=== PATIENT | female | born 1940 | race Caucasian/White ===

== ENCOUNTER → 2016-06-06 | Outpatient (REF) | payer MEDICARE ==
[~2016-06-06] MED LIST: ACET65TA PO; BENA20TA2 PO; CALCTAB22 OR; COUM10TA OR; GABA-279 PO; GABA300C3 PO; GABA300T OR; GLIP5TAB8 PO; GLUC500T OR; IBUP600T OR; LIDO5DIS EX; LIDO5DIS TOP; LISI10TA4 OR; LISI20TA5 OR; METF750T PO; MULTIVIT PO; NEUR400C OR; NEUR400C PO; NUCY50TA9 PO; PRAV10TA PO; PREV15CA OR; SIMV10TA2 OR; SIMV20TA2 OR; TRAM50TA2 PO; TRAN1.5D2 TOP; VITAMIN D50000 UNT OR; VOLT1GEL EX; WARF5VL PO; fish oil PO; vitamin c PO
[2016-06-06 12:51] LABS: ALBUMIN 3.7 GM/DL (3.2-5.2); ALBUMIN/GLOBULIN RATIO 1.28 (1.00-1.93); ALKALINE PHOSPHATASE 78 U/L (45-117); ALT/SGPT 44 U/L (12-78); ANION GAP 11 MEQ/L (8-16); AST/SGOT 28 U/L (15-37); BILIRUBIN,TOTAL 0.7 MG/DL (0.2-1.0); BLOOD UREA NITROGEN 11 MG/DL (7-18); CARBON DIOXIDE LEVEL 25 MEQ/L (21-32); CHLORIDE LEVEL 106 MEQ/L (98-107); CREATININE FOR GFR 0.57 MG/DL (0.55-1.02); GLOMERULAR FILTRATION RATE > 60.0 (>39); GLUCOSE, FASTING 186 MG/DL (83-110); POTASSIUM SERUM 4.1 MEQ/L (3.5-5.1); SODIUM LEVEL 142 MEQ/L (136-145); TOTAL PROTEIN 6.6 GM/DL (6.4-8.2)
== END ==
LOC: M LABDRAW1 11:32
PROVIDERS: ATTEND Internal Medicine
DX: E11.9 Type 2 diabetes mellitus without complications (principal); E55.9 Vitamin D deficiency, unspecified

== ENCOUNTER → 2016-08-06 | Outpatient (REF) | payer MEDICARE ==
[2016-08-06 18:12] LABS: VITAMIN B12 LEVEL 765 PG/ML (247-911)
[2016-08-06 18:13] LABS: FOLATE > 24.0 NG/ML (>5.4)
[2016-08-06 18:32] LABS: FERRITIN 27 NG/ML (8-252); T UPTAKE 31 % (30-39); THYROXINE (T4) 10.5 UG/DL (4.5-12.0); TOTAL IRON BINDING CAPACITY 385 UG/DL (250-450)
[2016-08-10 08:06] LABS: VITAMIN E LEVEL 7.9 mg/L (6.5-21.5)
== END ==
LOC: M LABNEURO 16:00
PROVIDERS: ATTEND Psychiatry & Neurology Neurology
DX: E11.40 Type 2 diabetes mellitus with diabetic neuropathy, unspecified (principal); Z13.29 Encounter for screening for other suspected endocrine disorder; E61.1 Iron deficiency

== ENCOUNTER → 2016-10-08 | Outpatient (REF) | payer MEDICARE ==
[~2016-10-08] MED LIST changes: +GABA-282 PO; -GABA300C3 PO
[2016-10-08 12:16] LABS: ALBUMIN 3.8 GM/DL (3.2-5.2); ALBUMIN/GLOBULIN RATIO 1.06 (1.00-1.93); ALKALINE PHOSPHATASE 98 U/L (45-117); ALT/SGPT 58 U/L (12-78); ANION GAP 11 MEQ/L (8-16); AST/SGOT 41 U/L (15-37); BILIRUBIN,TOTAL 0.9 MG/DL (0.2-1.0); BLOOD UREA NITROGEN 13 MG/DL (7-18); CALCIUM LEVEL 9.1 MG/DL (8.8-10.2); CARBON DIOXIDE LEVEL 27 MEQ/L (21-32); CHLORIDE LEVEL 101 MEQ/L (98-107); CHOLESTEROL LEVEL 175 MG/DL (<200); GLOMERULAR FILTRATION RATE > 60.0 (>39); GLUCOSE, FASTING 177 MG/DL (83-110); MAGNESIUM LEVEL 1.6 MG/DL (1.8-2.4); POTASSIUM SERUM 4.3 MEQ/L (3.5-5.1); SODIUM LEVEL 139 MEQ/L (136-145); TOTAL PROTEIN 7.4 GM/DL (6.4-8.2); TRIGLYCERIDES LEVEL 101 MG/DL (<150)
== END ==
LOC: M SFHCPLAZ 09:54
PROVIDERS: ATTEND Internal Medicine
DX: G25.81 Restless legs syndrome (principal); E11.9 Type 2 diabetes mellitus without complications; E78.00 Pure hypercholesterolemia, unspecified; R25.1 Tremor, unspecified

== ENCOUNTER → 2017-01-23 | Outpatient (REF) | payer MEDICARE ==
[~2017-01-23] MED LIST changes: -BENA20TA2 PO; +BENA20TA8 PO; +NUCY50TA6 PO; -NUCY50TA9 PO; -PRAV10TA PO; +PRAV10TA4 PO
[2017-01-23 13:01] LABS: MEAN CORPUSCULAR HEMOGLOBIN 30.8 pg (27.0-33.0); MEAN CORPUSCULAR HGB CONC 33.2 g/dl (32.0-36.5); MEAN CORPUSCULAR VOLUME 92.7 fl (80.0-96.0); RED CELL DISTRIBUTION WIDTH 12.9 % (11.5-14.5); WHITE BLOOD COUNT 7.5 K/mm3 (4.0-10.0)
[2017-01-23 13:46] LABS: ALBUMIN 3.9 GM/DL (3.2-5.2); ALBUMIN/GLOBULIN RATIO 1.22 (1.00-1.93); ALKALINE PHOSPHATASE 73 U/L (45-117); ALT/SGPT 50 U/L (12-78); ANION GAP 10 MEQ/L (8-16); AST/SGOT 36 U/L (15-37); BILIRUBIN,TOTAL 0.8 MG/DL (0.2-1.0); BLOOD UREA NITROGEN 15 MG/DL (7-18); CALCIUM LEVEL 8.6 MG/DL (8.8-10.2); CARBON DIOXIDE LEVEL 25 MEQ/L (21-32); CHLORIDE LEVEL 103 MEQ/L (98-107); CREATININE FOR GFR 0.59 MG/DL (0.55-1.02); GLOMERULAR FILTRATION RATE > 60.0 (>39); GLUCOSE, FASTING 137 MG/DL (83-110); MAGNESIUM LEVEL 1.9 MG/DL (1.8-2.4); POTASSIUM SERUM 4.6 MEQ/L (3.5-5.1); SODIUM LEVEL 138 MEQ/L (136-145); TOTAL PROTEIN 7.1 GM/DL (6.4-8.2)
== END ==
LOC: M LABDRAW1 09:20
PROVIDERS: ATTEND Internal Medicine
DX: G25.81 Restless legs syndrome (principal); E11.9 Type 2 diabetes mellitus without complications; I10 Essential (primary) hypertension

== ENCOUNTER → 2017-05-20 | Outpatient (REF) | payer MEDICARE ==
[2017-05-20 10:59] LABS: ESTIMATED AVERAGE GLUCOSE 146 MG/DL (60-110); HEMOGLOBIN A1c 6.7 %
[2017-05-20 11:04] LABS: ALBUMIN 3.7 GM/DL (3.2-5.2); ALBUMIN/GLOBULIN RATIO 1.09 (1.00-1.93); ALKALINE PHOSPHATASE 76 U/L (45-117); ALT/SGPT 47 U/L (12-78); ANION GAP 10 MEQ/L (8-16); AST/SGOT 38 U/L (7-37); BILIRUBIN,TOTAL 0.9 MG/DL (0.2-1.0); BLOOD UREA NITROGEN 14 MG/DL (7-18); CALCIUM LEVEL 8.9 MG/DL (8.8-10.2); CARBON DIOXIDE LEVEL 25 MEQ/L (21-32); CHLORIDE LEVEL 104 MEQ/L (98-107); CHOLESTEROL LEVEL 173 MG/DL (<200); CHOLESTEROL RISK RATIO 2.661 (<5); CREATININE FOR GFR 0.55 MG/DL (0.55-1.02); GLOMERULAR FILTRATION RATE > 60.0 (>39); GLUCOSE, FASTING 163 MG/DL (83-110); HDL CHOLESTEROL 65 MG/DL (>40); LDL CHOLESTEROL 89.8 MG/DL (<100); MAGNESIUM LEVEL 1.7 MG/DL (1.8-2.4); NON-HDL-C 108 MG/DL; POTASSIUM SERUM 4.2 MEQ/L (3.5-5.1); SODIUM LEVEL 139 MEQ/L (136-145); TOTAL PROTEIN 7.1 GM/DL (6.4-8.2); TRIGLYCERIDES LEVEL 91 MG/DL (<150)
== END ==
LOC: M SFHCPLAZ 08:40
DX: E11.9 Type 2 diabetes mellitus without complications (principal); I10 Essential (primary) hypertension; E78.00 Pure hypercholesterolemia, unspecified; G25.81 Restless legs syndrome
CPT/HCPCS: 83735

== ENCOUNTER → 2017-09-08 | Outpatient (REF) | payer MEDICARE ==
[2017-09-08 10:37] LABS: PLATELET COUNT, AUTOMATED 163 10^3/uL (150-450)
[2017-09-08 10:49] LABS: PROTHROMBIN TIME 14.4 SECONDS (12.4-14.5)
[2017-09-08 10:50] LABS: PARTIAL THROMBOPLASTIN TIME 38.2 SECONDS (26.8-37.9)
== END ==
LOC: M LABDRAW1 10:16
DX: Z01.818 Encounter for other preprocedural examination (principal); Z79.01 Long term (current) use of anticoagulants
CPT/HCPCS: 85049

== ENCOUNTER → 2017-09-30 | Outpatient (REF) | payer MEDICARE ==
[2017-09-30 12:29] LABS: C REACTIVE PROTEIN QUANTITATIV 0.35 MG/DL (0.00-0.30)
== END ==
LOC: M LABDRAW1 11:53
DX: M47.816 Spondylosis without myelopathy or radiculopathy, lumbar region (principal)
CPT/HCPCS: 86140

== ENCOUNTER → 2017-11-28 | Outpatient (REF) | payer MEDICARE ==
[2017-11-28 12:16] LABS: HEMATOCRIT 40.5 % (36.0-47.0); HEMOGLOBIN 13.3 g/dl (12.0-15.5); MEAN CORPUSCULAR HEMOGLOBIN 29.2 pg (27.0-33.0); MEAN CORPUSCULAR HGB CONC 32.8 g/dl (32.0-36.5); PLATELET COUNT, AUTOMATED 148 10^3/uL (150-450); RED BLOOD COUNT 4.55 10^6/uL (4.00-5.40); RED CELL DISTRIBUTION WIDTH 14.6 % (11.5-14.5); WHITE BLOOD COUNT 9.1 10^3/uL (4.0-10.0)
[2017-11-28 12:27] LABS: ALBUMIN 3.5 GM/DL (3.2-5.2); ALBUMIN/GLOBULIN RATIO 1.06 (1.00-1.93); ALKALINE PHOSPHATASE 75 U/L (45-117); ALT/SGPT 53 U/L (12-78); ANION GAP 10 MEQ/L (8-16); AST/SGOT 28 U/L (7-37); BLOOD UREA NITROGEN 14 MG/DL (7-18); CALCIUM LEVEL 8.9 MG/DL (8.8-10.2); CARBON DIOXIDE LEVEL 26 MEQ/L (21-32); CHLORIDE LEVEL 106 MEQ/L (98-107); CREATININE FOR GFR 0.68 MG/DL (0.55-1.30); GLOMERULAR FILTRATION RATE > 60.0 (>39); GLUCOSE, FASTING 137 MG/DL (70-100); MAGNESIUM LEVEL 1.7 MG/DL (1.8-2.4); POTASSIUM SERUM 4.2 MEQ/L (3.5-5.1); SODIUM LEVEL 142 MEQ/L (136-145); TOTAL PROTEIN 6.8 GM/DL (6.4-8.2)
[2017-11-28 18:55] LABS: MALB URINE SIEMENS 25.9 MG/L; MAU/CREAT RATIO 9.4 MCG/MG (0.0-30.0)
== END ==
LOC: M SFHCPLAZ 07:53
DX: G25.81 Restless legs syndrome (principal); I10 Essential (primary) hypertension; E11.9 Type 2 diabetes mellitus without complications
CPT/HCPCS: 83735

== ENCOUNTER → 2018-03-27 | Outpatient (REF) | payer MEDICARE ==
[2018-03-27 17:30] LABS: CREATININE FOR GFR 0.65 MG/DL (0.55-1.30); GLOMERULAR FILTRATION RATE > 60.0 (>39)
[2018-03-27 17:30] LABS: BLOOD UREA NITROGEN 13 MG/DL (7-18)
== END ==
LOC: M LABDRAW1 16:11
DX: M51.36 Other intervertebral disc degeneration, lumbar region (principal)
CPT/HCPCS: 82565

== ENCOUNTER → 2018-07-15 | Outpatient (REF) | payer MEDICARE ==
[~2018-07-15] MED LIST changes: +GABA-1171 PO; -GABA-279 PO; -GABA-282 PO; +GABA-843 PO; +NUCY50TA19 PO; -NUCY50TA6 PO
[2018-07-15 10:18] LABS: HEMOGLOBIN A1c 7.7 %
[2018-07-15 10:28] LABS: ALBUMIN 3.5 GM/DL (3.2-5.2); ALT/SGPT 54 U/L (12-78); BILIRUBIN,TOTAL 1.2 MG/DL (0.2-1.0); BLOOD UREA NITROGEN 12 MG/DL (7-18); CALCIUM LEVEL 8.6 MG/DL (8.8-10.2); CARBON DIOXIDE LEVEL 26 MEQ/L (21-32); CHLORIDE LEVEL 104 MEQ/L (98-107); CREATININE FOR GFR 0.48 MG/DL (0.55-1.30); GLOMERULAR FILTRATION RATE > 60.0 (>39); GLUCOSE, FASTING 157 MG/DL (70-100); POTASSIUM SERUM 3.9 MEQ/L (3.5-5.1); SODIUM LEVEL 139 MEQ/L (136-145)
[2018-07-15 10:42] LABS: MALB URINE SIEMENS 21.7 MG/L; MAU/CREAT RATIO 9.5 MCG/MG (0.0-30.0)
== END ==
LOC: M SFHCPLAZ 08:25
PROVIDERS: ATTEND Internal Medicine
DX: I10 Essential (primary) hypertension (principal); E11.9 Type 2 diabetes mellitus without complications

== ENCOUNTER → 2018-10-23 | Outpatient (REF) | payer MEDICARE ==
[~2018-10-23] MED LIST changes: +SCOP1PAT2 TOP; -TRAN1.5D2 TOP
[2018-10-23 11:05] LABS: HEMOGLOBIN 13.1 g/dl (12.0-15.5); MEAN CORPUSCULAR HEMOGLOBIN 30.6 pg (27.0-33.0); MEAN CORPUSCULAR HGB CONC 33.6 g/dl (32.0-36.5); MEAN CORPUSCULAR VOLUME 91.1 fl (80.0-96.0); PLATELET COUNT, AUTOMATED 149 10^3/uL (150-450); RED BLOOD COUNT 4.28 10^6/uL (4.00-5.40); WHITE BLOOD COUNT 8.2 10^3/uL (4.0-10.0)
[2018-10-23 11:14] LABS: HEMOGLOBIN A1c 9.4 %
[2018-10-23 11:26] LABS: ALBUMIN 3.5 GM/DL (3.2-5.2); ALT/SGPT 46 U/L (12-78); BILIRUBIN,TOTAL 1.1 MG/DL (0.2-1.0); BLOOD UREA NITROGEN 11 MG/DL (7-18); CALCIUM LEVEL 8.9 MG/DL (8.8-10.2); CARBON DIOXIDE LEVEL 27 MEQ/L (21-32); CHLORIDE LEVEL 103 MEQ/L (98-107); GLOMERULAR FILTRATION RATE > 60.0 (>39); GLUCOSE, FASTING 164 MG/DL (70-100); SODIUM LEVEL 139 MEQ/L (136-145); TOTAL PROTEIN 7.3 GM/DL (6.4-8.2)
== END ==
LOC: M SFHCPLAZ 08:11
PROVIDERS: ATTEND Internal Medicine
DX: G25.81 Restless legs syndrome (principal); E11.9 Type 2 diabetes mellitus without complications

== ENCOUNTER 2018-12-13 08:54 | Inpatient (IN) | payer MEDICARE ==
[~2018-12-13] VITALS: Ht 152.4 cm; Wt 63.6 kg
[2018-12-13] MEDS ORDERED: GABA600T4 PO (09:25)
[2018-12-13] MEDS ORDERED: JARD1TAB PO (09:25)
[2018-12-13] MEDS ORDERED: PRAM0.754 PO ×2 (09:25→09:53)
[2018-12-13] MEDS ORDERED: NS 1,000 ML IV ONE (09:30)
[2018-12-13] MEDS ORDERED: PANTOPRAZOLE 40MG INJ (PROTONIX) (C9113) IV ONE (09:30)
[2018-12-13] MEDS ORDERED: ONDANSETRON 4MG/2ML VIAL (J2405) IV ONE (09:30)
[2018-12-13] MEDS ORDERED: PANTOPRAZOLE SODIUM 40 MG in D5W 50 ML IV SCH (09:30)
[2018-12-13 09:45] LABS: HEMATOCRIT 28.7 % (36.0-47.0); HEMOGLOBIN 8.9 g/dl (12.0-15.5); PLATELET COUNT, AUTOMATED 219 10^3/uL (150-450); RED BLOOD COUNT 2.87 10^6/uL (4.00-5.40)
[2018-12-13 09:52] LABS: WHITE BLOOD COUNT 22.3 10^3/uL (4.0-10.0)
[2018-12-13] MEDS ORDERED: BENA40TA7 PO (09:53)
[2018-12-13] MEDS ORDERED: DULO1CAP4 PO (09:53)
[2018-12-13] MEDS ORDERED: CALCTAB17 PO (09:53)
[2018-12-13] MEDS ORDERED: ACE65ERTAB PO (09:53)
[2018-12-13 09:56] LABS: INR 1.33; PROTHROMBIN TIME 16.2 SECONDS (11.8-14.0)
[2018-12-13 09:57] LABS: PARTIAL THROMBOPLASTIN TIME 30.2 SECONDS (25.0-38.4)
[2018-12-13 10:19] LABS: BASOPHILS 1 % (0-4); LYMPHOCYTES 44 % (16-52); MONOCYTES 2 % (0-8); NEUTROPHILS 53 % (35-75); PLATELET ESTIMATE NORMAL (NORMAL)
[2018-12-13 10:20] LABS: ALBUMIN 2.9 GM/DL (3.2-5.2); ALT/SGPT 47 U/L (12-78); ANISOCYTOSIS 1+; BILIRUBIN,DIRECT 0.3 MG/DL (0.0-0.2); BLOOD UREA NITROGEN 43 MG/DL (7-18); CALCIUM LEVEL 8.5 MG/DL (8.8-10.2); CARBON DIOXIDE LEVEL 11 MEQ/L (21-32); CHLORIDE LEVEL 113 MEQ/L (98-107); CK-MB VALUE MASS 2.5 NG/ML (<3.6); CPK CREATINE PHOSPHOKINASE 85 U/L (26-192); CREATININE FOR GFR 0.88 MG/DL (0.55-1.30); GLOMERULAR FILTRATION RATE > 60.0 (>39); GLUCOSE, FASTING 193 MG/DL (70-100); MB/CK RELATIVE INDEX 2.94 (< OR =4); POTASSIUM SERUM 4.5 MEQ/L (3.5-5.1); SODIUM LEVEL 143 MEQ/L (136-145); TOTAL PROTEIN 6.2 GM/DL (6.4-8.2); TROPONIN I 0.02 NG/ML (< 0.10)
[2018-12-13] MEDS: NS 1,000 ML IV SCH ×3 (11:30→23:00)
[2018-12-13] MEDS ORDERED: DEXTROSE 50% 50 ML SYRINGE IV PRN (11:45)
[2018-12-13] MEDS ORDERED: GLUCOSE 4 GM CHEW TABLET PO PRN (11:45)
[2018-12-13] MEDS ORDERED: GLUCAGON FOR INJ 1 MG VIAL (J1610) SC PRN (11:45)
[2018-12-13] MEDS: HumaLOG INSULIN (NovoLOG) PER UNIT SC SCH ×3 (12:00→22:09)
--- NOTE | 2018-12-13 12:02 | HPEPDOC ---
[facility] Medical History & Physical Date of Admission Dec 13, 2018 Date of Service: Dec 13, 2018 History and Physical PCP: Alexander Joshi CHIEF COMPLAINT: Abdominal pain and vomiting blood HISTORY OF PRESENT ILLNESS: Patient is a 77-year-old female who has never had any similar presenting symptoms in the past who presented present since Friday afternoon evening having lower abdominal pain worsened by even drinking water. He tells me that shortly thereafter Friday evening she began to have vomiting of dark coffee ground emesis as well as dark tarry stools she had so many episodes of this she cannot recall discontinued on Friday night Friday into Friday morning prompted her to present to the emergency room today. Her pain is still persistent she denies any NSAID use and history of GI bleeding she's had a colonoscopy in the past several times DR. Lopez and only polyps removed.. Otherwise patient denies weight loss, hair loss, headache, visual changes, chest pain, shortness of breath, cough, diarrhea, muscle aches, worsening arthritis, change in mood PAST MEDICAL HISTORY: 1. Diabetes. 2. Hypertension. 3. 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 HOME MEDICATIONS: Please see below. ALLERGIES: Please see below PAST SURGICAL HISTORY: 1. L5-S1 laminectomy. 2. Right total knee replacement. 3. Breast abscess drainage 4. Bilateral cataract extraction. SOCIAL HISTORY: Lives with: , Employment: Not currently working, Tobacco use: Denies. ETOH: Denies, Illicit drug use: Denies, Tattoos done unprofessionally: Denies, CODE STATUS: Full code FAMILY HISTORY:Reviewed and noncontributory REVIEW OF SYSTEMS: 10 systems reviewed and negative other than HPI PHYSICAL EXAMINATION: VITAL SIGNS: Temperature 96.9, pulse 129, respiratory rate 18, blood pressure 90/60 initially now 126/62, pulse oximetry 94 % on room air. GENERAL: Pleasant pale elderly female laying flat in bed awake alert oriented speaking in complete sentences no acute distress HEENT: Dry mucous membranes no elevation and CVP CARDIOVASCULAR: S1 S2 tachycardic no additional heart sounds appreciated. RESPIRATORY: Clear to auscultation bilaterally. ABDOMINAL: Bowel sounds present abdomen soft and tender to palpation in the epigastric region not in the lower quadrants EXTREMITIES: No clubbing cyanosis or edema NEUROLOGICAL: Spontaneously moves all 4 extremities cranial 2 through 12 grossly intact no gross focal deficits appreciated PSYCHOLOGICAL: Appropriate LABORATORY DATA: See below. MICROBIOLOGY: Please see below. IMAGING: Chest x-ray: Report pending ASSESSMENT & PLAN: This is a 77-year-old female with likely upper GI bleed and acute blood loss anemia with symptoms. PROBLEMS: 1. Symptomatic anemia secondary to acute upper GI bleed: Average Dr. Dr. Estes performed above her presentation and my concerns with which he agrees. The patient will be kept nothing by mouth I'll continue IV fluids she received 2 units of PRBCs she'll be continued on a Protonix drip started in the emergency room with plan for urgent endoscopy within the next several hours operative is been made aware. She has an acute drop in hemoglobin to 8.9 from where it was previously 13 less than 1 month ago she does have an elevated BUN as well as well as her history of coffee-ground emesis and dark tarry stools and epigastric tenderness highly suggestive of upper GI bleed. We will monitor hemoglobin and hematocrit. We'll check orthostatics admit to PCU 2. Diabetes: She'll be nothing by mouth however on sliding scale every 6 hours as well as hypoglycemic protocol 3.Of mood disorder: Hold duloxetine 4. Hypertension: She is actually hypotensive in the setting of active acute bleeding we'll hold her benazepril 5. Dyslipidemia: We will hold her pravastatin 6. Anion gap metabolic acidosis: Likely multifactorial related to her elevated BUN likely an element of lactic acidosis as well will monitor and repeat BMPs DVT PROPHYLAXIS: Sequential teds no pharmacological agents in the setting of active bleeding DISPOSITION: Prognosis is guarded admitted to progressive care unit with urgent GI consultation for urgent EGD Vital Signs Vital Signs Date Time Temp Pulse Resp B/P (MAP) Pulse Ox O2 Delivery O2 Flow Rate FiO2 12/13/18 11:30 111 130/62 (84) 97 12/13/18 08:55 96.9 23 Room Air Laboratory Data Labs 24H Laboratory Tests 2 12/13/18 09:36: White Blood Count 22.3H, Red Blood Count 2.87L, Hemoglobin 8.9L, Hematocrit 28.7L, Mean Corpuscular Volume 100.0H, Mean Corpuscular Hemoglobin 31.0, Mean Corpuscular Hemoglobin Concent 31.0L, Red Cell Distribution Width 13.7, Platelet Count 219, Lymphocytes # (Auto) , Nucleated Red Blood Cells % (auto) 0.0, Neutro phils 53, Lymphocytes (Manual) 44, Monocytes (Manual) 2, Basophils (Manual) 1, Platelet Estimate NORMAL, Anisocytosis 1+, Prothrombin Time 16.2H, Prothromb Time International Ratio 1.33, Activated Partial Thromboplast Time 30.2, Anion Gap 19H, Glomerular Filtration Rate > 60.0, Calcium Level 8.5L, Aspartate Amino Transf (AST/SGOT) 45H, Alanine Aminotransferase (ALT/SGPT) 47, Alkaline Phosphatase 70, Total Bilirubin 1.0, Direct Bilirubin 0.3H, Total Creatine Kinase 85, Creatine Kinase MB 2.5, Creatine Kinase MB Relative Index 2.94, Troponin I 0.02, Total Protein 6.2L, Albumin 2.9L, Albumin/Globulin Ratio 0.88L CBC/BMP Laboratory Tests 12/13/18 09:36 Red Blood Count 2.87 L, Mean Corpuscular Volume 100.0 H, Mean Corpuscular Hemoglobin 31.0, Mean Corpuscular Hemoglobin Concent 31.0 L, Red Cell Distribution Width 13.7, Lymphocytes # (Auto) Home Medications Scheduled Benazepril HCl (Benazepril HCl) 40 Mg Tablet, 40 MG PO DAILY Calcium/Magnesium/Zinc (Qxoxmyl-Gxzeosevx-Xmmt Tablet) 1 Each Tablet, 1 TAB PO DAILY Duloxetine Hcl (Duloxetine HCl) 20 Mg Capsule.dr, 40 MG PO DAILY Empagliflozin (Jardiance) 10 Mg Tablet, 10 MG PO DAILY Gabapentin (Gabapentin) 600 Mg Tablet, 600 MG PO BID Glipizide (Glipizide) 5 Mg Tab, 5 MG PO BIDWM Metformin HCl (Metformin HCl ER) 750 Mg Tab, 1,500 MG PO QPM WITH DINNER Pramipexole Di-HCl (Pramipexole Dihydrochloride) 0.75 Mg Tablet, 0.75 MG PO QPM TAKES AT 1800 Pramipexole Di-HCl (Pramipexole Dihydrochloride) 0.75 Mg Tablet, 1.5 MG PO QHS Pravastatin Sodium (Pravastatin Sodium) 10 Mg Tab, 10 MG PO DAILY Scheduled PRN Acetaminophen (Acetaminophen ER) 650 Mg Tablet.er, 650 MG PO Q8H PRN for PAIN Allergies Coded Allergies: codeine (Verified Adverse Reaction, Mild, N/V , HALLUCINATIONS, 12/13/18) A-FIB/CHADSVASC A-FIB History Current/History of A-Fib/PAF?: No KENNEDY SHOOK MD Dec 13, 2018 12:02
[2018-12-13] MEDS: PANTOPRAZOLE SODIUM 40 MG in D5W 50 ML IV SCH ×3 (13:14→23:00)
[2018-12-13] MEDS ORDERED: PHENYLephrine HCL 500 MCG/5 ML (100MCG/ML) SYRINGE (J2370) As Ordered ONE (14:00)
[2018-12-13] MEDS ORDERED: ROCURONIUM BROMIDE 50 MG/5 ML VIAL As Ordered ONE (14:00)
[2018-12-13] MEDS ORDERED: dexameTHASONE 4 MG/ML 1ML VIAL (J1100) As Ordered ONE (14:00)
[2018-12-13] MEDS ORDERED: MIDAZOLAM INJ 2 MG/2 ML VIAL (J2250) As Ordered ONE (14:00)
[2018-12-13] MEDS ORDERED: LIDOCAINE 2% INJ 100 MG/5 ML SDV (FOR ANES.) As Ordered ONE (14:00)
[2018-12-13] MEDS ORDERED: fentaNYL 100 MCG/2 ML INJECTION (J3010) As Ordered ONE ×2 (14:00→15:01)
[2018-12-13] MEDS ORDERED: PROPOFOL 200 MG/20 ML VIAL As Ordered ONE (14:00)
[2018-12-13] MEDS ORDERED: SUCCINYLCHOLINE 100 MG/5 ML SYRINGE (J0330) As Ordered ONE (14:00)
[2018-12-13] MEDS ORDERED: ONDANSETRON 4MG/2ML VIAL (J2405) As Ordered ONE (14:00)
--- NOTE | 2018-12-13 14:36 | ROOR ---
Patient Name: Ingrid Cantu Procedure Date: 12/13/2018 12:54 PM Date of : 1940 Age: 77 Gender: Female Note Status: Finalized Procedure: Upper GI endoscopy Indications: Coffee-ground emesis, Hematemesis, Melena, Active gastrointestinal bleeding, Suspected upper gastrointestinal bleeding Providers: Mk Estes MD Referring MD: 1. No Referring Physician 1. No Referring Physician, Admin. Requesting Provider: Medicines: Monitored Anesthesia Care Complications: No immediate complications. Procedure: Pre-Anesthesia Assessment: - The heart rate, respiratory rate, oxygen saturations, blood pressure, adequacy of pulmonary ventilation, and response to care were monitored throughout the procedure. The Endoscope was introduced through the mouth, and advanced to the second part of duodenum. The upper GI endoscopy was accomplished without difficulty. The patient tolerated the procedure well. Findings: The Z-line was regular and was found 35 cm from the incisors. Small (< 5 mm) varices were found at the gastroesophageal junction. A small hiatal hernia was present. A large amount of food (residue) was found on the greater curvature of the stomach. The exam of the duodenum was otherwise normal. The exam was otherwise without abnormality. Impression: - Z-line regular, 35 cm from the incisors. - Small (< 5 mm) esophageal varices. - Small hiatal hernia. - A large amount of food (residue) in the stomach. - The examination was otherwise normal. - No specimens collected. - The examination was otherwise normal. Recommendation: - Patient has a contact number available for emergencies. The signs and symptoms of potential delayed complications were discussed with the patient. Return to normal activities tomorrow. Written discharge instructions were provided to the patient. - Continue present medications. - Return to referring physician. - [facility]. - NPO. - Repeat upper endoscopy tomorrow. - The findings and recommendations were discussed with the patient's family. Mk Estes MD Mk Estes MD 12/13/2018 2:36:21 PM Electronically signed by Mk Estes MD Number of Addenda: 0 Note Initiated On: 12/13/2018 12:54 PM Estimated Blood Loss: Estimated blood loss: none.
[2018-12-13] MEDS ORDERED: METOCLOPRAMIDE INJ 10MG/2ML VIAL (J2765) As Ordered ONE (14:45)
[2018-12-13] MEDS: METOCLOPRAMIDE INJ 10MG/2ML VIAL (J2765) IV SCH ×2 (14:48→22:03)
[2018-12-13] MEDS: fentaNYL 100 MCG/2 ML INJECTION (J3010) IV PRN ×2 (15:01→15:06)
[2018-12-13] MEDS ORDERED: ONDANSETRON 4MG/2ML VIAL (J2405) IV PRN (15:15)
[2018-12-13] MEDS ORDERED: NS 1,000 ML IV SCH (15:15)
[2018-12-13 15:47] LABS: HEMOGLOBIN A1c 8.8 %
[2018-12-13 16:00] VITALS: BP 151/67
[2018-12-13 17:37] LABS: HEMATOCRIT 31.5 % (36.0-47.0); HEMOGLOBIN 10.1 g/dl (12.0-15.5)
[2018-12-13 20:00] VITALS: BP 132/60
[2018-12-13] MEDS ORDERED: rOPINIRole 0.25 MG TAB(REQUIP) PO SCH (21:00)
--- NOTE | 2018-12-13 21:25 | ECGEPIP ---
[facility] - ED Test Date: 2018-12-13 Pat Name: ELIZABETH JIMENES Department: Room: - Gender: Female [employer]ing [employer] Operator: : 1940 Requested By: Kamron Cuadra Order Number: [id number] Reading MD: Kylee Argueta Measurements Intervals Carman Rate: 152 P: 216 LA: 141 QRS: 51 QRSD: 88 T: 43 QT: 294 QTc: 468 Interpretive Statements SINUS TACHYCARDIA, POSSIBLE ATRIAL FLUTTER NSTTW abnormalities ABNORMAL RHYTHM ECG SINUS RHYTHM 01/25/16 Electronically Signed on 12-13-2018 21:25:28 EDT by Kylee Argueta
[2018-12-14] VITALS: BP 136/60
[2018-12-14] MEDS ORDERED: rOPINIRole 0.25 MG TAB(REQUIP) PO ONE (01:30)
[2018-12-14] MEDS: METOCLOPRAMIDE INJ 10MG/2ML VIAL (J2765) IV SCH ×4 (02:18→19:59)
[2018-12-14 04:00] VITALS: BP 123/58
[2018-12-14] MEDS: PANTOPRAZOLE SODIUM 40 MG in D5W 50 ML IV SCH ×4 (04:13→19:59)
[2018-12-14] MEDS: HumaLOG INSULIN (NovoLOG) PER UNIT SC SCH ×3 (05:19→18:26)
[2018-12-14 06:30] LABS: HEMATOCRIT 26.8 % (36.0-47.0); HEMOGLOBIN 9.2 g/dl (12.0-15.5); MEAN CORPUSCULAR HEMOGLOBIN 30.9 pg (27.0-33.0); MEAN CORPUSCULAR HGB CONC 34.3 g/dl (32.0-36.5); MEAN CORPUSCULAR VOLUME 89.9 fl (80.0-96.0); RED BLOOD COUNT 2.98 10^6/uL (4.00-5.40); WHITE BLOOD COUNT 14.9 10^3/uL (4.0-10.0)
[2018-12-14 06:44] LABS: BLOOD UREA NITROGEN 41 MG/DL (7-18); CALCIUM LEVEL 7.9 MG/DL (8.8-10.2); CARBON DIOXIDE LEVEL 20 MEQ/L (21-32); CHLORIDE LEVEL 115 MEQ/L (98-107); CREATININE FOR GFR 0.59 MG/DL (0.55-1.30); GLOMERULAR FILTRATION RATE > 60.0 (>39); GLUCOSE, FASTING 168 MG/DL (70-100); POTASSIUM SERUM 3.4 MEQ/L (3.5-5.1); SODIUM LEVEL 143 MEQ/L (136-145)
[2018-12-14 06:56] LABS: PLATELET COUNT, AUTOMATED 111 10^3/uL (150-450)
[2018-12-14] MEDS: NS 1,000 ML IV SCH ×2 (07:22→18:26)
--- NOTE | 2018-12-14 07:54 | CR ---
DATE OF CONSULTATION: 12/13/2018 HISTORY OF PRESENT ILLNESS: This is a 77-year-old white female who presented to [facility] ([facility]) with acute onset of hematemesis with tarry stools since Friday. The patient had some initial lower abdominal pain and cramps and then some radiation to the epigastric area. The patient does not take any nonsteroidal anti-inflammatories (NSAIDS), aspirin, Motrin or Aleve. The patient denies any history of alcohol abuse. No apparent fevers, night sweats, shaking chills or weight loss. The patient had a previous colonoscopy by Dr. Lopez only polyps were removed. The patient had several episodes of coffee-ground emesis with some fresh blood. There is no previous history of peptic ulcer disease. The patient again denies heavy alcohol intake. PAST MEDICAL HISTORY: Positive for: 1. Diabetes. 2. Hypertension. 3. Dyslipidemia. 4. Osteoarthritis. 5. Fatty liver. 6. Spinal stenosis. 7. The patient has polyps on previous colonoscopy. ALLERGIES: No allergies known. PAST SURGICAL HISTORY: 1. Status post laminectomy. 2. Right total knee replacement. 3. Bilateral cataract extraction. SOCIAL HISTORY: Cigarettes, none. Alcohol, the patient denies. FAMILY HISTORY: Family history is noncontributory to the above problem. REVIEW OF SYSTEMS: 10-point review of systems is negative. PHYSICAL EXAMINATION: General: Well-developed, well-nourished white female in no obvious acute distress. Appears stated age. Abdomen: Soft, some mild epigastric tenderness. No obvious significant rebound tenderness. No hepatosplenomegaly. Bowel sounds are positive. LABORATORY STUDIES: Laboratory studies on admission showed a white count of 22,300, hemoglobin 8.9, hematocrit 20.7. The patient was given to 2 units of packed cells and last blood count today was 10.1 and 31.5. The patient's coagulation showed an INR 1.33. The patient's chemistry was liver enzymes were normal. Troponins were negative. Albumin was 2.9. The patient's renal functions were normal. IMAGING STUDIES: Imaging studies were obtained. The patient had a chest x-ray which was essentially negative. ANALYSIS: 1. Hematemesis. Coffee-ground vomiting with hematemesis. 2. Melena of unknown etiology. PLAN: 1. At this time the plan will be to set the patient up an upper endoscopy for further evaluation. 2. Would consider possible abdominal CT for further evaluation of the patient's abdominal pain and white count.
[2018-12-14 08:00] VITALS: BP 131/60
[2018-12-14] MEDS ORDERED: PILL CUTTER 1 EACH XX PRN (09:45)
[2018-12-14 12:00] VITALS: BP 149/67
[2018-12-14 13:05] LABS: HEMATOCRIT 26.1 % (36.0-47.0); HEMOGLOBIN 8.8 g/dl (12.0-15.5)
--- NOTE | 2018-12-14 13:56 | IPNPDOC ---
Subjective Date Seen The patient was seen on 12/14/18. Subjective Chief Complaint/HPI Pt is a 77 F who presented with likely upper GI bleed. She recieved two units PRBCs yesterday. She continues to have dark tarry stool when she wipes. She continues to have epigastric pain which is improving. No nausea or vomitting overnight. She had an EGD yesterday but was incomplete due to food remaining in the stomach. Repeat EGD is planned for today. She continued to have symptoms of restless leg syndrome overnight, despite treatment with requip. She states she typically takes mirapex at home. She did get up to walk three times overnight but states this did not help. Constitutional: Reports: Weakness; Denies: Chills, Fever, Night Sweats ENT: Reports: Head Aches (feels this is related to not sleeping well) Pulmonary: Denies: Dyspnea, Cough Cardiovascular: Denies: Chest Pain, Palpitations, Lt Headedness Gastrointestinal: Reports: Abdominal Pain, Melena; Denies: Nausea, Vomiting, Diarrhea, Constipation Genitourinary: Denies: Dysuria, Frequency Neurological: Denies: Confusion Psych: Reports: Mood Normal Objective Physical Examination General Exam: Positive: Alert, Cooperative, No Acute Distress Eye Exam: Positive: PERRLA, Conjunctiva & lids normal, EOMI; Negative: Sclera icteric ENT Exam: Positive: Atraumatic, Mucous membr. moist/pink, Pharynx Normal Neck Exam: Positive: Supple; Negative: JVD, thyromegaly Chest Exam: Positive: Clear to auscultation, Normal air movement; Negative: Wheezing Heart Exam: Positive: Rate Normal Abdomen Exam: Positive: Normal bowel sounds, Soft, Tenderness (epigastric region); Negative: Mass Extremity Exam: Positive: Normal pulses; Negative: Cyanosis, Edema Skin Exam: Positive: Nl turgor and temperature Neuro Exam: Positive: Normal Speech Psych Exam: Positive: Mental status NL, Mood NL, Oriented x 3 Assessment /Plan Assessment This is a 77-year-old female with symptomatic acute blood loss anemia likely secondary to GI bleed Plan/VTE VTE Prophylaxis Ordered?: Yes (sequentials and TEDs) VTE Exclusion Pharmacological: Active Bleeding Plan 1. Symptomatic anemia likely secondary to acute upper GI bleed: She has an acute drop in hemoglobin to 8.9 from where it was previously 13 less than 1 month ago she does have an elevated BUN as well as well as her history of coffee-ground emesis and dark tarry stools and epigastric tenderness highly suggestive of upper GI bleed. Pt remains NPO and is on protonix drip. She received 2 units PRBCs last night and her H/H have been stable, will continue to monitor. Dr. Estes performed an EGD which was not completed due to food remaining the in the stomach. Plan for repeat EGD this afternoon to further evaluate. Consulted GI, appreciate their input. 2. Diabetes Mellitus: She remains NPO. She is on sliding scale insulin every 6 hours as well as hypoglycemic protocol. HgA1c is 8.8 3. Mood disorder: Hold duloxetine 4. Hx of Hypertension: She was hypotensive on presentation so her home benazepril was held. Will continue to hold unless her blood pressure rises above normal limits. 5. Dyslipidemia: We will continue to hold her pravastatin 6. Anion gap metabolic acidosis: Likely multifactorial related to her elevated BUN likely an element of lactic acidosis. Anion gap improved to 8. Will continue to monitor BMP. 7. Restless Leg Syndrome: Discontinued Requip as this did not help her last night. Will restart her home medication Mirapex tonight. Disposition Prognosis is guarded remains admitted to PCU and in need of repeat EGD VS, I&O, 24H, Fishbone Vital Signs/I&O Vital Signs Date Time Temp Pulse Resp B/P (MAP) Pulse Ox O2 Delivery O2 Flow Rate FiO2 12/14/18 08:00 97.6 89 18 131/60 (83) 98 12/13/18 13:15 Room Air I&O- Last 24 Hours up to 6 AM 12/14/18 05:59 Intake Total 2525 ml Output Total 1925 ml Balance 600 ml Laboratory Data 24H LABS Laboratory Tests 2 12/13/18 14:34: Estimated Mean Plasma Glucose 206H, Hemoglobin A1c 8.8 12/13/18 17:45: Bedside Glucose (Misc Panel) 224H 12/13/18 22:01: Bedside Glucose (Misc Panel) 174H 12/14/18 05:14: Bedside Glucose (Misc Panel) 177H 12/14/18 05:59: Nucleated Red Blood Cells % (auto) 0.0, Anion Gap 8, Glomerular Filtration Rate > 60.0, Blood Urea Nitrogen 41H, Creatinine 0.59, Sodium Level 143, Potassium Level 3.4#L, Chloride Level 115H, Carbon Dioxide Level 20L, Calcium Level 7.9L CBC/BMP Laboratory Tests 12/13/18 17:23 12/14/18 05:59 Red Blood Count 2.98 L, Mean Corpuscular Volume 89.9, Mean Corpuscular Hemoglobin 30.9, Mean Corpuscular Hemoglobin Concent 34.3, Red Cell Distribution Width 14.9 H, Calcium Level 7.9 L GME ATTESTATION GME ATTESTATION My faculty preceptor for this patient encounter was physically present during the encounter and was fully available. All aspects of the patient interview, examination, medical decision making process, and medical care plan development were reviewed and approved by the faculty preceptor. The faculty preceptor is a coleman and concurs with the plan as stated in the body of this note and will attest to such by his/her cosignature. RALPH AWAN PGY-1 Dec 14, 2018 10:00
[2018-12-14] MEDS ORDERED: LIDOCAINE 2% INJ 100 MG/5 ML SDV (FOR ANES.) As Ordered ONE (14:39)
[2018-12-14] MEDS ORDERED: PROPOFOL 200 MG/20 ML VIAL As Ordered ONE (14:39)
--- NOTE | 2018-12-14 14:57 | ROOR ---
Patient Name: Ingrid Cantu Procedure Date: 12/14/2018 2:45 PM Date of : 1940 Age: 77 Room: [facility] Gender: Female Note Status: Ocular Care Technologist Override Procedure: Upper GI endoscopy Indications: Coffee-ground emesis, Hematemesis, Gastrointestinal bleeding of unknown origin Providers: Mk Estes MD Referring MD: 2. Inpatient 2. Inpatient Requesting Provider: Medicines: Monitored Anesthesia Care Complications: No immediate complications. Procedure: Pre-Anesthesia Assessment: - The heart rate, respiratory rate, oxygen saturations, blood pressure, adequacy of pulmonary ventilation, and response to care were monitored throughout the procedure. The Endoscope was introduced through the mouth, and advanced to the second part of duodenum. The upper GI endoscopy was accomplished without difficulty. The patient tolerated the procedure well. Findings: The Z-line was regular and was found 40 cm from the incisors. A small hiatal hernia was present. Grade II varices were found in the lower third of the esophagus. They were small in size. No other significant abnormalities were identified in a careful examination of the stomach. The exam of the duodenum was otherwise normal. Impression: - Z-line regular, 40 cm from the incisors. - Small hiatal hernia. - Grade II esophageal varices. - No specimens collected. - The examination was otherwise normal. Recommendation: - Patient has a contact number available for emergencies. The signs and symptoms of potential delayed complications were discussed with the patient. Return to normal activities tomorrow. Written discharge instructions were provided to the patient. - Resume regular diet. - [facility]. - Continue present medications. - Return to GI office in 3 weeks. - The findings and recommendations were discussed with the patient's family. Mk Estes MD Mk Estes MD 12/14/2018 2:56:56 PM Electronically signed by Mk Estes MD Number of Addenda: 0 Note Initiated On: 12/14/2018 2:45 PM Estimated Blood Loss: Estimated blood loss: none.
[2018-12-14 16:00] VITALS: BP 130/59
[2018-12-14] MEDS ORDERED: PRAMIPEXOLE 0.25 MG TAB PO SCH (18:00)
[2018-12-14 18:34] LABS: HEMATOCRIT 25.4 % (36.0-47.0); HEMOGLOBIN 8.4 g/dl (12.0-15.5)
[2018-12-14 19:03] VITALS: BP 153/67
[2018-12-14] MEDS ORDERED: PRAMIPEXOLE 1 MG TAB PO SCH (21:00)
[2018-12-14] MEDS ORDERED: HumaLOG INSULIN (NovoLOG) PER UNIT SC SCH (21:00)
[2018-12-15] VITALS: BP 144/65
[2018-12-15] MEDS: PANTOPRAZOLE SODIUM 40 MG in D5W 50 ML IV SCH ×2 (01:14→06:00)
[2018-12-15] MEDS: NS 1,000 ML IV SCH (02:20)
[2018-12-15] MEDS: METOCLOPRAMIDE INJ 10MG/2ML VIAL (J2765) IV SCH (03:04)
[2018-12-15 04:00] VITALS: BP 138/70
[2018-12-15 06:02] LABS: HEMATOCRIT 26.5 % (36.0-47.0); HEMOGLOBIN 8.9 g/dl (12.0-15.5); MEAN CORPUSCULAR HEMOGLOBIN 30.7 pg (27.0-33.0); MEAN CORPUSCULAR HGB CONC 33.6 g/dl (32.0-36.5); MEAN CORPUSCULAR VOLUME 91.4 fl (80.0-96.0); WHITE BLOOD COUNT 8.8 10^3/uL (4.0-10.0)
[2018-12-15 06:32] LABS: BLOOD UREA NITROGEN 20 MG/DL (7-18); CALCIUM LEVEL 7.2 MG/DL (8.8-10.2); CARBON DIOXIDE LEVEL 19 MEQ/L (21-32); CHLORIDE LEVEL 114 MEQ/L (98-107); CREATININE FOR GFR 0.43 MG/DL (0.55-1.30); GLOMERULAR FILTRATION RATE > 60.0 (>39); GLUCOSE, FASTING 132 MG/DL (70-100); SODIUM LEVEL 142 MEQ/L (136-145)
[2018-12-15 06:42] LABS: PLATELET COUNT, AUTOMATED 86 10^3/uL (150-450)
[2018-12-15] MEDS: HumaLOG INSULIN (NovoLOG) PER UNIT SC SCH (07:46)
[2018-12-15 08:00] VITALS: BP 170/90
[2018-12-15] MEDS ORDERED: POTASSIUM CHLORIDE 10 MEQ SR TABLET PO ONE ×2 (08:00→10:00)
--- NOTE | 2018-12-15 15:19 | REP ---
Portable chest, 09:24 a.m., single AP view with the patient semi upright: Comparison is 01/25/2016. The lung arias are clear. The cardiac size is normal. The maynor, mediastinum, and skeletal structures are unremarkable. Impression: Negative portable chest. There is no interval change. Electronically Signed by Jamari Joiner MD 12/13/2018 10:03 A
--- NOTE | 2018-12-15 16:10 | DS.PDOC ---
Discharge Summary General Date of Admission Dec 13, 2018 at 11:15 Date of Discharge December 15 2018 Primary Care Physician: Alexander Joshi Attending Physician: JOIE SILVA MD Specialist/Consultants Involve: Mk Estes Discharge Summary PROCEDURES PERFORMED DURING STAY: EGD. ADMITTING DIAGNOSES: 1. Symptomatic anemia secondary to acute upper GI bleed 2. Mood disorder 3. Hypertension 4. Dyslipidemia 5. Anion gap metabolic acidosis DISCHARGE DIAGNOSES: 1. Acute blood loss anemia secondary to GI bleed 2. Mood disorder 3. Hypertension 4. Dyslipidemia 5. Restless leg syndrome 6. Esophageal varices without acute bleeding COMPLICATIONS/CHIEF COMPLAINT: Vomiting blood HISTORY OF PRESENT ILLNESS: 77 year old female presented with two day history of worsening epigastric abdominal pain, vomiting of dark coffee-ground emesis, and dark tarry stools. She denied history of NSAID use or prior GI bleeding. HOSPITAL COURSE: She was admitted to PCU and transfused with 2 units PRBCs. She was also placed on a protonix drip. She had an EGD to evaluate but this had to be repeated on the second day of her admission due to food in her stomach during the initial procedure. The repeat EGD showed esophageal varices but there was no active bleed. She did not have recurrent vomiting and the dark tarry stools resolved. Her epigastric pain improved as well. Her H/H improved with the transfusion and has remained stable. She did not require further transfusions. DISCHARGE MEDICATIONS: Please see below. ALLERGIES: Please see below. PHYSICAL EXAMINATION ON DISCHARGE: VITAL SIGNS: Please see below. GENERAL: Appears comfortable, in no acute distress HEENT: Moist mucus membranes NECK: Supple, no JVD CARDIOVASCULAR EXAMINATION: Regular rate and rhythm, normal S1 and S2. No murmurs. RESPIRATORY EXAMINATION: Clear to auscultation bilaterally ABDOMINAL EXAMINATION: Soft, nontender, nondistended, no masses or hepatosplenomeagly. EXTREMITIES: no edema. pulses 2+/4 in bilateral dorsalis pedis and radial arteries NEUROLOGICAL EXAMINATION: no gross focal deficits appreciated PSYCHIATRIC EXAMINATION: appropriate mood LABORATORY DATA: Please see below. IMAGING: EGD performed by Dr. Estes on 12/14/2018 showed non-bleeding esophageal varicies and no active GI bleed. PROGNOSIS: Good ACTIVITY: As tolerated. DIET: As tolerated. DISPOSITION: 01 Home, Self-Care. DISCHARGE INSTRUCTIONS: 1. Call your PCP or return to ED if you have recurrent bloody vomit or stools. 2. Follow up with Dr. Estes in 3 weeks. 3. Follow up with PCP in 7-10 days. 4. Continue your regular home medications / remain compliant with treatment plan and medications 5. Return to the ER if you experience any problems ITEMS TO FOLLOWUP ON ON OUTPATIENT: 1. Anemia 2. Esophageal varices. DISCHARGE CONDITION: Stable. TIME SPENT ON DISCHARGE: Greater than 35 minutes. Vital Signs/I&Os Vital Signs Date Time Temp Pulse Resp B/P (MAP) Pulse Ox O2 Delivery O2 Flow Rate FiO2 12/15/18 08:00 96.8 94 18 170/90 (116) 96 12/13/18 13:15 Room Air I&O- Last 24 Hours up to 6 AM 12/15/18 06:00 Intake Total 2595.0 ml Output Total 1550 ml Balance 1045.0 ml Laboratory Data Labs 24H Laboratory Tests 2 12/14/18 17:09: Bedside Glucose (Misc Panel) 122H 12/14/18 19:53: Bedside Glucose (Misc Panel) 174H 12/15/18 05:43: Nucleated Red Blood Cells % (auto) 0.0, Immature Platelet Fraction 2.6, Anion Gap 9, Glomerular Filtration Rate > 60.0, Blood Urea Nitrogen 20#H, Creatinine 0.43L, Sodium Level 142, Potassium Level 3.0L, Chloride Level 114H, Carbon Dioxide Level 19L, Calcium Level 7.2L CBC/BMP Laboratory Tests 12/14/18 18:05 12/15/18 05:43 Red Blood Count 2.90 L, Mean Corpuscular Volume 91.4, Mean Corpuscular Hemoglobin 30.7, Mean Corpuscular Hemoglobin Concent 33.6, Red Cell Distribution Width 14.8 H, Calcium Level 7.2 L FSBS Laboratory Tests Test 12/14/18 17:09 12/14/18 19:53 Range/Units Bedside Glucose (Misc Panel) 122 174 83-110 MG/DL Discharge Medications Scheduled Benazepril HCl (Benazepril HCl) 40 Mg Tablet, 40 MG PO DAILY, (Reported) Calcium/Magnesium/Zinc (Upydlap-Chfpjxfhn-Trmf Tablet) 1 Each Tablet, 1 TAB PO DAILY, (Reported) Duloxetine Hcl (Duloxetine HCl) 20 Mg Capsule.dr, 40 MG PO DAILY, (Reported) Empagliflozin (Jardiance) 10 Mg Tablet, 10 MG PO DAILY, (Reported) Gabapentin (Gabapentin) 600 Mg Tablet, 600 MG PO BID, (Reported) Glipizide (Glipizide) 5 Mg Tab, 5 MG PO BIDWM, (Reported) Metformin HCl (Metformin HCl ER) 750 Mg Tab, 1,500 MG PO QPM, (Reported) WITH DINNER Pramipexole Di-HCl (Pramipexole Dihydrochloride) 0.75 Mg Tablet, 0.75 MG PO QPM, (Reported) TAKES AT 1800 Pramipexole Di-HCl (Pramipexole Dihydrochloride) 0.75 Mg Tablet, 1.5 MG PO QHS, (Reported) Pravastatin Sodium (Pravastatin Sodium) 10 Mg Tab, 10 MG PO DAILY, (Reported) Scheduled PRN Acetaminophen (Acetaminophen ER) 650 Mg Tablet.er, 650 MG PO Q8H PRN for PAIN, (Reported) Allergies Coded Allergies: codeine (Verified Adverse Reaction, Mild, N/V , HALLUCINATIONS, 12/13/18) GME ATTESTATION GME ATTESTATION My faculty preceptor for this patient encounter was physically present during the encounter and was fully available. All aspects of the patient interview, examination, medical decision making process, and medical care plan development were reviewed and approved by the faculty preceptor. The faculty preceptor is aware and concurs with the plan as stated in the body of this note and will attest to such by his/her cosignature. ATTENDING NOTE I, Joie Silva, have independently examined this patient and performed my own physical exam, as well as reviewed the documentation and edited where necessary. I have discussed in detail with the resident / student the findings and plan of treatment as documented by the resident / student and edited their note. I agree with their findings and treatment plan and have edited their documentation. I will continue to follow the patient during this hospital stay. Time spent on discharge: - 36 minutes RALPH AWAN PGY-1 Dec 15, 2018 16:10 JOIE SILVA MD Dec 15, 2018 17:30
== END 2018-12-15 11:00 | disposition home or self-care (01) | DRG 378 ==
LOC: M ED 08:54 → M ED INP 11:15 → M PCU 15:50
PROVIDERS: ADMIT Internal Medicine; ATTEND Internal Medicine
PROC: 0DJ08ZZ Inspection of Upper Intestinal Tract, Via Natural or Artificial Opening Endoscopic (ICD-10-PCS; 2018-12-13)
PROC: 30233N1 Transfusion of Nonautologous Red Blood Cells into Peripheral Vein, Percutaneous Approach (ICD-10-PCS; principal; 2018-12-13 13:30)
DX: K92.1 Melena (principal); D62 Acute posthemorrhagic anemia; E87.2 Acidosis; I85.00 Esophageal varices without bleeding; E11.9 Type 2 diabetes mellitus without complications; E78.5 Hyperlipidemia, unspecified; G25.81 Restless legs syndrome; F39 Unspecified mood [affective] disorder; I10 Essential (primary) hypertension; Z79.899 Other long term (current) drug therapy; Z88.5 Allergy status to narcotic agent; M19.90 Unspecified osteoarthritis, unspecified site; Z96.651 Presence of right artificial knee joint

== ENCOUNTER → 2018-12-22 | Outpatient (REF) | payer MEDICARE ==
[~2018-12-22] MED LIST changes: +ACE65ERTAB PO; +BENA40TA7 PO; +CALCTAB17 PO; +DULO1CAP4 PO; +GABA600T4 PO; +JARD1TAB PO; +PRAM0.754 PO
== END ==
LOC: M SFHCPLAZ 17:03
PROVIDERS: ATTEND Internal Medicine
DX: R30.0 Dysuria (principal)

== ENCOUNTER → 2018-12-23 | Outpatient (REF) | payer MEDICARE ==
[2018-12-23 10:22] LABS: HEMATOCRIT 28.8 % (36.0-47.0); HEMOGLOBIN 9.4 g/dl (12.0-15.5); MEAN CORPUSCULAR HEMOGLOBIN 29.3 pg (27.0-33.0); MEAN CORPUSCULAR HGB CONC 32.6 g/dl (32.0-36.5); MEAN CORPUSCULAR VOLUME 89.7 fl (80.0-96.0); PLATELET COUNT, AUTOMATED 201 10^3/uL (150-450); RED BLOOD COUNT 3.21 10^6/uL (4.00-5.40); WHITE BLOOD COUNT 7.7 10^3/uL (4.0-10.0)
[2018-12-23 10:37] LABS: ALBUMIN 2.9 GM/DL (3.2-5.2); ALT/SGPT 52 U/L (12-78); BILIRUBIN,TOTAL 0.7 MG/DL (0.2-1.0); BLOOD UREA NITROGEN 12 MG/DL (7-18); CARBON DIOXIDE LEVEL 28 MEQ/L (21-32); CHLORIDE LEVEL 102 MEQ/L (98-107); CREATININE FOR GFR 0.59 MG/DL (0.55-1.30); GLOMERULAR FILTRATION RATE > 60.0 (>39); GLUCOSE, FASTING 230 MG/DL (70-100); POTASSIUM SERUM 3.6 MEQ/L (3.5-5.1); SODIUM LEVEL 137 MEQ/L (136-145)
== END ==
LOC: M SFHCPLAZ 08:16
PROVIDERS: ATTEND Internal Medicine
DX: I10 Essential (primary) hypertension (principal); Z87.19 Personal history of other diseases of the digestive system; R30.0 Dysuria

== ENCOUNTER → 2018-12-23 | Outpatient (REF) | payer MEDICARE ==
[2018-12-23 13:49] LABS: APPEARANCE, URINE CLEAR (CLEAR); BACTERIA, URINE AUTO NEGATIVE (NEGATIVE); BILIRUBIN, URINE AUTO NEGATIVE (NEGATIVE); BLOOD, URINE BLOOD NEGATIVE (NEGATIVE); COLOR, URINE YELLOW (YELLOW); GLUCOSE, URINE (UA) AUTO 1+ mg/dL (NEGATIVE); KETONE, URINE AUTO NEGATIVE (NEGATIVE); LEUKOCYTE ESTERASE, URINE AUTO NEGATIVE (NEGATIVE); NITRITE, URINE AUTO NEGATIVE (NEGATIVE); PROTEIN, URINE AUTO NEGATIVE (NEGATIVE); RBC, URINE AUTO 1 /HPF (0-3); SPECIFIC GRAVITY URINE AUTO 1.008 (1.002-1.035); SQUAMOUS EPITHELIAL CELL UR AU 0 /HPF (0-6); UROBILINOGEN, URINE AUTO 0.2 mg/dL (0.0-2.0); WBC, URINE AUTO 0 /HPF (0-3)
== END ==
LOC: M SFHCPLAZ 13:01
PROVIDERS: ATTEND Internal Medicine
DX: R30.0 Dysuria (principal)

== ENCOUNTER → 2018-12-30 | Outpatient (CLI) | payer MEDICARE ==
[2018-12-30 08:56] LABS: FERRITIN 13 NG/ML (8-252); IRON (FE) 18 UG/DL (50-170); PERCENT SATURATION 4.6 % (13.2-45.0); TOTAL IRON BINDING CAPACITY 389 UG/DL (250-450)
[2018-12-30 09:56] LABS: HEPATITIS B SURFACE ANTIGEN NEGATIVE (NEGATIVE)
[2018-12-30 10:23] LABS: HEPATITIS C VIRUS ABY INDEX 0.1 INDEX (<0.8)
[2018-12-30 10:24] LABS: HEPATITIS B CORE ANTIBODY IGM NEGATIVE (NEGATIVE)
[2018-12-30 10:26] LABS: HEPATITIS A ANTIBODY IGM NEGATIVE (NEGATIVE)
[2019-01-04 14:07] LABS: ANTI-MITOCHONDRIAL ANTIBODY <20.0 Units (0.0-20.0); ANTINUCLEAR ANTIBODIES DIRECT Negative (Negative); LIVER-KIDNEY MICROSOMAL ABY <20.1 Units (0.0-20.0)
== END ==
LOC: M LAB 07:10
PROVIDERS: ATTEND Internal Medicine Gastroenterology
DX: I85.00 Esophageal varices without bleeding (principal); K92.0 Hematemesis; K92.2 Gastrointestinal hemorrhage, unspecified

== ENCOUNTER → 2018-12-31 | Outpatient (CLI) | payer MEDICARE ==
[~2018-12-31] MED LIST changes: +GASTROGRAFIN SOLUTION 30ML (Q9963) As Ordered ONE; +ISOVUE-370 76% 100ML VIAL (Q9967) As Ordered ONE
--- NOTE | 2018-12-31 14:46 | REP ---
REASON FOR EXAM: History of gastrointestinal hemorrhage and esophageal varices. COMPARISON: 08/03/2012, which is the only prior. CONTRAST: 100 mL Isovue 370. There is a micronodular surface to the hepatic edge, which has developed since the last exam. There is a small amount of free fluid seen along the hepatic edge anterior and laterally. There are no enhancing hepatic lesions. The gallbladder, spleen, pancreas, adrenal glands, and kidneys are within normal limits. The abdominal aorta and para-aortic regions are within normal limits for the patient's age. There is recanalization of the umbilical vein. There is a tiny amount of fluid trapped in the leads of the small bowel mesentery and there is a tiny amount of fluid in the paracolic gutters. All of this represents a change from the prior exam. Multiple portions of the colon are collapsed. There is no evidence of intestinal obstruction or intra-abdominal mass or adenopathy. Some of the small bowel loops may have mildly thickened grigsby. This represents a change from the prior exam. CT PELVIS: There is a small amount of free pelvic fluid. There is sigmoid colon diverticulosis. There is no pelvic sidewall adenopathy. Bone window technique throughout the exam shows chronic spinal degenerative changes. The lung bases show mild cylindrical bronchiectasis. IMPRESSION: 1. Micronodular surface to the hepatic edge in conjunction with recanalization of the umbilical vein and a subtle degree of ascites are consistent with cirrhosis and portal hypertension. This needs to be correlated clinically. 2. A few small bowel loops having mildly thickened grigsby, the etiology of which is uncertain. 3. Sigmoid colon diverticulosis. 4. Other findings as described above. ? Electronically Signed by Pete Hollins DO 12/31/2018 03:46 P
== END ==
LOC: M RAD 10:59
PROVIDERS: ATTEND Internal Medicine Gastroenterology
DX: I85.00 Esophageal varices without bleeding (principal); K92.0 Hematemesis; K92.2 Gastrointestinal hemorrhage, unspecified; K57.90 Diverticulosis of intestine, part unspecified, without perforation or abscess without bleeding
CPT/HCPCS: 74177; Q9963; Q9967

== ENCOUNTER → 2019-01-19 | Outpatient (POV) | payer MEDICARE ==
[~2019-01-19] VITALS: Ht 152.4 cm; Wt 61.4 kg
[~2019-01-19] MED LIST changes: -GASTROGRAFIN SOLUTION 30ML (Q9963) As Ordered ONE; -ISOVUE-370 76% 100ML VIAL (Q9967) As Ordered ONE
[2019-01-19 08:45] VITALS: BP 172/74
--- NOTE | 2019-01-19 15:11 | IRCOV ---
[facility] IR Consult Office Visit IR Consult Office Visit DATE: Jan 19, 2019 REASON FOR CONSULTATION/CHIEF COMPLAINT: Hematemesis. Varices. HISTORY OF PRESENT ILLNESS: 78-year-old female with history of fatty liver, diabetes, hypertension, hypercholesterolemia and spinal stenosis presented in November to the hospital with hematemesis and melena. This required blood transfusions, inpatient hospital stay and patient underwent endoscopy which demonstrated esophageal varices. No prior history of hematemesis or melena. No prior history of anemia, jaundice, abdominal distention or encephalopathy. No history of hepatitis or alcohol abuse. ALLERGIES: Please see below. HOME MEDICATIONS: Please see below. PAST MEDICAL HISTORY: 1. Fatty liver. 2. Diabetes. 3. Hypertension. 4. Osteoarthritis. 5. Spinal stenosis. 6. Colonic polyps. PAST SURGICAL HISTORY: 1. Bilateral cataract surgery. 2. Right total knee replacement. 3. Laminectomy. FAMILY HISTORY: Sister with cirrhosis of the liver. Family history of fatty liver. SOCIAL HISTORY: Denies alcohol, cigarette smoking or drugs. Lives with . Independent with activities of daily living. REVIEW OF SYSTEMS: Otherwise negative. PHYSICAL EXAMINATION: VITAL SIGNS: Please see below. GENERAL APPEARANCE: Appears well. No acute distress. HEENT: No scleral icterus. RESPIRATORY: Symmetric breath sounds bilaterally. CARDIOVASCULAR: Normal rate. ABDOMEN: Non-distended. Soft nontender. EXTREMITIES: Moving all 4 extremities. Walks unaided. NEUROLOGICAL: Alert and oriented. Normal gait. PSYCHIATRIC: Appropriate to circumstance. LABORATORY DATA: 12/23/2018 Hemoglobin 9.4 hematocrit 28.8 WBC 7.7 platelets 201 sodium 137 potassium 3.6 creatinine 0.59 total bilirubin 0.5 AST 38 ALT 39 ALP 78 INR 1.3. Fibrosis score not available. Imaging: I personally reviewed the most recent recent CT scan of the abdomen and pelvis performed with intravenous contrast. This demonstrates nodular appearance to the liver with large recanalized periumbilical vein and esophageal varices. No ascites. ASSESSMENT/PLAN: 78-year-old female with history of fatty liver presents with first episode of variceal bleeding and findings of portal hypertension on CT. This indicates cirrhosis and is a new diagnosis for the patient and patient is to see GI on . Patient presented to me to discuss other options such as TIPS. We discussed the TIPS procedure and how it reduces risk of recurrent bleeds and hospital admissions from varices. We discussed the risks and benefits of the procedure. I encouraged patient to follow-up with GI for her first clinic appointment this and after that, if she feels this might be something she would like to pursue, I 'd be happy to work her up for the procedure. I spent 30 minutes in consultation with the patient. Thank you for this referral. Allergies Coded Allergies: codeine (Verified Adverse Reaction, Mild, N/V , HALLUCINATIONS, 12/13/18) Home Medications Scheduled Benazepril HCl (Benazepril HCl), 40 MG PO DAILY, (Reported) Calcium/Magnesium/Zinc (Wnfrxpp-Jwubncxcu-Jwor Tablet), 1 TAB PO DAILY, (Reported) Duloxetine Hcl (Duloxetine HCl), 40 MG PO DAILY, (Reported) Empagliflozin (Jardiance), 10 MG PO DAILY, (Reported) Gabapentin (Gabapentin), 600 MG PO BID, (Reported) Glipizide (Glipizide), 5 MG PO BIDWM, (Reported) Metformin HCl (Metformin HCl ER), 1,500 MG PO QPM, (Reported) Pramipexole Di-HCl (Pramipexole Dihydrochloride), 0.75 MG PO QPM, (Reported) Pramipexole Di-HCl (Pramipexole Dihydrochloride), 1.5 MG PO QHS, (Reported) Pravastatin Sodium (Pravastatin Sodium), 10 MG PO DAILY, (Reported) Scheduled PRN Acetaminophen (Acetaminophen ER), 650 MG PO Q8H PRN for PAIN, (Reported) VS, I&O, 24H, Fishbone Vital Signs/I&O Vital Signs Date Time Temp Pulse Resp B/P (MAP) Pulse Ox O2 Delivery O2 Flow Rate FiO2 01/19/19 08:45 97.0 99 18 172/74 (106) 95 CALEB GUAMAN MD Jan 19, 2019 15:11
== END ==
LOC: M IRPOV 08:35
PROVIDERS: ATTEND Radiology Diagnostic Radiology
DX: I85.01 Esophageal varices with bleeding (principal); K92.0 Hematemesis; I10 Essential (primary) hypertension; E11.9 Type 2 diabetes mellitus without complications; E78.00 Pure hypercholesterolemia, unspecified; K76.0 Fatty (change of) liver, not elsewhere classified; M48.00 Spinal stenosis, site unspecified; M15.0 Primary generalized (osteo)arthritis; Z88.5 Allergy status to narcotic agent; Z79.899 Other long term (current) drug therapy; Z96.1 Presence of intraocular lens; Z98.41 Cataract extraction status, right eye; Z98.42 Cataract extraction status, left eye; Z96.641 Presence of right artificial hip joint; Z86.010 Personal history of colon polyps

== ENCOUNTER → 2019-02-05 | Outpatient (REF) | payer MEDICARE ==
[~2019-02-05] MED LIST changes: -METF750T PO; +METF750T36 PO
[2019-02-05 10:12] LABS: HEMATOCRIT 32.2 % (36.0-47.0); HEMOGLOBIN 10.2 g/dl (12.0-15.5); MEAN CORPUSCULAR HEMOGLOBIN 27.6 pg (27.0-33.0); MEAN CORPUSCULAR HGB CONC 31.7 g/dl (32.0-36.5); PLATELET COUNT, AUTOMATED 161 10^3/uL (150-450); WHITE BLOOD COUNT 6.3 10^3/uL (4.0-10.0)
[2019-02-05 10:41] LABS: HEMOGLOBIN A1c 6.7 %
[2019-02-05 10:48] LABS: ALBUMIN 3.2 GM/DL (3.2-5.2); ALT/SGPT 42 U/L (12-78); BILIRUBIN,TOTAL 0.8 MG/DL (0.2-1.0); BLOOD UREA NITROGEN 9 MG/DL (7-18); CALCIUM LEVEL 8.4 MG/DL (8.8-10.2); CARBON DIOXIDE LEVEL 26 MEQ/L (21-32); CHLORIDE LEVEL 105 MEQ/L (98-107); CHOLESTEROL LEVEL 160 MG/DL (<200); CHOLESTEROL RISK RATIO 2.388 (<5); CREATININE FOR GFR 0.53 MG/DL (0.55-1.30); GLOMERULAR FILTRATION RATE > 60.0 (>39); GLUCOSE, FASTING 129 MG/DL (70-100); HDL CHOLESTEROL 67 MG/DL (>40); LDL CHOLESTEROL 84 MG/DL (<100); NON-HDL-C 93 MG/DL; POTASSIUM SERUM 4.5 MEQ/L (3.5-5.1); SODIUM LEVEL 141 MEQ/L (136-145); TOTAL PROTEIN 6.4 GM/DL (6.4-8.2); TRIGLYCERIDES LEVEL 47 MG/DL (<150)
[2019-02-05 10:58] LABS: CREATININE, URINE 72.3 MG/DL; MALB URINE SIEMENS 14.1 MG/L; MAU/CREAT RATIO 19.5 MCG/MG (0.0-30.0)
== END ==
LOC: M SFHCPLAZ 08:34
PROVIDERS: ATTEND Internal Medicine
DX: K74.69 Other cirrhosis of liver (principal); E11.9 Type 2 diabetes mellitus without complications; E78.00 Pure hypercholesterolemia, unspecified

== ENCOUNTER → 2019-04-11 | Outpatient (REF) | payer MEDICARE | LOC: M LAB REF 12:51 | PROVIDERS: ATTEND Physician Assistant Medical | DX: R21 Rash and other nonspecific skin eruption (principal) ==

== ENCOUNTER → 2019-06-07 | Outpatient (CLI) | payer MEDICARE ==
[~2019-06-07] MED LIST changes: +BENA40TA5 PO; -BENA40TA7 PO
[2019-06-07 11:09] LABS: HEMATOCRIT 41.8 % (36.0-47.0); HEMOGLOBIN 13.5 g/dl (12.0-15.5); MEAN CORPUSCULAR HEMOGLOBIN 29.7 pg (27.0-33.0); MEAN CORPUSCULAR HGB CONC 32.3 g/dl (32.0-36.5); MEAN CORPUSCULAR VOLUME 92.1 fl (80.0-96.0); PLATELET COUNT, AUTOMATED 128 10^3/uL (150-450); RED BLOOD COUNT 4.54 10^6/uL (4.00-5.40); WHITE BLOOD COUNT 6.5 10^3/uL (4.0-10.0)
[2019-06-07 11:33] LABS: HEMOGLOBIN A1c 9.3 %
[2019-06-07 11:43] LABS: ALBUMIN 3.5 GM/DL (3.2-5.2); ALT/SGPT 50 U/L (12-78); BILIRUBIN,TOTAL 1.1 MG/DL (0.2-1.0); BLOOD UREA NITROGEN 11 MG/DL (7-18); CALCIUM LEVEL 8.5 MG/DL (8.8-10.2); CARBON DIOXIDE LEVEL 29 MEQ/L (21-32); CHLORIDE LEVEL 104 MEQ/L (98-107); GLOMERULAR FILTRATION RATE > 60.0 (>39); GLUCOSE, FASTING 176 MG/DL (70-100); MAGNESIUM LEVEL 1.7 MG/DL (1.8-2.4); POTASSIUM SERUM 4.2 MEQ/L (3.5-5.1); SODIUM LEVEL 140 MEQ/L (136-145); TOTAL PROTEIN 6.9 GM/DL (6.4-8.2)
== END ==
LOC: M PLALAB 08:09
PROVIDERS: ATTEND Internal Medicine
DX: K74.69 Other cirrhosis of liver (principal); I10 Essential (primary) hypertension; E11.9 Type 2 diabetes mellitus without complications

== ENCOUNTER → 2019-08-06 | Outpatient (CLI) | payer MEDICARE ==
[2019-08-06 07:48] LABS: ALBUMIN 3.3 GM/DL (3.2-5.2); ALT/SGPT 43 U/L (12-78); BILIRUBIN,DIRECT 0.3 MG/DL (0.0-0.2); BILIRUBIN,TOTAL 1.1 MG/DL (0.2-1.0); TOTAL PROTEIN 6.7 GM/DL (6.4-8.2)
[2019-08-06 09:22] LABS: HEPATITIS B SURFACE ANTIBODY NEGATIVE (POSITIVE)
[2019-08-10 08:12] LABS: ALPHA 1 ANTITRYPSIN 124 mg/dL (101-187); ANTI-SMOOTH MUSCLE ANTIBODY 10 Units (0-19); CERULOPLASMIN 24.3 mg/dL (19.0-39.0); HEPATITIS A IgG TOTAL Negative (Negative)
== END ==
LOC: M LAB 06:37
PROVIDERS: ATTEND Internal Medicine Gastroenterology
DX: K74.60 Unspecified cirrhosis of liver (principal); K76.0 Fatty (change of) liver, not elsewhere classified

== ENCOUNTER → 2019-09-17 | Outpatient (REF) | payer MEDICARE ==
[2019-09-17 10:04] LABS: HEMATOCRIT 42.1 % (36.0-47.0); MEAN CORPUSCULAR HEMOGLOBIN 31.6 pg (27.0-33.0); MEAN CORPUSCULAR HGB CONC 33.3 g/dl (32.0-36.5); PLATELET COUNT, AUTOMATED 151 10^3/uL (150-450); RED BLOOD COUNT 4.43 10^6/uL (4.00-5.40); WHITE BLOOD COUNT 7.8 10^3/uL (4.0-10.0)
[2019-09-17 10:20] LABS: ALBUMIN 3.4 GM/DL (3.2-5.2); ALT/SGPT 44 U/L (12-78); BILIRUBIN,TOTAL 1.6 MG/DL (0.2-1.0); BLOOD UREA NITROGEN 14 MG/DL (7-18); CALCIUM LEVEL 8.9 MG/DL (8.8-10.2); CARBON DIOXIDE LEVEL 28 MEQ/L (21-32); CHLORIDE LEVEL 104 MEQ/L (98-107); CHOLESTEROL LEVEL 181 MG/DL (<200); CHOLESTEROL RISK RATIO 2.828 (<5); CREATININE FOR GFR 0.55 MG/DL (0.55-1.30); GLOMERULAR FILTRATION RATE > 60.0 (>39); GLUCOSE, FASTING 129 MG/DL (70-100); HDL CHOLESTEROL 64 MG/DL (>40); LDL CHOLESTEROL 104 MG/DL (<100); NON-HDL-C 117 MG/DL; POTASSIUM SERUM 4.6 MEQ/L (3.5-5.1); SODIUM LEVEL 139 MEQ/L (136-145); TOTAL PROTEIN 7.1 GM/DL (6.4-8.2); TRIGLYCERIDES LEVEL 63 MG/DL (<150)
[2019-09-17 10:27] LABS: EOSINOPHILS 2 % (0-3); LYMPHOCYTES 51 % (16-44); MONOCYTES 2 % (0-5); NEUTROPHILS 45 % (28-66)
[2019-09-17 10:28] LABS: PLATELET ESTIMATE NORMAL (NORMAL)
[2019-09-17 10:34] LABS: MALB URINE SIEMENS 8.7 MG/L; MAU/CREAT RATIO 7.1 MCG/MG (0.0-30.0)
[2019-09-17 11:01] LABS: HEMOGLOBIN A1c 8.2 %
== END ==
LOC: M PLALAB 07:53
PROVIDERS: ATTEND Internal Medicine
DX: K74.69 Other cirrhosis of liver (principal); I10 Essential (primary) hypertension; E11.9 Type 2 diabetes mellitus without complications; E78.00 Pure hypercholesterolemia, unspecified

== ENCOUNTER → 2019-10-22 | Outpatient (CLI) | payer MEDICARE ==
--- NOTE | 2019-10-22 10:40 | REP ---
REASON FOR EXAM: Elevated LFTs and history of liver disease. Multiple ultrasonographic images of the liver show a slightly heterogenous echo pattern. There is no intrahepatic or extrahepatic ductal dilatation. The common bile duct measures 3 mm. There is no ultrasonographic evidence of a mass. The gallbladder is within normal limits showing no choleliths, pericholecystic edema, or gallbladder wall thickening. The imaged portion of the pancreas and right kidney are within normal limits. There is no free fluid. IMPRESSION: Heterogeneous hepatic echo pattern suggesting geographic fatty infiltration.
== END ==
LOC: M WHC 08:15
PROVIDERS: ATTEND Internal Medicine Gastroenterology
DX: K74.60 Unspecified cirrhosis of liver (principal); K76.0 Fatty (change of) liver, not elsewhere classified; K72.90 Hepatic failure, unspecified without coma

== ENCOUNTER → 2019-10-27 | Outpatient (CLI) | payer MEDICARE ==
[2019-10-27 17:24] LABS: ALBUMIN 3.4 GM/DL (3.2-5.2); BILIRUBIN,DIRECT 0.3 MG/DL (0.0-0.2)
== END ==
LOC: M PLALAB 15:34
PROVIDERS: ATTEND Internal Medicine Gastroenterology
DX: K74.60 Unspecified cirrhosis of liver (principal); K76.0 Fatty (change of) liver, not elsewhere classified; K72.90 Hepatic failure, unspecified without coma

== ENCOUNTER → 2020-01-28 | Outpatient (CLI) | payer MEDICARE ==
[2020-01-28 13:58] LABS: BASO % 0.6 % (0.0-1.0); EOS # 0.1 10^3/uL (0.0-0.5); EOS % 1.4 % (0.0-3.0); HEMOGLOBIN 12.3 g/dl (12.0-15.5); LYMPH # 3.3 10^3/uL (1.5-5.0); MEAN CORPUSCULAR HEMOGLOBIN 32.6 pg (27.0-33.0); MEAN CORPUSCULAR HGB CONC 34.2 g/dl (32.0-36.5); MEAN CORPUSCULAR VOLUME 95.5 fl (80.0-96.0); MONO # 0.5 10^3/uL (0.0-0.8); MONO % 7.8 % (0.0-5.0); NEUTROPHILS # 2.7 10^3/uL (1.5-8.5); PLATELET COUNT, AUTOMATED 110 10^3/uL (150-450); RED BLOOD COUNT 3.77 10^6/uL (4.00-5.40); WHITE BLOOD COUNT 6.7 10^3/uL (4.0-10.0)
[2020-01-28 14:27] LABS: MALB URINE SIEMENS 10.9 MG/L; MAU/CREAT RATIO 7.1 MCG/MG (0.0-30.0)
[2020-01-28 15:12] LABS: HEMOGLOBIN A1c 9.6 %
[2020-01-28 15:37] LABS: ALBUMIN 3.4 GM/DL (3.2-5.2); ALT/SGPT 54 U/L (12-78); BLOOD UREA NITROGEN 17 MG/DL (7-18); CALCIUM LEVEL 8.8 MG/DL (8.8-10.2); CARBON DIOXIDE LEVEL 24 MEQ/L (21-32); CHLORIDE LEVEL 107 MEQ/L (98-107); CHOLESTEROL LEVEL 178 MG/DL (<200); CREATININE FOR GFR 0.54 MG/DL (0.55-1.30); GLOMERULAR FILTRATION RATE > 60.0 (>39); GLUCOSE, FASTING 151 MG/DL (70-100); HDL CHOLESTEROL 62 MG/DL (>40); LDL CHOLESTEROL 102 MG/DL (<100); MAGNESIUM LEVEL 1.8 MG/DL (1.8-2.4); NON-HDL-C 116 MG/DL; POTASSIUM SERUM 4.2 MEQ/L (3.5-5.1); SODIUM LEVEL 139 MEQ/L (136-145); TOTAL PROTEIN 6.7 GM/DL (6.4-8.2); TRIGLYCERIDES LEVEL 68 MG/DL (<150)
== END ==
LOC: M PLALAB 07:54
PROVIDERS: ATTEND Internal Medicine
DX: E78.00 Pure hypercholesterolemia, unspecified (principal); K74.69 Other cirrhosis of liver; I10 Essential (primary) hypertension; E11.9 Type 2 diabetes mellitus without complications

== ENCOUNTER 2020-04-04 10:56 | Emergency (ER) | payer MEDICARE ==
[~2020-04-04] VITALS: Ht 149.9 cm; Wt 65.7 kg
--- NOTE | 2020-04-04 11:29 | REP ---
INDICATION: CHEST PAIN. COMPARISON: 12/13/2018. TECHNIQUE: SINGLE PORTABLE AP VIEW OF THE CHEST WAS PERFORMED. FINDINGS: There is mild bibasilar atelectatic change. There is no evidence of acute infiltrate or pulmonary edema. The heart is normal in size. The mediastinal silhouette is unremarkable and unchanged. The visualized osseous structures are unremarkable. IMPRESSION: Mild bibasilar atelectatic change with no acute infiltrate. <Electronically signed by Jamari Lambert > 04/04/20 [id number]
[2020-04-04 12:03] LABS: BASO # 0.1 10^3/uL (0.0-0.2); BASO % 0.7 % (0.0-1.0); EOS # 0.1 10^3/uL (0.0-0.5); EOS % 0.7 % (0.0-3.0); HEMATOCRIT 36.8 % (36.0-47.0); HEMOGLOBIN 12.1 g/dl (12.0-15.5); LYMPH # 3.9 10^3/uL (1.5-5.0); LYMPH % 47.8 % (24.0-44.0); MEAN CORPUSCULAR HEMOGLOBIN 31.4 pg (27.0-33.0); MEAN CORPUSCULAR HGB CONC 32.9 g/dl (32.0-36.5); MEAN CORPUSCULAR VOLUME 95.6 fl (80.0-96.0); MONO # 0.6 10^3/uL (0.0-0.8); MONO % 7.2 % (0.0-5.0); NEUTROPHILS # 3.6 10^3/uL (1.5-8.5); NEUTROPHILS % 43.4 % (36.0-66.0); PLATELET COUNT, AUTOMATED 150 10^3/uL (150-450); RED BLOOD COUNT 3.85 10^6/uL (4.00-5.40); WHITE BLOOD COUNT 8.2 10^3/uL (4.0-10.0)
[2020-04-04 12:13] LABS: INR 1.12; PROTHROMBIN TIME 14.7 SECONDS (12.5-14.3)
[2020-04-04 12:16] LABS: PARTIAL THROMBOPLASTIN TIME 35.2 SECONDS (24.2-38.5)
[2020-04-04] MEDS ORDERED: NS 500 ML IV ONE (12:30)
[2020-04-04 12:32] LABS: ALBUMIN 3.3 GM/DL (3.2-5.2); ALT/SGPT 41 U/L (12-78); BILIRUBIN,DIRECT 0.3 MG/DL (0.0-0.2); BILIRUBIN,TOTAL 1.1 MG/DL (0.2-1.0); BLOOD UREA NITROGEN 29 MG/DL (7-18); CALCIUM LEVEL 8.6 MG/DL (8.8-10.2); CARBON DIOXIDE LEVEL 25 MEQ/L (21-32); CHLORIDE LEVEL 104 MEQ/L (98-107); CK-MB VALUE MASS 1.3 NG/ML (<3.6); CPK CREATINE PHOSPHOKINASE 71 U/L (26-192); CREATININE FOR GFR 0.83 MG/DL (0.55-1.30); FREE T4 0.99 NG/DL (0.76-1.46); GLOMERULAR FILTRATION RATE > 60.0 (>39); GLUCOSE, FASTING 255 MG/DL (70-100); LIPASE 172 U/L (73-393); MB/CK RELATIVE INDEX 1.83 (< OR =4); NT-PRO BNP 75 PG/ML (<450); POTASSIUM SERUM 4.6 MEQ/L (3.5-5.1); SODIUM LEVEL 134 MEQ/L (136-145); THYROID STIMULATING HORMONE 0.775 uIU/ML (0.358-3.740); TOTAL PROTEIN 6.7 GM/DL (6.4-8.2); TROPONIN I < 0.02 NG/ML (< 0.10)
[2020-04-04] MEDS ORDERED: LACT10SO3 PO (12:51)
[2020-04-04] MEDS ORDERED: FURO40TA2 PO (12:51)
[2020-04-04] MEDS ORDERED: SPIR50TA4 PO (12:51)
[2020-04-04 14:15] VITALS: BP 116/63
--- NOTE | 2020-04-04 21:11 | ECGEPIP ---
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
== END 2020-04-04 14:21 | disposition home or self-care (01) ==
LOC: M ED 10:56
DX: I95.9 Hypotension, unspecified (principal); R53.1 Weakness; E11.9 Type 2 diabetes mellitus without complications; I10 Essential (primary) hypertension; J45.909 Unspecified asthma, uncomplicated; E78.5 Hyperlipidemia, unspecified; K57.92 Diverticulitis of intestine, part unspecified, without perforation or abscess without bleeding; Z88.5 Allergy status to narcotic agent; Z79.899 Other long term (current) drug therapy; Z79.84 Long term (current) use of oral hypoglycemic drugs

== ENCOUNTER → 2020-05-01 | Outpatient (REF) | payer MEDICARE ==
[~2020-05-01] MED LIST changes: +FURO40TA2 PO; +LACT10SO3 PO; +SPIR50TA4 PO
[2020-05-01 18:50] LABS: HEMOGLOBIN A1c 10.3 %
== END ==
LOC: M SFHCPLAZ 15:15
PROVIDERS: ATTEND Internal Medicine
DX: I10 Essential (primary) hypertension (principal); E11.9 Type 2 diabetes mellitus without complications
CPT/HCPCS: 36415; 83036; 83735; G0463

== ENCOUNTER → 2020-05-03 | Outpatient (CLI) | payer MEDICARE ==
--- NOTE | 2020-05-03 09:28 | REP ---
INDICATION: CIRRHOSIS OF LIVER. COMPARISON: Comparison sonography October 22, 2019.. TECHNIQUE: Right upper quadrant sonography is performed. FINDINGS: Scanning through the right upper quadrant of the abdomen demonstrates a normal sized and walled gallbladder without evidence of stone or polyp. Common bile duct is normal measuring 0.4 cm in greatest diameter. Coarse liver texture is again seen consistent with history of cirrhosis. There is no evidence of ascites or focal liver lesion. Limited views of pancreas show no abnormality. No right renal abnormality is noted. The right kidney measures 9.0 x 4.6 x 4.6 cm. IMPRESSION: Coarse liver texture consistent with history of cirrhosis. There is no evidence of ascites. Normal gallbladder and CBD. <Electronically signed by Dio Kapadia > 05/03/20 [id number]
[2020-05-03 09:32] LABS: ALBUMIN 3.5 GM/DL (3.2-5.2); ALT/SGPT 44 U/L (12-78); BILIRUBIN,DIRECT 0.3 MG/DL (0.0-0.2); BILIRUBIN,TOTAL 1.3 MG/DL (0.2-1.0); BLOOD UREA NITROGEN 18 MG/DL (7-18); CREATININE FOR GFR 0.87 MG/DL (0.55-1.30); GLOMERULAR FILTRATION RATE > 60.0 (>39); TOTAL PROTEIN 7.1 GM/DL (6.4-8.2)
== END ==
LOC: M RAD 08:32
PROVIDERS: ATTEND Internal Medicine Gastroenterology
DX: K74.60 Unspecified cirrhosis of liver (principal); K76.0 Fatty (change of) liver, not elsewhere classified

== ENCOUNTER → 2020-07-27 | Outpatient (REF) | payer MEDICARE ==
[~2020-07-27] MED LIST changes: +GABA-282 PO; -GABA-843 PO
[2020-07-27 10:38] LABS: BASO # 0.1 10^3/uL (0.0-0.2); BASO % 0.7 % (0.0-1.0); EOS # 0.1 10^3/uL (0.0-0.5); EOS % 1.1 % (0.0-3.0); HEMATOCRIT 39.1 % (36.0-47.0); HEMOGLOBIN 13.3 g/dl (12.0-15.5); LYMPH # 4.5 10^3/uL (1.5-5.0); LYMPH % 50.4 % (24.0-44.0); MEAN CORPUSCULAR HEMOGLOBIN 32.6 pg (27.0-33.0); MEAN CORPUSCULAR VOLUME 95.8 fl (80.0-96.0); MONO # 0.7 10^3/uL (0.0-0.8); MONO % 8.4 % (2.0-8.0); NEUTROPHILS # 3.5 10^3/uL (1.5-8.5); NEUTROPHILS % 39.1 % (36.0-66.0); PLATELET COUNT, AUTOMATED 128 10^3/uL (150-450); RED BLOOD COUNT 4.08 10^6/uL (4.00-5.40); WHITE BLOOD COUNT 8.9 10^3/uL (4.0-10.0)
[2020-07-27 11:10] LABS: ALBUMIN 3.5 GM/DL (3.2-5.2); ALT/SGPT 35 U/L (12-78); BILIRUBIN,TOTAL 0.9 MG/DL (0.2-1.0); BLOOD UREA NITROGEN 15 MG/DL (7-18); CALCIUM LEVEL 9.4 MG/DL (8.8-10.2); CARBON DIOXIDE LEVEL 27 MEQ/L (21-32); CHLORIDE LEVEL 104 MEQ/L (98-107); CHOLESTEROL LEVEL 162 MG/DL (<200); CHOLESTEROL RISK RATIO 2.571 (<5); CREATININE FOR GFR 0.72 MG/DL (0.55-1.30); GLOMERULAR FILTRATION RATE > 60.0 (>39); GLUCOSE, FASTING 146 MG/DL (70-100); HDL CHOLESTEROL 63 MG/DL (>40); LDL CHOLESTEROL 85 MG/DL (<100); MAGNESIUM LEVEL 1.9 MG/DL (1.8-2.4); NON-HDL-C 99 MG/DL; POTASSIUM SERUM 4.3 MEQ/L (3.5-5.1); SODIUM LEVEL 138 MEQ/L (136-145); TOTAL PROTEIN 6.8 GM/DL (6.4-8.2); TRIGLYCERIDES LEVEL 70 MG/DL (<150)
[2020-07-27 11:14] LABS: MAU/CREAT RATIO 8.5 MCG/MG (0.0-30.0)
[2020-07-27 11:28] LABS: HEMOGLOBIN A1c 7.5 %
== END ==
LOC: M PLALAB 08:06
PROVIDERS: ATTEND Internal Medicine
DX: K74.69 Other cirrhosis of liver (principal); I10 Essential (primary) hypertension; E11.9 Type 2 diabetes mellitus without complications; E78.00 Pure hypercholesterolemia, unspecified

== ENCOUNTER 2020-11-09 12:32 | Emergency (ER) | payer MEDICARE ==
[~2020-11-09] VITALS: Ht 152.4 cm; Wt 67.9 kg
[2020-11-09] MEDS ORDERED: TRUL10IN SC (12:51)
[2020-11-09] MEDS ORDERED: ALEN70TA82 (12:51)
[2020-11-09] MEDS ORDERED: NADO20TA PO (12:51)
[2020-11-09 13:52] LABS: BASO # 0.1 10^3/uL (0.0-0.2); BASO % 0.6 % (0.0-1.0); EOS # 0.1 10^3/uL (0.0-0.5); EOS % 1.3 % (0.0-3.0); HEMATOCRIT 38.4 % (36.0-47.0); HEMOGLOBIN 12.9 g/dl (12.0-15.5); LYMPH # 3.5 10^3/uL (1.5-5.0); LYMPH % 44.4 % (24.0-44.0); MEAN CORPUSCULAR HEMOGLOBIN 32.1 pg (27.0-33.0); MEAN CORPUSCULAR HGB CONC 33.6 g/dl (32.0-36.5); MEAN CORPUSCULAR VOLUME 95.5 fl (80.0-96.0); MONO # 0.7 10^3/uL (0.0-0.8); MONO % 9.4 % (2.0-8.0); NEUTROPHILS # 3.4 10^3/uL (1.5-8.5); PLATELET COUNT, AUTOMATED 145 10^3/uL (150-450); RED BLOOD COUNT 4.02 10^6/uL (4.00-5.40); WHITE BLOOD COUNT 7.8 10^3/uL (4.0-10.0)
--- NOTE | 2020-11-09 14:01 | REP ---
INDICATION: weakness. COMPARISON: 04/04/2020. TECHNIQUE: Single portable AP view of the chest was performed. FINDINGS: There is no acute infiltrate or pulmonary edema. There are stable mild bibasilar fibro atelectatic changes.. The heart is not significantly enlarged. The mediastinal silhouette is unremarkable. The visualized osseous structures are intact. IMPRESSION: No acute pulmonary disease. <Electronically signed by Jamari Lambert > 11/09/20 [id number]
--- NOTE | 2020-11-09 14:11 | REP ---
INDICATION: AMS. COMPARISON: None. TECHNIQUE: Helical scanning is acquired. 5 mm axial images were reformatted. Coronal MPR images were generated. FINDINGS: Bone window settings demonstrate an intact bony calvarium. There is no evidence of skull fracture or incidental bony calvarial lesion. The visualized paranasal sinuses appear clear. No intraorbital abnormality is seen. On soft tissue window setting images; the lateral, third, and fourth ventricles are normal in size and position. Lambert-white differentiation pattern is normal above and below the tentorium. There are is no evidence of intracranial hemorrhage. No mass, edema, infarction, or midline shift is seen. No extra-axial fluid collection is appreciated. There is mild generalized volume loss. IMPRESSION: Mild diffuse atrophy. Otherwise negative. No acute intracranial abnormality.. <Electronically signed by Doi Kapadia > 11/09/20 [id number]
[2020-11-09 14:13] LABS: ALBUMIN 3.1 GM/DL (3.2-5.2); ALT/SGPT 47 U/L (12-78); BILIRUBIN,TOTAL 0.9 MG/DL (0.2-1.0); BLOOD UREA NITROGEN 19 MG/DL (7-18); CALCIUM LEVEL 8.9 MG/DL (8.8-10.2); CARBON DIOXIDE LEVEL 27 MEQ/L (21-32); CHLORIDE LEVEL 103 MEQ/L (98-107); CK-MB VALUE MASS < 1.0 NG/ML (<3.6); CPK CREATINE PHOSPHOKINASE 86 U/L (26-192); CREATININE FOR GFR 0.75 MG/DL (0.55-1.30); GLOMERULAR FILTRATION RATE > 60.0 (>39); GLUCOSE, FASTING 303 MG/DL (70-100); MB/CK RELATIVE INDEX 1.16 (< OR =4); POTASSIUM SERUM 3.8 MEQ/L (3.5-5.1); SODIUM LEVEL 137 MEQ/L (136-145); TOTAL PROTEIN 6.5 GM/DL (6.4-8.2); TROPONIN I < 0.02 NG/ML (< 0.10)
[2020-11-09 15:16] LABS: BILIRUBIN,DIRECT 0.3 MG/DL (0.0-0.2); THYROID STIMULATING HORMONE 0.683 uIU/ML (0.358-3.740)
[2020-11-09] MEDS ORDERED: CEPHALEXIN 500 MG CAP PO ONE (15:40)
[2020-11-09] MEDS ORDERED: LACT20EL PO (15:54)
[2020-11-09] MEDS ORDERED: CEPH500C PO (15:54)
[2020-11-09 16:21] VITALS: BP 141/72
--- NOTE | 2020-11-09 21:11 | ECGEPIP ---
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
== END 2020-11-09 17:18 | disposition home or self-care (01) ==
LOC: M ED 12:32
DX: N39.0 Urinary tract infection, site not specified (principal); G93.49 Other encephalopathy; E11.9 Type 2 diabetes mellitus without complications; I10 Essential (primary) hypertension; K74.60 Unspecified cirrhosis of liver; E78.5 Hyperlipidemia, unspecified; K21.9 Gastro-esophageal reflux disease without esophagitis; F41.9 Anxiety disorder, unspecified; Z79.84 Long term (current) use of oral hypoglycemic drugs; Z79.899 Other long term (current) drug therapy; Z88.5 Allergy status to narcotic agent

== ENCOUNTER → 2020-11-28 | Outpatient (CLI) | payer MEDICARE ==
[~2020-11-28] MED LIST changes: +ALEN70TA82; +CEPH500C PO; +LACT20EL PO; +NADO20TA PO; +TRUL10IN SC
--- NOTE | 2020-11-30 12:32 | REPVR ---
PROCEDURE INFORMATION: Exam: MR Lumbar Spine Without Contrast Exam date and time: 11/28/2020 12:05 PM Age: 79 years old Clinical indication: Low back pain; Prior surgery; Surgery date: 6+ months; Additional info: Disc degeneration, R/O stenosis TECHNIQUE: Imaging protocol: Multiplanar magnetic resonance images of the lumbar spine without intravenous contrast. COMPARISON: CR Spine, Lumbosacral, partial 02/08/2016 8:26 AM FINDINGS: Vertebrae: A mild levoscoliotic curvature is partially visualized on the iron miner blasting images. There are retrolistheses of approximately 4 mm at L1-L2 and L2-L3 with minimal, grade 1 spondylolisthesis at L4-L5. Alignment is otherwise maintained. Vertebral body heights are intact. No pars defect is identified. A 10 mm hemangioma is present in the T12 vertebral body. Spinal cord: The conus is unremarkable in appearance, with its tip at the L1-L2 level. Multilevel findings: There are varying degrees of disc desiccation indicating intervertebral disc degeneration. Multilevel degenerative endplate changes are also present. T10-T11: Partially included on the sagittal sequences only, there appears to be a disc bulge with at least moderate bilateral neural foraminal narrowing. T11-T12: Included on the sagittal sequences only, there appears to be a disc osteophyte complex with mild right and moderate left neural foraminal narrowing. T12-L1: Included on the sagittal sequences only, there appears to be a disc osteophyte complex with mild right and moderate to severe left neural foraminal narrowing. L1-L2: Disc osteophyte complex combining with facet arthrosis to lead to mild to moderate right and moderate left neural foraminal narrowing with moderate right and mild left lateral recess narrowing, without significant central canal stenosis. L2-L3: Disc osteophyte complex combining with facet arthrosis and ligamentum flavum hypertrophy to lead to severe right and mild to moderate left neural foraminal narrowing with moderate narrowing of the bilateral lateral recesses and mild central canal stenosis. There is small fluid in the left facet joint. L3-L4: Small diffuse bulge combining with facet arthrosis to lead to mild to moderate right and mild left neural foraminal narrowing with very mild right lateral recess narrowing, without significant central canal stenosis. In addition, adjacent to the left posterior aspect of the disc is an ovoid focus of intermediate signal measuring approximately 5 x 4 mm in the axial plane (images 701:11-13), which could represent a conjoined nerve root or extruded disc fragment. L4-L5: Status post right-sided laminotomy. There is a diffuse bulge combining with facet arthrosis to lead to mild right and moderate left neural foraminal narrowing with moderate left lateral recess narrowing, without significant central canal stenosis. Cannot evaluate for scarring without contrast. L5-S1: Disc osteophyte complex combining with facet arthrosis to lead to mild to moderate right and moderate to severe left neural foraminal narrowing with very mild right and moderate left lateral recess narrowing, without significant central canal stenosis. Soft tissues: Unremarkable. Kidneys and ureters: Newly apparent in the left kidney is a 2.4 x 2.2 cm mass with heterogeneous, but predominantly isointense T1 and high T2 signal. IMPRESSION: 1. Postoperative spine demonstrating multilevel disc desiccation indicating intervertebral disk degeneration with disc displacements as described. 2. Left-sided conjoined nerve root versus extruded disc fragment at the L3-L4 level as above. This could be further characterized with gadolinium-enhanced study. 3. 2.4 cm left renal mass, newly apparent as compared with CT of 12/31/2018, nonspecific on MRI but suspicious for pathology such as renal cell carcinoma. COMMENTS: If surgery is considered, recommend level confirmation. Electronically signed by: Magdy Fuentes On 11/30/2020 12:31:35 PM
== END ==
LOC: M PLAIMG 11:09
PROVIDERS: ATTEND Physician Assistant
DX: M51.36 Other intervertebral disc degeneration, lumbar region (principal); N28.89 Other specified disorders of kidney and ureter

== ENCOUNTER → 2020-12-11 | Outpatient (CLI) | payer MEDICARE ==
[~2020-12-11] MED LIST changes: +BENA-8 PO; -BENA20TA8 PO; -BENA40TA5 PO; +BENA40TA84 PO; -SCOP1PAT2 TOP; +TRAN1DIS4 TOP
[2020-12-11 16:25] LABS: BLOOD UREA NITROGEN 17 MG/DL (7-18); CALCIUM LEVEL 8.5 MG/DL (8.8-10.2); CARBON DIOXIDE LEVEL 28 MEQ/L (21-32); CHLORIDE LEVEL 101 MEQ/L (98-107); CREATININE FOR GFR 0.71 MG/DL (0.55-1.30); GLOMERULAR FILTRATION RATE > 60.0 (>39); GLUCOSE, FASTING 254 MG/DL (70-100); POTASSIUM SERUM 4.1 MEQ/L (3.5-5.1); SODIUM LEVEL 136 MEQ/L (136-145)
== END ==
LOC: M PLALAB 13:10
PROVIDERS: ATTEND Nurse Practitioner Family
DX: N28.89 Other specified disorders of kidney and ureter (principal)
CPT/HCPCS: 36415; 80048; G0463

== ENCOUNTER → 2020-12-18 | Outpatient (CLI) | payer MEDICARE ==
[~2020-12-18] MED LIST changes: -BENA-8 PO; +BENA20TA8 PO; +BENA40TA5 PO; -BENA40TA84 PO; +ISOVUE-370 76% 100ML VIAL As Ordered ONE; +SCOP1PAT2 TOP; -TRAN1DIS4 TOP
--- NOTE | 2020-12-19 14:43 | REP ---
INDICATION: LT RENAL MASS. COMPARISON: 12/31/2018 the latest prior TECHNIQUE: Standard helical technique after the intravenous administration of 100 cc Isovue 370 FINDINGS: The lung bases are stable. The pre contrast enhanced portion examination shows no evidence of cholelithiasis or nephrolithiasis. Hepatic and splenic densities are within normal limits. The postcontrast enhanced portion examination shows an enhancing 2.3 cm sized left renal mass arising from the interpolar region posterior cortex. This has developed since the last exam the kidneys are otherwise unchanged. The abdominal aorta and para-aortic regions are within normal limits. There is a micro nodular hepatic surface status quo no enhancing hepatic lesions have developed. The spleen, pancreas, and adrenal glands are unchanged and again seen to be within normal limits. There is recanalization of the umbilical vein status quo. There is no significant change in appearance of the bowel loops or the mesenteries. The imaged osseous structures are essentially unchanged. Rather advanced appearing spinal degenerative changes are noted status quo. IMPRESSION: 1. Interim development of a left renal mass as described above. 2. Evidence of cirrhosis and portal hypertension as described above. 3. Other findings as described above. <Electronically signed by Pete Hollins > 12/19/20 [id number]
== END ==
LOC: M RAD 13:55
PROVIDERS: ATTEND Nurse Practitioner Family
DX: N28.89 Other specified disorders of kidney and ureter (principal); K76.6 Portal hypertension; K74.60 Unspecified cirrhosis of liver
CPT/HCPCS: 74170; Q9967

== ENCOUNTER → 2021-01-01 | Outpatient (CLI) | payer MEDICARE ==
[~2021-01-01] MED LIST changes: -ISOVUE-370 76% 100ML VIAL As Ordered ONE
[2021-01-01 14:00] LABS: HEMATOCRIT 41.4 % (36.0-47.0); HEMOGLOBIN 14.4 g/dl (12.0-15.5); MEAN CORPUSCULAR HEMOGLOBIN 33.2 pg (27.0-33.0); MEAN CORPUSCULAR HGB CONC 34.8 g/dl (32.0-36.5); MEAN CORPUSCULAR VOLUME 95.4 fl (80.0-96.0); PLATELET COUNT, AUTOMATED 186 10^3/uL (150-450); RED BLOOD COUNT 4.34 10^6/uL (4.00-5.40); WHITE BLOOD COUNT 12.5 10^3/uL (4.0-10.0)
[2021-01-01 14:26] LABS: ALBUMIN 3.7 GM/DL (3.2-5.2); ALT/SGPT 44 U/L (12-78); BILIRUBIN,TOTAL 1.7 MG/DL (0.2-1.0); BLOOD UREA NITROGEN 19 MG/DL (7-18); CALCIUM LEVEL 9.1 MG/DL (8.8-10.2); CARBON DIOXIDE LEVEL 29 MEQ/L (21-32); CHLORIDE LEVEL 102 MEQ/L (98-107); CREATININE FOR GFR 0.71 MG/DL (0.55-1.30); GLOMERULAR FILTRATION RATE > 60.0 (>32); GLUCOSE, FASTING 125 MG/DL (70-100); POTASSIUM SERUM 4.4 MEQ/L (3.5-5.1); SODIUM LEVEL 137 MEQ/L (136-145)
[2021-01-01 14:57] LABS: ATYPICAL LYMPH 7 % (0-5); LYMPHOCYTES 24 % (16-44); MONOCYTES 7 % (0-5); NEUTROPHILS 61 % (28-66)
[2021-01-01 14:59] LABS: PLATELET ESTIMATE NORMAL (NORMAL)
[2021-01-01 15:33] LABS: HEMOGLOBIN A1c 7.7 %
== END ==
LOC: M PLALAB 10:50
PROVIDERS: ATTEND Internal Medicine
DX: K74.69 Other cirrhosis of liver (principal); I10 Essential (primary) hypertension; E11.9 Type 2 diabetes mellitus without complications

== ENCOUNTER → 2021-01-01 | Outpatient (CLI) | payer MEDICARE ==
[2021-01-01 14:00] LABS: HEMATOCRIT 41.9 % (36.0-47.0); HEMOGLOBIN 14.2 g/dl (12.0-15.5); MEAN CORPUSCULAR HEMOGLOBIN 32.2 pg (27.0-33.0); MEAN CORPUSCULAR HGB CONC 33.9 g/dl (32.0-36.5); PLATELET COUNT, AUTOMATED 189 10^3/uL (150-450); RED BLOOD COUNT 4.41 10^6/uL (4.00-5.40); WHITE BLOOD COUNT 12.5 10^3/uL (4.0-10.0)
[2021-01-01 14:11] LABS: INR 1.1; PROTHROMBIN TIME 14.6 SECONDS (12.7-14.5)
[2021-01-01 14:12] LABS: PARTIAL THROMBOPLASTIN TIME 36.1 SECONDS (25.9-37.0)
== END ==
LOC: M PLALAB 10:53
PROVIDERS: ATTEND Nurse Practitioner Family
DX: N28.89 Other specified disorders of kidney and ureter (principal)

== ENCOUNTER → 2021-01-10 | Outpatient (CLI) | payer MEDICARE ==
[~2021-01-10] MED LIST changes: +LIDOCAINE 1% MDV 20ML VIAL As Ordered ONE; +SODIUM BICARBONATE 8.4% INJ 50MEQ 50 ML VIAL As Ordered ONE
--- NOTE | 2021-01-10 12:24 | REP ---
INDICATION: POST RENAL BIOPSY COMPARISON: None TECHNIQUE: Axial noncontrast images from the lung bases to the pubic symphysis with coronal and sagittal reformations. This CT examination was performed using the following dose reduction techniques: Automated exposure control, adjustment of mA and/or kv according to the patient's size, and use of iterative reconstruction technique. FINDINGS: A small amount of curvilinear high density perinephric fluid is noted posteriorly with very small foci of gas suggesting small amount of hemorrhage and changes related to recent biopsy. The left kidney is otherwise relatively unremarkable. Right kidney appears normal. Liver demonstrates cirrhosis including recanalized periumbilical vein. Spleen, pancreas, gallbladder, and bilateral adrenal glands are normal by noncontrast evaluation. Visualized enteric system is unremarkable. No pneumoperitoneum. No ascites. IMPRESSION: Findings suggest small amount of subcapsular fluid/hemorrhage along the posterior aspect of the left kidney with small foci of gas consistent with recent biopsy. Consider ultrasound baseline evaluation and further ultrasound follow-up examinations as necessary. Evidence for cirrhosis. <Electronically signed by Sai Maldonado > 01/10/21 [id number]
[2021-01-10 13:45] VITALS: BP 125/70
--- NOTE | 2021-01-10 15:59 | REP ---
INDICATION: LEFT RENAL MASS. COMPARISON: CT with without contrast dated 12/18/2020 TECHNIQUE: The procedure is performed by Breanna Mei [facility], under the direct supervision of Dr. Kapadia. The risks and benefits of the procedure were explained to the patient and informed consent was obtained both orally and written. Directly prior to the start of the procedure, a formal timeout was done in the exam room. The left renal mass was localized using CT guidance. Skin was prepped and draped in the usual sterile fashion. Twelve ml of buffered lidocaine was used as a local anesthetic. FINDINGS: Using CT guidance a 19/20 gauge coaxial needle biopsy system was inserted and advanced into the left renal mass. Six core biopsy samples were obtained and sent to the lab. CT images obtained directly after the biopsy demonstrated a small hematoma. 2 hours after the procedure a CT scan of the abdomen was done, the hematoma had not gotten any larger. The patient had no pain and was in 0 distress. After the appropriate amount of monitored convalescence the patient was discharged from the department. IMPRESSION: CT-guided left renal mass biopsy. <Electronically signed by Breanna Mei > 01/10/21 1539 <Electronically signed by Dio Kapadia > 01/10/21 [id number]
== END ==
LOC: M IRPRO 08:06
PROVIDERS: ATTEND Nurse Practitioner Family
DX: C64.9 Malignant neoplasm of unspecified kidney, except renal pelvis (principal)

== ENCOUNTER → 2021-02-06 | Outpatient (POV) | payer MEDICARE ==
[~2021-02-06] VITALS: Ht 152.4 cm; Wt 63.1 kg
[~2021-02-06] MED LIST changes: -LIDOCAINE 1% MDV 20ML VIAL As Ordered ONE; -SCOP1PAT2 TOP; -SODIUM BICARBONATE 8.4% INJ 50MEQ 50 ML VIAL As Ordered ONE; +TRAN1DIS4 TOP
[2021-02-06 09:10] VITALS: BP 169/87
--- NOTE | 2021-02-07 11:56 | IRCOV ---
[facility] IR Consult Office Visit IR Consult Office Visit DATE: Feb 06, 2021 REASON FOR CONSULTATION/CHIEF COMPLAINT: Renal cell cancer. HISTORY OF PRESENT ILLNESS: 80-year-old female with end-stage liver disease, fatty liver associated cirrhosis, portal hypertension, diabetes and chronic back pain, presented to orthopedics for recurrent and refractory back pain. At that time, she had an MRI, which showed an incidental left renal mass. 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 Patient denies any left flank pain. Patient denies any other procedures or surgeries on the left kidney other than the biopsy. Patient denies any hematuria. Patient denies any change in weight or appetite. No fevers or chills. No prior history of renal cancer. No industrial exposures. ALLERGIES: Please see below. HOME MEDICATIONS: Please see below. PAST MEDICAL HISTORY: Hypertension Hyperlipidemia Diabetes Cirrhosis Portal hypertension PAST SURGICAL HISTORY: Laminectomies FAMILY HISTORY: Noncontributory. SOCIAL HISTORY: Non-smoker. Denies alcohol or drugs. REVIEW OF SYSTEMS: Otherwise negative. PHYSICAL EXAMINATION: VITAL SIGNS: Please see below. GENERAL APPEARANCE: Appears well. Comfortable at rest. HEENT: No scleral icterus. RESPIRATORY: Normal breathing at rest. CARDIOVASCULAR: Normal rate. ABDOMEN: Soft nontender. EXTREMITIES: No edema. NEUROLOGICAL: Alert and oriented. PSYCHIATRIC: Appropriate to circumstance. LABORATORY DATA: 01/01/2021 hemoglobin 14.4 hematocrit 41.4 WBC 12.5 platelets 186 sodium 137 potassium 4.4 BUN 19 creatinine 0.7 GFR greater than 60 hemoglobin A1c 7.7 total bilirubin 1.7 GGT 32 AST 22 ALT 44 ALP 67 INR 1.1 Imaging: I personally reviewed the CT abdomen without and with contrast performed 12/18/2020. There is a 2.3 x 2.4 x 2.4 cm craniocaudal, enhancing, mixed heterogeneous mass, partially exophytic and partially intraparenchymal, arising off the left kidney. Patent left renal vein. Cirrhotic appearing liver with recanalized periumbilical vein and esophageal varices, indicating portal hypertension. ASSESSMENT/PLAN: 80-year-old female with end-stage liver disease, diabetes and hypertension, presents for evaluation of left renal mass for cryoablation. I agree patient would benefit from left kidney RCC cryoablation. The lesion is approachable percutaneously. We discussed the risks and benefits of the procedure and patient has agreed to proceed. We will schedule the patient for left RCC renal cryoablation. Treatment intent is curative. Patient will be followed up with surveillance imaging post procedure to ensure no residual or recurrence. I spent 30 minutes reviewing patient's records, imaging and in consultation with the patient. Thank you for this referral. CC Dr. Zamorano Allergies Coded Allergies: codeine (Verified Adverse Reaction, Mild, N/V , HALLUCINATIONS, 12/13/18) Home Medications Scheduled Benazepril HCl (Benazepril HCl), 20 MG PO QHS, (Reported) Calcium/Magnesium/Zinc (Wuagywl-Phcmsqwnj-Vfbl Tablet), 1 TAB PO DAILY, (Reported) Dulaglutide (Trulicity), 0.75 MG SC Q7D, (Reported) Duloxetine Hcl (Duloxetine HCl), 40 MG PO DAILY, (Reported) Furosemide (Furosemide), MG PO DAILY, (Reported) Gabapentin (Gabapentin), 600 MG PO BID, (Reported) Glipizide (Glipizide), 5 MG PO BIDWM, (Reported) Lactulose (Lactulose), 30 ML PO BID Metformin HCl (Metformin HCl ER), 1,500 MG PO QPM, (Reported) Nadolol (Nadolol), 1 TAB PO DAILY, (Reported) Pramipexole Di-HCl (Pramipexole Dihydrochloride), 1.5 MG PO QHS, (Reported) Pravastatin Sodium (Pravastatin Sodium), 5 MG PO DAILY, (Reported) Spironolactone (Spironolactone), MG PO DAILY, (Reported) Scheduled PRN Acetaminophen (Acetaminophen ER), 650 MG PO Q8H PRN for PAIN, (Reported) Miscellaneous Medications Alendronate Sodium (Alendronate Sodium), (Reported) VS, I&O, 24H, Fishbone Vital Signs/I&O Vital Signs Date Time Temp Pulse Resp B/P (MAP) Pulse Ox O2 Delivery O2 Flow Rate FiO2 02/06/21 09:10 97.8 82 20 169/87 (114) 95 Room Air CALEB GUAMAN MD Feb 07, 2021 11:56
== END ==
LOC: M IRPOV 09:03
PROVIDERS: ATTEND Radiology Diagnostic Radiology
DX: C64.2 Malignant neoplasm of left kidney, except renal pelvis (principal); E11.9 Type 2 diabetes mellitus without complications; E78.5 Hyperlipidemia, unspecified; I10 Essential (primary) hypertension; K72.90 Hepatic failure, unspecified without coma; K74.60 Unspecified cirrhosis of liver; K76.0 Fatty (change of) liver, not elsewhere classified; K76.6 Portal hypertension; M54.9 Dorsalgia, unspecified; G89.29 Other chronic pain

== ENCOUNTER → 2021-02-22 | Outpatient (CLI) | payer MEDICARE ==
[~2021-02-22] MED LIST changes: +ACETAMINOPHEN 325 MG TAB As Ordered ONE; +ACETAMINOPHEN 325 MG TAB PO ONE; +ACETAMINOPHEN TAB 650MG DOSE (2X325MG) PO ONE; +LIDOCAINE 1% MDV 20ML VIAL As Ordered ONE; +MIDAZOLAM INJ 2MG/2ML VIAL (J2250 PER 1MG) As Ordered ONE; +NS 1,000 ML IV SCH; +diphenhydrAMINE 50MG/ML VIAL (J1200) As Ordered ONE; +fentaNYL 100 MCG/2 ML INJECTION (J3010) As Ordered ONE
[2021-02-22 09:37] LABS: HEMATOCRIT 36.9 % (36.0-47.0); MEAN CORPUSCULAR HEMOGLOBIN 32.3 pg (27.0-33.0); MEAN CORPUSCULAR HGB CONC 35.2 g/dl (32.0-36.5); MEAN CORPUSCULAR VOLUME 91.6 fl (80.0-96.0); PLATELET COUNT, AUTOMATED 159 10^3/uL (150-450); RED BLOOD COUNT 4.03 10^6/uL (4.00-5.40)
--- NOTE | 2021-02-22 10:07 | IRHP ---
[facility] IR Pre-Procedure H & P General Date of Service: Feb 22, 2021 Procedure: Same Day Surgery Interval History and Physical I have seen the patient and reviewed last H & P performed within 30 days. There is no significant interval change. History of Present Illness Chief Complaint The patient is a 80-year-old female admitted with a reason for visit of Malignant Neoplasm Of Left Kidney, Except Renal Pe. PRE-PROCEDURE DIAGNOSIS: Left RCC HEART: Normal rate. LUNGS: Normal breathing at rest. ASA Classification ASA Classification: III-Severe systemic dis. Mallampati Score: II NPO: Yes Problems with prior sedation: No Obstructive Sleep Apnea: No Plan moderate sedation Allergies Coded Allergies: codeine (Verified Adverse Reaction, Mild, N/V , HALLUCINATIONS, 12/13/18) Home Medications Scheduled Benazepril HCl (Benazepril HCl), 20 MG PO QHS, (Reported) Calcium/Magnesium/Zinc (Jjtnigb-Qisehxcqo-Dixm Tablet), 1 TAB PO DAILY, (Reported) Dulaglutide (Trulicity), 0.75 MG SC Q7D, (Reported) Duloxetine Hcl (Duloxetine HCl), 40 MG PO DAILY, (Reported) Furosemide (Furosemide), MG PO DAILY, (Reported) Gabapentin (Gabapentin), 600 MG PO BID, (Reported) Glipizide (Glipizide), 5 MG PO BIDWM, (Reported) Lactulose (Lactulose), 30 ML PO BID Metformin HCl (Metformin HCl ER), 1,500 MG PO QPM, (Reported) Nadolol (Nadolol), 1 TAB PO DAILY, (Reported) Pramipexole Di-HCl (Pramipexole Dihydrochloride), 1.5 MG PO QHS, (Reported) Pravastatin Sodium (Pravastatin Sodium), 5 MG PO DAILY, (Reported) Spironolactone (Spironolactone), MG PO DAILY, (Reported) Scheduled PRN Acetaminophen (Acetaminophen ER), 650 MG PO Q8H PRN for PAIN, (Reported) Miscellaneous Medications Alendronate Sodium (Alendronate Sodium), (Reported) VS, I&O, 24H, Fishbone Laboratory Data 24H LABS Laboratory Tests 2 02/22/21 09:23: Nucleated Red Blood Cells % (auto) 0.0 CBC/BMP Laboratory Tests 02/22/21 09:23 CALEB GUAMAN MD Feb 22, 2021 10:06
[2021-02-22 14:00] VITALS: BP 121/64
--- NOTE | 2021-02-22 16:10 | IRPON ---
IR Postoperative Note Date Of Procedure: Feb 22, 2021 Time Of Procedure: 16:04 IR Postoperative Note IR CT Guided Renal Cryoablation. IR Moderate sedation. Clinical Information:Left renal cell carcinoma. Physician: Dr. Hendricks. Procedure: The patient was advised of the benefits, risks, and alternatives of the procedure and informed consent was obtained. A time out was performed with verification of the patient's name, MRN, site of procedure, and type of procedure to be performed. The patient was positioned in the prone position on the CT table. The site was prepped and draped in the usual sterile fashion. Moderate sedation was performed by the physician including the presence of an independent trained RN, who assisted in monitoring the patient's level of consciousness and physiological status. Following the administration of fentanyl and Versed, the physician spent 90 minutes of continuous vreq-dl-jevs time with the patient. Preliminary CT demonstrates a 2.6 x 2.6 x 2.8 cm mass in the left kidney. The skin and expected tract were anesthestized with lidocaine. A small skin incision was then made. Using CT guidance, a 14-gauge ice force cryoablation probe was advanced into the target lesion.The probe was positioned to ensure complete tumor coverage with adequate margin. A 10-minute freeze, followed by 8-minute passive thaw, followed by 12-minute repeat freeze and active thaw cycle was performed. Intraprocedural CT demonstrates adequate coverage of the target lesion with an ice-ball. The cryoablation probe was removed after active thawing. The puncture sites were cleansed and a sterile dressing was applied. The patient tolerated the procedure well and was returned to the PRU in stable condition.second thaw length EBL:< 5 mL. Complications:None. Conclusion: 1. Successful cryoablation of left renal cell carcinoma. 2. Patient to follow-up in IR clinic in 1 month with repeat imaging. Thank you for this referral. CC CALEB Schultz MD Feb 22, 2021 16:10
== END ==
LOC: M IRPRO 08:54
PROVIDERS: ATTEND Radiology Diagnostic Radiology
DX: C64.2 Malignant neoplasm of left kidney, except renal pelvis (principal); E11.9 Type 2 diabetes mellitus without complications; I10 Essential (primary) hypertension; G25.81 Restless legs syndrome; K76.0 Fatty (change of) liver, not elsewhere classified; M19.90 Unspecified osteoarthritis, unspecified site; Z79.899 Other long term (current) drug therapy; Z88.5 Allergy status to narcotic agent
CPT/HCPCS: 50593; 77012; 85027; 99152; 99153; C2618; J1200; J2250; J3010

== ENCOUNTER → 2021-03-13 | Outpatient (POV) | payer MEDICARE ==
[~2021-03-13] VITALS: Ht 152.4 cm; Wt 66.3 kg
[~2021-03-13] MED LIST changes: -ACETAMINOPHEN 325 MG TAB As Ordered ONE; -ACETAMINOPHEN 325 MG TAB PO ONE; -ACETAMINOPHEN TAB 650MG DOSE (2X325MG) PO ONE; -LIDOCAINE 1% MDV 20ML VIAL As Ordered ONE; -MIDAZOLAM INJ 2MG/2ML VIAL (J2250 PER 1MG) As Ordered ONE; -NS 1,000 ML IV SCH; -diphenhydrAMINE 50MG/ML VIAL (J1200) As Ordered ONE; -fentaNYL 100 MCG/2 ML INJECTION (J3010) As Ordered ONE
[2021-03-13 08:20] VITALS: BP 120/64
--- NOTE | 2021-03-15 11:54 | IRPN ---
[facility] IR Progress Note IR Progress Note DATE: Mar 13, 2021 FOLLOW-UP: Patient with left renal cell carcinoma, underwent cryotherapy. Patient denies any pain or symptoms post cryotherapy. Patient denies hematuria. ON EXAMINATION: Cryotherapy access site healed. No redness. No tenderness. No hematoma. IMPRESSION: Doing well status post left renal cryoablation. Patient has follow- up imaging scheduled for March. Patient will be followed up in IR, with this 1 month post cryoablation imaging. Thank you for this referral. CC Dr. Zamorano Allergies Coded Allergies: codeine (Verified Adverse Reaction, Mild, N/V , HALLUCINATIONS, 12/13/18) VS,Fishbone, I+O VS, Fishbone, I+O Vital Signs Date Time Temp Pulse Resp B/P (MAP) Pulse Ox O2 Delivery O2 Flow Rate FiO2 03/13/21 08:20 96.8 80 20 120/64 (82) 96 Room Air CALEB GUAMAN MD Mar 15, 2021 11:54
== END ==
LOC: M IRPOV 08:12
PROVIDERS: ATTEND Radiology Diagnostic Radiology
DX: Z48.816 Encounter for surgical aftercare following surgery on the genitourinary system (principal); C64.2 Malignant neoplasm of left kidney, except renal pelvis
CPT/HCPCS: 77012; G0463

== ENCOUNTER → 2021-03-22 | Outpatient (CLI) | payer MEDICARE ==
[2021-03-22 09:34] LABS: CALCIUM LEVEL 8.2 MG/DL (8.8-10.2); CREATININE FOR GFR 1.02 MG/DL (0.55-1.30); GLOMERULAR FILTRATION RATE 55.5 (>32); POTASSIUM SERUM 4.4 MEQ/L (3.5-5.1)
== END ==
LOC: M LAB 08:29
PROVIDERS: ATTEND Radiology Diagnostic Radiology
DX: C64.9 Malignant neoplasm of unspecified kidney, except renal pelvis (principal)

== ENCOUNTER → 2021-03-26 | Outpatient (CLI) | payer MEDICARE ==
[~2021-03-26] MED LIST changes: +ISOVUE-370 76% 100ML VIAL As Ordered ONE
--- NOTE | 2021-03-26 13:37 | REP ---
INDICATION: RCC POST CRYOABLATION-IV CONTRAST. COMPARISON: Noncontrast 01/10/[address], CT without and with 12/18/2020 TECHNIQUE: Bolus 100 mL Isovue 370 scanning through the abdomen before contrast an with arterial and delayed images performed. Coronal and sagittal reconstructions provided FINDINGS: Pre contrast and contrast enhanced images again show mass posteriorly in the noon interpolar region of the left kidney measuring by 2.[address] attenuation appears more homogeneous on the contrast study with less internal solid components suggested. Attenuation values of 20-25 HU are noted after contrast. Pre contrast study demonstrates values from 15-23 HU. Accordingly I do not see significant enhancement is certainly not the pattern of the irregular enhancement within the mass on pretreatment images. I do not see enlargement of that mass nor other masses in either kidney no perinephric fluid and very minimal stranding of the perinephric fat adjacent to this lesion. There is no hydronephrosis, stone or hydroureter. Tiny cortical sub cm cyst anteriorly on the left unchanged. The right kidney is unremarkable. Liver shows a somewhat lobulated contour and enlarged right hepatic lobe suggesting chronic liver disease but stable. The spleen is not enlarged and without focal lesion. Gallbladder shows no calcified stone or mass. Pancreas, adrenal glands and stomach were unremarkable. Aorta has atherosclerotic calcifications. No periaortic, other retroperitoneal or mesenteric pathologic size nodes are seen. Bones are unchanged. IMPRESSION: 1. The mass in the posterior aspect interpolar region left kidney is unchanged in size following cryoablation but is more homogeneous in density by CT and showed no internal pattern of enhancement with contrast that was present on the study 3 months ago. No other significant or new finding. <Electronically signed by Mark Beck > 03/26/21 [id number]
== END ==
LOC: M RAD 11:10
PROVIDERS: ATTEND Radiology Diagnostic Radiology
DX: N28.89 Other specified disorders of kidney and ureter (principal)
CPT/HCPCS: 74170; Q9967

== ENCOUNTER → 2021-04-03 | Outpatient (POV) | payer MEDICARE ==
[~2021-04-03] VITALS: Ht 152.4 cm; Wt 61.3 kg
[~2021-04-03] MED LIST changes: -ISOVUE-370 76% 100ML VIAL As Ordered ONE
[2021-04-03 09:27] VITALS: BP 124/77
--- NOTE | 2021-04-05 08:41 | IRPN ---
[facility] IR Progress Note IR Progress Note DATE: Apr 03, 2021 FOLLOW-UP: Patient is status post left renal cell carcinoma cryoablation February 22, 2021. Imaging: I personally reviewed the CT abdomen without and with contrast performed 03/26/2021. The majority of the left renal cell carcinoma is now with no enhancement. However, along the medial edge, there remains a sliver of enhancing tumor estimated to be 5% of the prior volume. We discussed this would benefit from repeat cryoablation. We discussed the risks and benefits of the procedure and patient is willing to proceed. We will schedule the patient for left renal cell cryoablation. IMPRESSION: 95% response to left renal cell cryoablation with tumor . 5% tumor remains enhancing and should be repeat ablated. We will schedule the patient for cryoablation. Allergies Coded Allergies: codeine (Verified Adverse Reaction, Mild, N/V , HALLUCINATIONS, 12/13/18) VS,Fishbone, I+O VS, Fishbone, I+O Vital Signs Date Time Temp Pulse Resp B/P (MAP) Pulse Ox O2 Delivery O2 Flow Rate FiO2 04/03/21 09:27 97.4 64 20 124/77 (93) 98 Room Air CALEB GUAMAN MD Apr 05, 2021 08:41
== END ==
LOC: M IRPOV 09:12
PROVIDERS: ATTEND Radiology Diagnostic Radiology
DX: C64.2 Malignant neoplasm of left kidney, except renal pelvis (principal); Z48.816 Encounter for surgical aftercare following surgery on the genitourinary system; Z88.5 Allergy status to narcotic agent

== ENCOUNTER → 2021-04-16 | Outpatient (CLI) | payer MEDICARE ==
[~2021-04-16] MED LIST changes: +BENA-8 PO; -BENA20TA8 PO; -BENA40TA5 PO; +BENA40TA84 PO; +ISOVUE-300 61% 50ML VIAL As Ordered ONE; +ISOVUE-370 76% 100ML VIAL As Ordered ONE; +LIDOCAINE 1% MDV 20ML VIAL As Ordered ONE; +MIDAZOLAM INJ 2MG/2ML VIAL (J2250 PER 1MG) As Ordered ONE; +NS 1,000 ML IV SCH; +PROMETHAZINE INJ 25 MG/ML VIAL (J2550) As Ordered ONE; +diphenhydrAMINE 50MG/ML VIAL (J1200) As Ordered ONE; +fentaNYL 100 MCG/2 ML INJECTION As Ordered ONE
[2021-04-16 13:20] VITALS: BP 147/72
== END ==
LOC: M IRPRO 08:23
PROVIDERS: ATTEND Radiology Diagnostic Radiology
DX: C64.2 Malignant neoplasm of left kidney, except renal pelvis (principal)
CPT/HCPCS: 50593; 77012; 99152; 99153; C2618; J2250; J3010; Q9967

== ENCOUNTER → 2021-04-30 | Outpatient (CLI) | payer MEDICARE ==
[~2021-04-30] MED LIST changes: -ISOVUE-300 61% 50ML VIAL As Ordered ONE; -ISOVUE-370 76% 100ML VIAL As Ordered ONE; -LIDOCAINE 1% MDV 20ML VIAL As Ordered ONE; -MIDAZOLAM INJ 2MG/2ML VIAL (J2250 PER 1MG) As Ordered ONE; -NS 1,000 ML IV SCH; -PROMETHAZINE INJ 25 MG/ML VIAL (J2550) As Ordered ONE; -diphenhydrAMINE 50MG/ML VIAL (J1200) As Ordered ONE; -fentaNYL 100 MCG/2 ML INJECTION As Ordered ONE
[2021-04-30 08:47] LABS: ALBUMIN 2.9 GM/DL (3.2-5.2); BILIRUBIN,DIRECT 0.2 MG/DL (0.0-0.2); BILIRUBIN,TOTAL 0.9 MG/DL (0.2-1.0); TOTAL PROTEIN 6.3 GM/DL (6.4-8.2)
== END ==
LOC: M LAB 07:29
PROVIDERS: ATTEND Internal Medicine Gastroenterology
DX: K72.90 Hepatic failure, unspecified without coma (principal); K74.60 Unspecified cirrhosis of liver

== ENCOUNTER → 2021-05-02 | Outpatient (CLI) | payer MEDICARE ==
[~2021-05-02] MED LIST changes: -BENA-8 PO; +BENA20TA8 PO; +BENA40TA5 PO; -BENA40TA84 PO
--- NOTE | 2021-05-02 09:12 | REP ---
INDICATION: K74.60 CIRRHOSIS OF LIVER COMPARISON: 11/02/2020 TECHNIQUE: Real time painter scale ultrasound examination using curved array transducer. FINDINGS: Liver again demonstrates coarsened echotexture along with patent umbilical vein and mildly dilated main portal vein measuring 17 mm diameter. Pancreas appears normal. The gallbladder is normal and without gallstones, wall thickening, or pericholecystic fluid. No biliary ductal dilatation is appreciated and the common bile duct measures 5.3 mm diameter. Right kidney is normal in reniform shape without hydronephrosis and measures 9.6 x 5.5 x 4.0 cm. No ascites in the visualized right upper quadrant. Visualized portions of the abdominal aorta appear normal. IMPRESSION: Coarsened hepatic echotexture with dilated main portal vein and patent umbilical vein consistent with cirrhosis and portal hypertension. No ascites. <Electronically signed by Sai Maldonado > 05/02/21 0914
== END ==
LOC: M RAD 07:08
PROVIDERS: ATTEND Internal Medicine Gastroenterology
DX: K74.60 Unspecified cirrhosis of liver (principal)

== ENCOUNTER → 2021-05-21 | Outpatient (CLI) | payer MEDICARE ==
[~2021-05-21] MED LIST changes: +ISOVUE-370 76% 100ML VIAL As Ordered ONE
--- NOTE | 2021-05-21 08:32 | REP ---
INDICATION: RCC. COMPARISON: 01/10/2021, 03/26/2021 TECHNIQUE: Axial precontrast, contrast-enhanced and delayed images of the abdomen using 100 cc Isovue 370 intravenous contrast material. Coronal and sagittal reformations were obtained. This CT examination was performed using the following dose reduction techniques: Automated exposure control, adjustment of mA and/or kv according to the patient's size, and the use of iterative reconstruction technique. FINDINGS: The previously treated 2 cm left renal mass remains low-density with central fluid suggesting necrosis and no obvious enhancement or increase in size. The adjacent renal parenchyma in the medial limb of the upper pole now demonstrates geographic area of low density consistent with associated infarction (series 301; images 43-48). Remainder of the left kidney demonstrates normal satisfactory enhancement and no further abnormality. The right kidney is normal. Evidence for cirrhosis and portal hypertension including recanalized umbilical vein and esophageal varices. The liver itself demonstrates a nodular contour without focal mass lesion or abnormality. Splenomegaly noted as well. Pancreas, gallbladder, and bilateral adrenal glands are normal. Visualized portions of the enteric system are grossly unremarkable. Few scattered colonic diverticula noted. No ascites. No free air. No significant adenopathy identified. Abdominal aorta without aneurysm. Musculoskeletal structures demonstrate stable degenerative changes. IMPRESSION: 1. The 2 cm left renal mass remains low density and unchanged in size without enhancement consistent with prior cryoablation therapy. 2. Medial limb of the left kidney distal to the mass demonstrates geographic low-density consistent with area of infarction. Remainder of the left kidney and right kidney are normal in appearance. <Electronically signed by Sai Maldonado > 05/21/21 0838
== END ==
LOC: M RAD 07:39
PROVIDERS: ATTEND Radiology Diagnostic Radiology
DX: N28.89 Other specified disorders of kidney and ureter (principal)
CPT/HCPCS: 74170; Q9967

== ENCOUNTER → 2021-05-22 | Outpatient (POV) | payer MEDICARE ==
[~2021-05-22] VITALS: Ht 152.4 cm; Wt 66.8 kg
[~2021-05-22] MED LIST changes: -ISOVUE-370 76% 100ML VIAL As Ordered ONE
[2021-05-22 08:30] VITALS: BP 110/72
== END ==
LOC: M IRPOV 08:22
PROVIDERS: ATTEND Radiology Diagnostic Radiology
DX: C64.2 Malignant neoplasm of left kidney, except renal pelvis (principal); Z48.816 Encounter for surgical aftercare following surgery on the genitourinary system

== ENCOUNTER → 2021-06-19 | Outpatient (CLI) | payer MEDICARE ==
[~2021-06-19] MED LIST changes: +BENA-8 PO; -BENA20TA8 PO; -BENA40TA5 PO; +BENA40TA84 PO
== END ==
LOC: M PLALAB 08:12
PROVIDERS: ATTEND Internal Medicine
DX: E11.9 Type 2 diabetes mellitus without complications (principal)

== ENCOUNTER 2021-07-22 15:58 | Inpatient (IN) | payer MEDICARE ==
[~2021-07-22] VITALS: Ht 152.4 cm; Wt 78.5 kg
[~2021-07-22 15:58] MED LIST changes: -ALEN70TA82; +ALEN70TA82 PO
[2021-07-22] MEDS ORDERED: MORP-69 PO (16:11)
[2021-07-22] MEDS ORDERED: LASI40TA9 PO (16:11)
[2021-07-22] MEDS ORDERED: MIRA0.5T PO (16:11)
[2021-07-22] MEDS ORDERED: PROC5TAB57 PO (16:11)
[2021-07-22] MEDS ORDERED: NS 1,000 ML IV SCH ×3 (16:30→21:30)
[2021-07-22 17:03] LABS: VENOUS BASE EXCESS -21.4 (-2.0-2.0); VENOUS HCO3 8.6 MEQ/L (23.0-27.0); VENOUS O2 SATURATION 95.5 % (60.0-80.0); VENOUS PARTIAL PRESSURE CO2 33.9 mmHg (38.0-50.0); VENOUS PARTIAL PRESSURE O2 98.8 mmHg (30.0-50.0); VENOUS PH 7.024 UNITS (7.330-7.430); VENOUS STANDARD HCO3 9.4 MEQ/L; VENOUS TOTAL CO2 9.7 MEQ/L (24.0-28.0)
[2021-07-22 17:06] LABS: BASO # 0.1 10^3/uL (0.0-0.2); BASO % 0.3 % (0.0-1.0); HEMATOCRIT 42.7 % (36.0-47.0); HEMOGLOBIN 13.9 g/dl (12.0-15.5); LYMPH # 3.9 10^3/uL (1.5-5.0); LYMPH % 22.4 % (24.0-44.0); MEAN CORPUSCULAR HEMOGLOBIN 31.5 pg (27.0-33.0); MEAN CORPUSCULAR HGB CONC 32.6 g/dl (32.0-36.5); MEAN CORPUSCULAR VOLUME 96.8 fl (80.0-96.0); MONO # 0.6 10^3/uL (0.0-0.8); MONO % 3.2 % (2.0-8.0); NEUTROPHILS # 12.8 10^3/uL (1.5-8.5); NEUTROPHILS % 73.3 % (36.0-66.0); PLATELET COUNT, AUTOMATED 203 10^3/uL (150-450); RED BLOOD COUNT 4.41 10^6/uL (4.00-5.40); WHITE BLOOD COUNT 17.5 10^3/uL (4.0-10.0)
[2021-07-22 17:38] LABS: OSMOLALITY SERUM 309 MOSM/KG (280-301)
[2021-07-22] MEDS ORDERED: DULO30CA47 PO (17:44)
[2021-07-22] MEDS ORDERED: BENA-8 PO (17:44)
[2021-07-22] MEDS ORDERED: ENUL10SO PO (17:44)
[2021-07-22] MEDS ORDERED: HOME MED LIST COMPLETE! XX SCH (17:45)
[2021-07-22 17:47] LABS: ACETAMINOPHEN LEVEL < 2.0 UG/ML (10.0-30.0); ALBUMIN 3.1 GM/DL (3.2-5.2); ALT/SGPT 39 U/L (12-78); BILIRUBIN,DIRECT 0.3 MG/DL (0.0-0.2); BILIRUBIN,TOTAL 0.9 MG/DL (0.2-1.0); BLOOD UREA NITROGEN 97 MG/DL (7-18); CALCIUM LEVEL 8.8 MG/DL (8.8-10.2); CARBON DIOXIDE LEVEL 9 MEQ/L (21-32); CHLORIDE LEVEL 88 MEQ/L (98-107); CREATININE FOR GFR 7.23 MG/DL (0.55-1.30); ETHYL ALCOHOL (ETHANOL) < 0.003 % (0.000-0.010); GLOMERULAR FILTRATION RATE 5.8 (>32); GLUCOSE, FASTING 34 MG/DL (70-100); POTASSIUM SERUM 6.6 MEQ/L (3.5-5.1); SALICYLATE LEVEL < 1.7 MG/DL (5.0-30.0); SODIUM LEVEL 127 MEQ/L (136-145); THYROID STIMULATING HORMONE 0.471 uIU/ML (0.358-3.740)
[2021-07-22] MEDS ORDERED: NS 1,870 ML in IV 1 EA IV ONE (17:50)
[2021-07-22] MEDS ORDERED: DEXTROSE 50% 50 ML SYRINGE IV STA (17:50)
[2021-07-22] MEDS ORDERED: cefTRIAXone SOD 2 GM in D5W MINI-BAG PLUS 50 ML IV ONE (17:50)
[2021-07-22] MEDS ORDERED: DEXTROSE 50% 50 ML SYRINGE As Ordered ONE (17:51)
[2021-07-22] MEDS ORDERED: SODIUM BICARBONATE 8.4% INJ 50 ML SYRINGE IV ONE (17:55)
[2021-07-22] MEDS ORDERED: PATIROMER SORBITEX CALCIUM 8.4 GM POWDER PACKET (VELTASSA) PO ONE (17:55)
[2021-07-22] MEDS ORDERED: CALCIUM CHLORIDE 10% 1 GM/10 ML SYR IV ONE (17:55)
[2021-07-22] MEDS ORDERED: SODIUM BICARBONATE 4.2% INJ 10ML SYRINGE IV ONE (17:55)
[2021-07-22] MEDS: HumaLOG INSULIN (NovoLOG) PER UNIT SC SCH (18:00)
[2021-07-22] MEDS ORDERED: LIDOCAINE 2% 5ML JELLY UROJET TOP ONE (18:00)
[2021-07-22 18:02] LABS: ABG HCO3 6.6 MEQ/L (22.0-26.0)
[2021-07-22 18:03] LABS: ABG BASE EXCESS -23.2 (-2.0-2.0); ABG O2 SATURATION 94.4 % (95.0-99.0); ABG PARTIAL PRESSURE CO2 26.1 mmHg (35.0-45.0); ABG PARTIAL PRESSURE O2 91.7 mmHg (75.0-100.0); ABG STANDARD HCO3 8.4 MEQ/L (22.0-26.0); ABG TOTAL CO2 7.4 MEQ/L (23.0-31.0)
[2021-07-22 18:06] LABS: ABG pH (ARTERIAL) 7.019 UNITS (7.350-7.450)
[2021-07-22] MEDS ORDERED: HumuLIN R (REGULAR) INSULIN (NovoLIN R) **100U/ML** PER UNIT IV ONE (18:15)
[2021-07-22] MEDS ORDERED: D5W 1,000 ML IV ONE (18:45)
[2021-07-22 18:50] LABS: RSV AMPLIFICATION NEGATIVE (NEGATIVE)
[2021-07-22 19:13] LABS: MAGNESIUM LEVEL 3.1 MG/DL (1.8-2.4); URIC ACID 10.6 MG/DL (2.6-6.0)
[2021-07-22] MEDS ORDERED: SODIUM BICARBONATE 150 MEQ in D5W 1,000 ML IV ONE (19:30)
[2021-07-22] MEDS ORDERED: GLUCAGON INJ 1MG VIAL SC PRN (19:50)
[2021-07-22] MEDS ORDERED: GLUCOSE 4GM CHEW TABLET PO PRN (19:50)
[2021-07-22] MEDS ORDERED: DEXTROSE 50% 50 ML SYRINGE IV PRN (19:50)
[2021-07-22] MEDS ORDERED: ONDANSETRON 4MG/2ML VIAL IV PRN (20:00)
[2021-07-22 20:55] LABS: LIPASE 126 U/L (73-393)
[2021-07-22] MEDS ORDERED: LACTULOSE 20 GM/30 ML SYRUP UD PO SCH (21:00)
[2021-07-22 22:18] LABS: AMPHETAMINES LEVEL URINE NEGATIVE (NEGATIVE); BARBITURATES URINE NEGATIVE (NEGATIVE); BENZODIAZEPINES URINE NEGATIVE (NEGATIVE); CANNABINOIDS URINE NEGATIVE (NEGATIVE); COCAINE METABOLITE URINE NEGATIVE (NEGATIVE); METHADONE URINE NEGATIVE (NEGATIVE); OPIATES URINE POSITIVE (NEGATIVE); PHENCYCLIDINE URINE NEGATIVE (NEGATIVE)
[2021-07-22 22:21] LABS: CREATININE,RANDOM URINE 37.3 MG/DL
[2021-07-22 22:22] LABS: CALCIUM LEVEL 8.1 MG/DL (8.8-10.2); CREATININE FOR GFR 6.99 MG/DL (0.55-1.30); POTASSIUM SERUM 5.5 MEQ/L (3.5-5.1)
[2021-07-22 22:25] VITALS: BP 170/76
[2021-07-22 22:27] VITALS: BP 154/74
[2021-07-22 22:31] LABS: INR 1.22; PROTHROMBIN TIME 15.8 SECONDS (12.7-14.5)
[2021-07-22 22:32] LABS: PARTIAL THROMBOPLASTIN TIME 37.7 SECONDS (25.9-37.0)
[2021-07-22] MEDS: SODIUM BICARBONATE 100 MEQ in D5W 1,000 ML IV SCH (22:34)
[2021-07-22] MEDS: PIPERACILLIN/TAZOBACTAM SOD 2.25 GM in D5W MINI-BAG PLUS 50 ML IV SCH (22:46)
[2021-07-22 23:00] VITALS: BP 154/74
[2021-07-23] VITALS (29 sets, daily range): BP systolic 83–130; BP diastolic 49–75
[2021-07-23] MEDS: HumaLOG INSULIN (NovoLOG) PER UNIT SC SCH ×5 (00:18→21:00)
[2021-07-23] MEDS: PANTOPRAZOLE 40MG VIAL (C9113 PER 1) IV SCH ×2 (00:18→22:20)
[2021-07-23] MEDS: SODIUM BICARBONATE 100 MEQ in D5W 1,000 ML IV SCH (03:21)
[2021-07-23 05:25] LABS: HEMATOCRIT 37.5 % (36.0-47.0); HEMOGLOBIN 12.2 g/dl (12.0-15.5); MEAN CORPUSCULAR HEMOGLOBIN 31.5 pg (27.0-33.0); MEAN CORPUSCULAR HGB CONC 32.5 g/dl (32.0-36.5); MEAN CORPUSCULAR VOLUME 96.9 fl (80.0-96.0); PLATELET COUNT, AUTOMATED 186 10^3/uL (150-450); RED BLOOD COUNT 3.87 10^6/uL (4.00-5.40); WHITE BLOOD COUNT 17.4 10^3/uL (4.0-10.0)
[2021-07-23] MEDS: PIPERACILLIN/TAZOBACTAM SOD 2.25 GM in D5W MINI-BAG PLUS 50 ML IV SCH ×3 (05:27→22:20)
[2021-07-23 05:44] LABS: ABG BASE EXCESS -18.5 (-2.0-2.0); ABG HCO3 8.5 MEQ/L (22.0-26.0); ABG O2 SATURATION 97.9 % (95.0-99.0); ABG PARTIAL PRESSURE CO2 24.4 mmHg (35.0-45.0); ABG PARTIAL PRESSURE O2 117.4 mmHg (75.0-100.0); ABG STANDARD HCO3 10.8 MEQ/L (22.0-26.0); ABG TOTAL CO2 9.3 MEQ/L (23.0-31.0)
[2021-07-23 05:48] LABS: CALCIUM LEVEL 8.3 MG/DL (8.8-10.2); CREATININE FOR GFR 6.95 MG/DL (0.55-1.30); GLOMERULAR FILTRATION RATE 6.1 (>32); MAGNESIUM LEVEL 2.6 MG/DL (1.8-2.4); POTASSIUM SERUM 5.9 MEQ/L (3.5-5.1)
[2021-07-23 05:48] LABS: ABG pH (ARTERIAL) 7.161 UNITS (7.350-7.450)
[2021-07-23 05:58] LABS: ATYPICAL LYMPH 9 % (0-5); LYMPHOCYTES 31 % (16-44); MONOCYTES 9 % (0-5); NEUTROPHILS 51 % (28-66); PLATELET ESTIMATE NORMAL (NORMAL)
[2021-07-23] MEDS: rifAXIMin 550 MG TAB (XIFAXAN) PO SCH ×2 (08:49→21:13)
[2021-07-23] MEDS: LACTOBACILLUS ACIDOPHILUS CAP (BACID) PO SCH (08:49)
[2021-07-23] MEDS: SODIUM BICARBONATE 150 MEQ in D5W 1,000 ML IV SCH ×2 (10:01→17:27)
[2021-07-23] MEDS ORDERED: LACTULOSE 20 GM/30 ML SYRUP UD PO ONE (12:10)
[2021-07-23] MEDS: HEPARIN SOD (PORCINE) 5000UNITS/ML 1ML VIAL/SYRINGE SQ SCH ×2 (13:19→21:13)
[2021-07-23 15:32] LABS: CALCIUM LEVEL 8.5 MG/DL (8.8-10.2); CREATININE FOR GFR 7.13 MG/DL (0.55-1.30); GLOMERULAR FILTRATION RATE 5.9 (>32); POTASSIUM SERUM 5.3 MEQ/L (3.5-5.1)
[2021-07-23] MEDS ORDERED: SODIUM CHLORIDE 0.9% 1000ML IV PRN (16:40)
[2021-07-24] VITALS (15 sets, daily range): BP systolic 69–99; BP diastolic 39–66
[2021-07-24] MEDS: SODIUM BICARBONATE 150 MEQ in D5W 1,000 ML IV SCH ×2 (02:10→09:06)
[2021-07-24 05:17] LABS: BASO % 0.2 % (0.0-1.0); EOS % 0.1 % (0.0-3.0); HEMATOCRIT 28.6 % (36.0-47.0); HEMOGLOBIN 9.8 g/dl (12.0-15.5); LYMPH # 3.4 10^3/uL (1.5-5.0); LYMPH % 29.5 % (24.0-44.0); MEAN CORPUSCULAR HEMOGLOBIN 31.4 pg (27.0-33.0); MEAN CORPUSCULAR HGB CONC 34.3 g/dl (32.0-36.5); MEAN CORPUSCULAR VOLUME 91.7 fl (80.0-96.0); MONO # 1.3 10^3/uL (0.0-0.8); MONO % 11.6 % (2.0-8.0); NEUTROPHILS # 6.7 10^3/uL (1.5-8.5); NEUTROPHILS % 58.3 % (36.0-66.0); PLATELET COUNT, AUTOMATED 110 10^3/uL (150-450); RED BLOOD COUNT 3.12 10^6/uL (4.00-5.40); WHITE BLOOD COUNT 11.5 10^3/uL (4.0-10.0)
[2021-07-24] MEDS: PIPERACILLIN/TAZOBACTAM SOD 2.25 GM in D5W MINI-BAG PLUS 50 ML IV SCH ×3 (05:32→23:00)
[2021-07-24 05:41] LABS: CREATININE FOR GFR 4.84 MG/DL (0.55-1.30); GLOMERULAR FILTRATION RATE 9.2 (>32)
[2021-07-24] MEDS ORDERED: SODIUM CHLORIDE 0.9% 1000ML IV PRN (06:00)
[2021-07-24 06:16] LABS: ALBUMIN 2.1 GM/DL (3.2-5.2)
[2021-07-24] MEDS: LACTOBACILLUS ACIDOPHILUS CAP (BACID) PO SCH (07:55)
[2021-07-24] MEDS: rifAXIMin 550 MG TAB (XIFAXAN) PO SCH ×2 (07:55→20:12)
[2021-07-24] MEDS: HumaLOG INSULIN (NovoLOG) PER UNIT SC SCH ×4 (07:55→20:13)
[2021-07-24] MEDS: HEPARIN SOD (PORCINE) 5000UNITS/ML 1ML VIAL/SYRINGE SQ SCH ×2 (07:55→20:12)
[2021-07-24 10:18] LABS: ABG BASE EXCESS 4.4 (-2.0-2.0); ABG O2 SATURATION 96.3 % (95.0-99.0); ABG PARTIAL PRESSURE CO2 37.9 mmHg (35.0-45.0); ABG PARTIAL PRESSURE O2 87.6 mmHg (75.0-100.0); ABG STANDARD HCO3 28.4 MEQ/L (22.0-26.0); ABG TOTAL CO2 29.1 MEQ/L (23.0-31.0); ABG pH (ARTERIAL) 7.486 UNITS (7.350-7.450)
[2021-07-24 14:12] LABS: HEPATITIS B CORE ANTIBODY IGM NEGATIVE (NEGATIVE); HEPATITIS B SURFACE ANTIBODY NEGATIVE (POSITIVE); HEPATITIS B SURFACE ANTIGEN NEGATIVE (NEGATIVE); HEPATITIS C VIRUS ABY INDEX 0.1 INDEX (<0.8)
[2021-07-24] MEDS ORDERED: SODIUM CHLORIDE 0.9% 1000ML IV ONE (23:00)
[2021-07-24] MEDS: PANTOPRAZOLE 40MG VIAL (C9113 PER 1) IV SCH (23:06)
[2021-07-25] VITALS (13 sets, daily range): BP systolic 73–112; BP diastolic 35–59
[2021-07-25 05:15] LABS: BASO % 0.4 % (0.0-1.0); EOS % 0.6 % (0.0-3.0); HEMATOCRIT 28.8 % (36.0-47.0); HEMOGLOBIN 9.9 g/dl (12.0-15.5); LYMPH # 2.2 10^3/uL (1.5-5.0); LYMPH % 31.8 % (24.0-44.0); MEAN CORPUSCULAR HEMOGLOBIN 31.2 pg (27.0-33.0); MEAN CORPUSCULAR HGB CONC 34.4 g/dl (32.0-36.5); MEAN CORPUSCULAR VOLUME 90.9 fl (80.0-96.0); MONO % 14.3 % (2.0-8.0); NEUTROPHILS # 3.7 10^3/uL (1.5-8.5); NEUTROPHILS % 52.8 % (36.0-66.0); RED BLOOD COUNT 3.17 10^6/uL (4.00-5.40); WHITE BLOOD COUNT 6.9 10^3/uL (4.0-10.0)
[2021-07-25 05:34] LABS: CALCIUM LEVEL 6.9 MG/DL (8.8-10.2); CREATININE FOR GFR 3.24 MG/DL (0.55-1.30); GLOMERULAR FILTRATION RATE 14.6 (>32); POTASSIUM SERUM 3.1 MEQ/L (3.5-5.1)
[2021-07-25 05:42] LABS: PLATELET COUNT, AUTOMATED 86 10^3/uL (150-450)
[2021-07-25 05:57] LABS: MAGNESIUM LEVEL 1.8 MG/DL (1.8-2.4)
[2021-07-25] MEDS: PIPERACILLIN/TAZOBACTAM SOD 2.25 GM in D5W MINI-BAG PLUS 50 ML IV SCH (06:21)
[2021-07-25] MEDS ORDERED: POTASSIUM CHLORIDE 10MEQ SR TABLET PO ONE (07:00)
[2021-07-25] MEDS: HumaLOG INSULIN (NovoLOG) PER UNIT SC SCH ×4 (08:23→20:14)
[2021-07-25] MEDS: LACTOBACILLUS ACIDOPHILUS CAP (BACID) PO SCH (08:24)
[2021-07-25] MEDS: rifAXIMin 550 MG TAB (XIFAXAN) PO SCH ×2 (08:25→20:49)
[2021-07-25] MEDS: HEPARIN SOD (PORCINE) 5000UNITS/ML 1ML VIAL/SYRINGE SQ SCH (09:00)
[2021-07-25] MEDS: KCL 20MEQ in NS 1000ML 1,000 ML IV SCH ×2 (09:52→22:38)
[2021-07-25] MEDS: MIDODRINE 2.5 MG TAB PO SCH ×3 (09:53→16:50)
[2021-07-25] MEDS ORDERED: cefTRIAXone SOD 1 GM in D5W MINI-BAG PLUS 50 ML IV SCH (11:00)
[2021-07-25] MEDS: cefTRIAXone SOD 1 GM in D5W MINI-BAG PLUS 50 ML IV SCH (11:16)
[2021-07-25] MEDS: PANTOPRAZOLE 40MG VIAL (C9113 PER 1) IV SCH (23:00)
[2021-07-26 00:50] VITALS: BP 101/53
[2021-07-26 05:05] VITALS: BP 100/56
[2021-07-26] MEDS: LACTOBACILLUS ACIDOPHILUS CAP (BACID) PO SCH (06:00)
[2021-07-26] MEDS: rifAXIMin 550 MG TAB (XIFAXAN) PO SCH ×2 (06:00→21:06)
[2021-07-26] MEDS: MIDODRINE 2.5 MG TAB PO SCH ×3 (06:00→16:00)
[2021-07-26] MEDS ORDERED: SODIUM CHLORIDE 0.9% 1000ML IV PRN (06:00)
[2021-07-26] MEDS: HumaLOG INSULIN (NovoLOG) PER UNIT SC SCH ×4 (06:05→20:47)
[2021-07-26 06:38] LABS: CALCIUM LEVEL 6.9 MG/DL (8.8-10.2); CREATININE FOR GFR 3.8 MG/DL (0.55-1.30); GLOMERULAR FILTRATION RATE 12.2 (>32); POTASSIUM SERUM 3.8 MEQ/L (3.5-5.1)
[2021-07-26 08:20] VITALS: BP 100/54
[2021-07-26 13:01] VITALS: BP 150/80
[2021-07-26] MEDS: cefTRIAXone SOD 1 GM in D5W MINI-BAG PLUS 50 ML IV SCH (13:03)
[2021-07-26] MEDS: KCL 20MEQ in NS 1000ML 1,000 ML IV SCH (13:06)
[2021-07-26] MEDS ORDERED: PILL CUTTER 1 EACH XX PRN (15:00)
[2021-07-26 16:10] VITALS: BP 140/68
[2021-07-26 19:33] VITALS: BP 159/79
[2021-07-26] MEDS ORDERED: IPRATROPIUM 0.5MG/ALBUTEROL 2.5MG INH SOL UD 3ML (DUONEB) NEB ONE (20:00)
[2021-07-26] MEDS ORDERED: traMADol 50 MG TAB PO ONE (20:25)
[2021-07-26] MEDS: DULoxetine 30MG CAPSULE (CYMBALTA) PO SCH (21:07)
[2021-07-26] MEDS: PANTOPRAZOLE 40MG VIAL (C9113 PER 1) IV SCH (23:45)
[2021-07-27] VITALS: BP 110/58
[2021-07-27] MEDS: KCL 20MEQ in NS 1000ML 1,000 ML IV SCH (01:05)
[2021-07-27 04:00] VITALS: BP 120/53
[2021-07-27 07:16] LABS: HEMATOCRIT 31.8 % (36.0-47.0); HEMOGLOBIN 10.8 g/dl (12.0-15.5); MEAN CORPUSCULAR HEMOGLOBIN 31.4 pg (27.0-33.0); MEAN CORPUSCULAR VOLUME 92.4 fl (80.0-96.0); RED BLOOD COUNT 3.44 10^6/uL (4.00-5.40); WHITE BLOOD COUNT 8.4 10^3/uL (4.0-10.0)
[2021-07-27 07:17] LABS: PLATELET COUNT, AUTOMATED 94 10^3/uL (150-450)
[2021-07-27 07:29] LABS: CALCIUM LEVEL 7.3 MG/DL (8.8-10.2); CREATININE FOR GFR 1.99 MG/DL (0.55-1.30); GLOMERULAR FILTRATION RATE 25.7 (>32); POTASSIUM SERUM 3.5 MEQ/L (3.5-5.1)
[2021-07-27 08:00] VITALS: BP 159/72
[2021-07-27] MEDS: PRAVASTATIN 10 MG TAB PO SCH (09:17)
[2021-07-27] MEDS: HumaLOG INSULIN (NovoLOG) PER UNIT SC SCH ×4 (09:17→20:21)
[2021-07-27] MEDS: LACTOBACILLUS ACIDOPHILUS CAP (BACID) PO SCH (09:17)
[2021-07-27] MEDS: cefTRIAXone SOD 1 GM in D5W MINI-BAG PLUS 50 ML IV SCH (10:37)
[2021-07-27] MEDS: rifAXIMin 550 MG TAB (XIFAXAN) PO SCH ×2 (10:37→20:16)
[2021-07-27 12:00] VITALS: BP 122/58
[2021-07-27 16:00] VITALS: BP 130/58
[2021-07-27 20:11] VITALS: BP_SYST 135; BP_SYST 138; BP_DIAS 65; BP_DIAS 67
[2021-07-27] MEDS: DULoxetine 30MG CAPSULE (CYMBALTA) PO SCH (20:16)
[2021-07-27] MEDS ORDERED: traMADol 50 MG TAB PO ONE (23:55)
[2021-07-28 00:10] VITALS: BP 116/59
[2021-07-28] MEDS: PANTOPRAZOLE 40MG VIAL (C9113 PER 1) IV SCH ×2 (00:32→22:19)
[2021-07-28 04:13] VITALS: BP 113/55
[2021-07-28 08:00] VITALS: BP 152/70
[2021-07-28] MEDS: CEPHALEXIN 250MG CAPSULE PO SCH ×3 (08:13→20:29)
[2021-07-28] MEDS: PRAVASTATIN 10 MG TAB PO SCH (08:13)
[2021-07-28] MEDS: rifAXIMin 550 MG TAB (XIFAXAN) PO SCH (08:13)
[2021-07-28] MEDS: LACTOBACILLUS ACIDOPHILUS CAP (BACID) PO SCH (08:13)
[2021-07-28 08:24] LABS: HEMATOCRIT 33.1 % (36.0-47.0); HEMOGLOBIN 11.2 g/dl (12.0-15.5); MEAN CORPUSCULAR HEMOGLOBIN 30.8 pg (27.0-33.0); MEAN CORPUSCULAR HGB CONC 33.8 g/dl (32.0-36.5); MEAN CORPUSCULAR VOLUME 90.9 fl (80.0-96.0); RED BLOOD COUNT 3.64 10^6/uL (4.00-5.40); WHITE BLOOD COUNT 6.9 10^3/uL (4.0-10.0)
[2021-07-28 08:26] LABS: PLATELET COUNT, AUTOMATED 92 10^3/uL (150-450)
[2021-07-28 08:53] LABS: CALCIUM LEVEL 7.1 MG/DL (8.8-10.2); CREATININE FOR GFR 1.73 MG/DL (0.55-1.30); GLOMERULAR FILTRATION RATE 30.2 (>32); POTASSIUM SERUM 3.3 MEQ/L (3.5-5.1)
[2021-07-28] MEDS: HumaLOG INSULIN (NovoLOG) PER UNIT SC SCH ×4 (09:26→20:21)
[2021-07-28] MEDS ORDERED: POTASSIUM CHLORIDE 10MEQ SR TABLET PO ONE (09:35)
[2021-07-28] MEDS: LACTULOSE 20 GM/30 ML SYRUP UD PO SCH ×2 (14:14→20:28)
[2021-07-28 16:00] VITALS: BP 133/62
[2021-07-28] MEDS ORDERED: FUROSEMIDE 40MG/4ML VIAL (J1940) IV ONE (16:15)
[2021-07-28] MEDS: SODIUM CHLORIDE 0.9% NASAL GEL 15GM (AYR) SCH ×2 (17:00→20:29)
[2021-07-28] MEDS: NYSTATIN 500,000 U/5 ML SUSP UDC SS SCH ×2 (17:48→23:11)
[2021-07-28] MEDS: DULoxetine 30MG CAPSULE (CYMBALTA) PO SCH (20:29)
[2021-07-28] MEDS ORDERED: traMADol 50 MG TAB PO ONE (22:00)
[2021-07-28] MEDS ORDERED: LIDOCAINE 5% (LIDODERM) PATCH TD ONE (23:00)
[2021-07-28 23:41] VITALS: BP 136/63
[2021-07-29 03:55] VITALS: BP 127/58
[2021-07-29 06:03] LABS: HEMATOCRIT 31.6 % (36.0-47.0); HEMOGLOBIN 10.9 g/dl (12.0-15.5); MEAN CORPUSCULAR HEMOGLOBIN 31.1 pg (27.0-33.0); MEAN CORPUSCULAR HGB CONC 34.5 g/dl (32.0-36.5); MEAN CORPUSCULAR VOLUME 90.3 fl (80.0-96.0); WHITE BLOOD COUNT 6.7 10^3/uL (4.0-10.0)
[2021-07-29] MEDS: NYSTATIN 500,000 U/5 ML SUSP UDC SS SCH ×2 (06:12→12:18)
[2021-07-29 06:19] LABS: PLATELET COUNT, AUTOMATED 87 10^3/uL (150-450)
[2021-07-29 06:22] LABS: CREATININE FOR GFR 1.53 MG/DL (0.55-1.30); GLOMERULAR FILTRATION RATE 34.8 (>32); POTASSIUM SERUM 3.2 MEQ/L (3.5-5.1)
[2021-07-29] MEDS ORDERED: POTASSIUM CHLORIDE 10MEQ SR TABLET PO ONE ×2 (07:45→12:00)
[2021-07-29 08:00] VITALS: BP 130/64
[2021-07-29] MEDS: LACTULOSE 20 GM/30 ML SYRUP UD PO SCH (08:53)
[2021-07-29] MEDS: HumaLOG INSULIN (NovoLOG) PER UNIT SC SCH ×2 (08:53→12:19)
[2021-07-29] MEDS: CEPHALEXIN 250MG CAPSULE PO SCH (08:54)
[2021-07-29] MEDS: SODIUM CHLORIDE 0.9% NASAL GEL 15GM (AYR) SCH ×2 (08:54→12:19)
[2021-07-29] MEDS: PRAVASTATIN 10 MG TAB PO SCH (08:54)
[2021-07-29] MEDS: LACTOBACILLUS ACIDOPHILUS CAP (BACID) PO SCH (08:54)
[2021-07-29] MEDS ORDERED: **NOTE PATIENT COMMENT** MISC XX ONE (11:00)
[2021-07-29] MEDS ORDERED: NYST50SS SS (11:46)
[2021-07-29] MEDS ORDERED: RISATAB3 PO (11:46)
[2021-07-29] MEDS ORDERED: CEPH250T PO (11:46)
[2021-07-29] MEDS ORDERED: SPIRONOLACTONE 50 MG TAB PO ONE (13:20)
== END 2021-07-29 13:59 | disposition home health service (06) | DRG 871 ==
LOC: M ED 15:58 → M ICU 19:47 → ENRESERV 20:15 → M ICU 21:50 → M PCU 07-25 18:28
PROVIDERS: ADMIT Family Medicine; ATTEND Internal Medicine
PROC: 06HM33Z Insertion of Infusion Device into Right Femoral Vein, Percutaneous Approach (ICD-10-PCS; principal; 2021-07-23)
PROC: 5A1D70Z Performance of Urinary Filtration, Intermittent, Less than 6 Hours Per Day (ICD-10-PCS; 2021-07-23)
DX: A41.9 Sepsis, unspecified organism (principal); G93.41 Metabolic encephalopathy; N17.9 Acute kidney failure, unspecified; E87.2 Acidosis; E87.1 Hypo-osmolality and hyponatremia; E72.20 Disorder of urea cycle metabolism, unspecified; N10 Acute pyelonephritis; E11.649 Type 2 diabetes mellitus with hypoglycemia without coma; I10 Essential (primary) hypertension; E78.5 Hyperlipidemia, unspecified; E87.5 Hyperkalemia; M19.90 Unspecified osteoarthritis, unspecified site; R65.20 Severe sepsis without septic shock; K76.0 Fatty (change of) liver, not elsewhere classified; K74.60 Unspecified cirrhosis of liver; D64.9 Anemia, unspecified; B96.20 Unspecified Escherichia coli [E. coli] as the cause of diseases classified elsewhere; K72.90 Hepatic failure, unspecified without coma; D69.6 Thrombocytopenia, unspecified; E87.6 Hypokalemia; E86.0 Dehydration; M48.00 Spinal stenosis, site unspecified; E11.42 Type 2 diabetes mellitus with diabetic polyneuropathy; Z85.528 Personal history of other malignant neoplasm of kidney; Z96.651 Presence of right artificial knee joint; Z98.41 Cataract extraction status, right eye; Z98.42 Cataract extraction status, left eye; Z86.010 Personal history of colon polyps; Z79.84 Long term (current) use of oral hypoglycemic drugs; Z79.899 Other long term (current) drug therapy; Z88.5 Allergy status to narcotic agent

== ENCOUNTER → 2021-08-07 | Outpatient (REF) | payer MEDICARE ==
[~2021-08-07] MED LIST changes: +CEPH250T PO; +DULO30CA47 PO; +ENUL10SO PO; +LASI40TA9 PO; +MIRA0.5T PO; +MORP-69 PO; +NYST50SS SS; +PROC5TAB57 PO; +RISATAB3 PO
[2021-08-07 17:35] LABS: PERCENT SATURATION 26.5 % (13.2-45.0)
== END ==
LOC: M LAB REF 16:57
PROVIDERS: ATTEND Internal Medicine Nephrology
DX: D50.9 Iron deficiency anemia, unspecified (principal)

== ENCOUNTER → 2021-10-22 | Outpatient (CLI) | payer MEDICARE ==
[2021-10-22 11:09] LABS: ALBUMIN 3.2 GM/DL (3.2-5.2); ALT/SGPT 33 U/L (12-78); BILIRUBIN,TOTAL 1.2 MG/DL (0.2-1.0); BLOOD UREA NITROGEN 15 MG/DL (7-18); CALCIUM LEVEL 8.9 MG/DL (8.8-10.2); CARBON DIOXIDE LEVEL 29 MEQ/L (21-32); CHLORIDE LEVEL 107 MEQ/L (98-107); CREATININE FOR GFR 0.78 MG/DL (0.55-1.30); GLOMERULAR FILTRATION RATE > 60.0 (>32); GLUCOSE, FASTING 127 MG/DL (70-100); POTASSIUM SERUM 3.9 MEQ/L (3.5-5.1); SODIUM LEVEL 140 MEQ/L (136-145)
[2021-10-22 12:59] LABS: HEMOGLOBIN A1c 6.2 %
== END ==
LOC: M PLALAB 07:11
PROVIDERS: ATTEND Internal Medicine
DX: E11.9 Type 2 diabetes mellitus without complications (principal)

== ENCOUNTER → 2021-11-29 | Outpatient (CLI) | payer MEDICARE ==
[~2021-11-29] VITALS: Ht 152.4 cm; Wt 65.3 kg
[2021-11-29 13:22] VITALS: BP 169/90
== END ==
LOC: M PAL 13:03
PROVIDERS: ATTEND Nurse Practitioner Adult Health
DX: K76.0 Fatty (change of) liver, not elsewhere classified (principal); Z85.528 Personal history of other malignant neoplasm of kidney; M96.1 Postlaminectomy syndrome, not elsewhere classified; G62.9 Polyneuropathy, unspecified; G89.29 Other chronic pain; M54.2 Cervicalgia; M25.559 Pain in unspecified hip; K74.60 Unspecified cirrhosis of liver; I10 Essential (primary) hypertension; K76.6 Portal hypertension; E11.9 Type 2 diabetes mellitus without complications; I85.01 Esophageal varices with bleeding; Z88.5 Allergy status to narcotic agent; Z79.899 Other long term (current) drug therapy

== ENCOUNTER → 2021-12-06 | Outpatient (CLI) | payer MEDICARE | LOC: M RAD 08:00 | PROVIDERS: ATTEND Internal Medicine Gastroenterology | DX: K74.60 Unspecified cirrhosis of liver (principal) ==

== ENCOUNTER → 2021-12-12 | Outpatient (CLI) | payer MEDICARE ==
[2021-12-12 11:06] LABS: ALBUMIN 2.9 GM/DL (3.2-5.2); BILIRUBIN,DIRECT 0.3 MG/DL (0.0-0.2); BILIRUBIN,TOTAL 0.9 MG/DL (0.2-1.0); TOTAL PROTEIN 6.5 GM/DL (6.4-8.2)
== END ==
LOC: M PLALAB 07:14
PROVIDERS: ATTEND Internal Medicine Gastroenterology
DX: K74.60 Unspecified cirrhosis of liver (principal)

== ENCOUNTER → 2021-12-27 | Outpatient (CLI) | payer MEDICARE ==
[~2021-12-27] VITALS: Ht 152.4 cm; Wt 64.9 kg
[~2021-12-27] MED LIST changes: +CALC500C16 PO; +CANNABIDIOL TOP; +CBD OIL PO; +DEXA4TA PO; +FISH1000 PO; +FOLI400T13 PO; +FURO40TA2; +K-TA10TA2 PO; +ROPI0.5T3 PO; +THC GUMMIES PO
[2021-12-27 13:07] VITALS: BP 166/98
== END ==
LOC: M PAL 12:57
PROVIDERS: ATTEND Nurse Practitioner Adult Health
DX: R10.11 Right upper quadrant pain (principal); K76.0 Fatty (change of) liver, not elsewhere classified; Z85.528 Personal history of other malignant neoplasm of kidney; G89.29 Other chronic pain; M54.2 Cervicalgia; M48.00 Spinal stenosis, site unspecified; M96.1 Postlaminectomy syndrome, not elsewhere classified; I85.00 Esophageal varices without bleeding; E11.40 Type 2 diabetes mellitus with diabetic neuropathy, unspecified; K76.6 Portal hypertension; I10 Essential (primary) hypertension; G25.81 Restless legs syndrome; K58.9 Irritable bowel syndrome, unspecified; M81.0 Age-related osteoporosis without current pathological fracture; Z88.5 Allergy status to narcotic agent; Z79.899 Other long term (current) drug therapy; K74.60 Unspecified cirrhosis of liver; F41.9 Anxiety disorder, unspecified; M19.90 Unspecified osteoarthritis, unspecified site; Z86.018 Personal history of other benign neoplasm; M25.559 Pain in unspecified hip

== ENCOUNTER → 2021-12-31 | Outpatient (CLI) | payer MEDICARE | LOC: M LABSMTC 09:02 | PROVIDERS: ATTEND Anesthesiology | DX: Z11.52 Encounter for screening for COVID-19 (principal) ==

== ENCOUNTER 2022-01-03 06:35 | Day surgery (SDC) | payer MEDICARE ==
[~2022-01-03] VITALS: Ht 152.4 cm; Wt 61.7 kg
[~2022-01-03 06:35] MED LIST changes: +NS 1,000 ML IV ONE
[2022-01-03] MEDS ORDERED: LIDOCAINE 2% 100MG/5ML SDV (FOR ANES.) As Ordered ONE (07:48)
[2022-01-03] MEDS ORDERED: propofoL 200 MG/20 ML VIAL As Ordered ONE (07:48)
[2022-01-03] MEDS ORDERED: hydrALAZINE 20MG/ML 1ML VIAL (J0360 PER 20MG) As Ordered ONE (07:49)
[2022-01-03 08:29] VITALS: BP 195/78
== END 2022-01-03 08:45 | disposition home or self-care (01) ==
LOC: M OPP 06:35
PROVIDERS: ATTEND Internal Medicine Gastroenterology
DX: D12.5 Benign neoplasm of sigmoid colon (principal); D12.2 Benign neoplasm of ascending colon; K57.30 Diverticulosis of large intestine without perforation or abscess without bleeding; K64.4 Residual hemorrhoidal skin tags; K64.8 Other hemorrhoids; Z80.0 Family history of malignant neoplasm of digestive organs; R93.3 Abnormal findings on diagnostic imaging of other parts of digestive tract; Z79.1 Long term (current) use of non-steroidal anti-inflammatories (NSAID); Z79.2 Long term (current) use of antibiotics; Z79.83 Long term (current) use of bisphosphonates; Z79.84 Long term (current) use of oral hypoglycemic drugs; Z79.899 Other long term (current) drug therapy; Z88.5 Allergy status to narcotic agent; I10 Essential (primary) hypertension; E11.9 Type 2 diabetes mellitus without complications; F41.9 Anxiety disorder, unspecified; G56.93 Unspecified mononeuropathy of bilateral upper limbs; G57.93 Unspecified mononeuropathy of bilateral lower limbs; K74.60 Unspecified cirrhosis of liver; Z86.39 Personal history of other endocrine, nutritional and metabolic disease; Z87.448 Personal history of other diseases of urinary system
CPT/HCPCS: 45380; 88305; J0360

== ENCOUNTER 2022-01-14 07:35 | Outpatient (RCR) | payer MEDICARE ==
[~2022-01-14 07:35] MED LIST changes: -NS 1,000 ML IV ONE
== END 2022-01-16 ==
LOC: M PT 07:35
PROVIDERS: ATTEND Internal Medicine Hematology
DX: M19.90 Unspecified osteoarthritis, unspecified site (principal); M48.00 Spinal stenosis, site unspecified

== ENCOUNTER → 2022-02-07 | Outpatient (CLI) | payer MEDICARE | LOC: M PAL 11:30 | PROVIDERS: ATTEND Nurse Practitioner Family | DX: K74.60 Unspecified cirrhosis of liver (principal); M48.00 Spinal stenosis, site unspecified; K76.6 Portal hypertension; M25.551 Pain in right hip; M25.552 Pain in left hip; R26.81 Unsteadiness on feet; Z51.5 Encounter for palliative care; Z79.899 Other long term (current) drug therapy; Z88.5 Allergy status to narcotic agent ==

== ENCOUNTER 2022-02-14 07:39 | Outpatient (RCR) | payer MEDICARE | END 2022-02-15 | LOC: M PT 07:39 | PROVIDERS: ATTEND Internal Medicine Hematology | DX: M19.90 Unspecified osteoarthritis, unspecified site (principal); M48.00 Spinal stenosis, site unspecified ==

== ENCOUNTER 2022-03-07 07:41 | Outpatient (RCR) | payer MEDICARE | END 2022-03-18 | LOC: M PT 07:41 | PROVIDERS: ATTEND Internal Medicine Hematology | DX: M19.90 Unspecified osteoarthritis, unspecified site (principal); M48.00 Spinal stenosis, site unspecified ==

== ENCOUNTER → 2022-04-02 | Outpatient (CLI) | payer MEDICARE ==
[~2022-04-02] VITALS: Ht 152.4 cm
[2022-04-02 13:06] VITALS: BP 179/102
== END ==
LOC: M PAL 12:51
PROVIDERS: ATTEND Nurse Practitioner Adult Health
DX: K74.60 Unspecified cirrhosis of liver (principal); C64.9 Malignant neoplasm of unspecified kidney, except renal pelvis; G89.29 Other chronic pain; E11.9 Type 2 diabetes mellitus without complications; I10 Essential (primary) hypertension; K72.90 Hepatic failure, unspecified without coma; K76.0 Fatty (change of) liver, not elsewhere classified; M54.50 Low back pain, unspecified; M25.551 Pain in right hip; M25.552 Pain in left hip; M48.00 Spinal stenosis, site unspecified; M54.2 Cervicalgia; M96.1 Postlaminectomy syndrome, not elsewhere classified; R53.83 Other fatigue; R06.02 Shortness of breath; M19.90 Unspecified osteoarthritis, unspecified site; Z51.5 Encounter for palliative care; Z90.710 Acquired absence of both cervix and uterus; Z96.651 Presence of right artificial knee joint; Z88.5 Allergy status to narcotic agent; Z80.9 Family history of malignant neoplasm, unspecified; Z79.899 Other long term (current) drug therapy; Z79.890 Hormone replacement therapy

== ENCOUNTER 2022-04-15 09:59 | Inpatient (IN) | payer MEDICARE ==
[~2022-04-15] VITALS: Ht 152.4 cm; Wt 63.1 kg
[~2022-04-15 09:59] MED LIST changes: -FURO40TA2
[2022-04-15] MEDS ORDERED: NS 1,000 ML IV SCH (10:40)
[2022-04-15] MEDS ORDERED: NS 1,000 ML IV ONE (10:40)
[2022-04-15] MEDS ORDERED: NS 500 ML IV ONE (10:40)
[2022-04-15] MEDS ORDERED: ISOVUE-370 76% 100ML VIAL As Ordered ONE (11:03)
[2022-04-15 11:19] LABS: BASO % 0.1 % (0.0-1.0); EOS % 0.1 % (0.0-3.0); HEMATOCRIT 40.2 % (36.0-47.0); HEMOGLOBIN 14.3 g/dl (12.0-15.5); LYMPH # 2.1 10^3/uL (1.5-5.0); LYMPH % 21.3 % (24.0-44.0); MEAN CORPUSCULAR HEMOGLOBIN 32.4 pg (27.0-33.0); MEAN CORPUSCULAR HGB CONC 35.6 g/dl (32.0-36.5); MONO # 0.7 10^3/uL (0.0-0.8); MONO % 7.4 % (2.0-8.0); NEUTROPHILS % 70.6 % (36.0-66.0); PLATELET COUNT, AUTOMATED 128 10^3/uL (150-450); RED BLOOD COUNT 4.42 10^6/uL (4.00-5.40); WHITE BLOOD COUNT 9.9 10^3/uL (4.0-10.0)
[2022-04-15 11:28] LABS: INR 1.13; PROTHROMBIN TIME 14.7 SECONDS (12.5-14.5)
[2022-04-15 11:29] LABS: PARTIAL THROMBOPLASTIN TIME 26.9 SECONDS (24.8-34.2)
[2022-04-15 12:13] LABS: RSV AMPLIFICATION NEGATIVE (NEGATIVE)
[2022-04-15 12:45] LABS: CHLORIDE LEVEL 99 MMOL/L (98-107); HCG, SERUM QUALITATIVE NEGATIVE (NEGATIVE); SODIUM LEVEL 131 MMOL/L (136-145)
[2022-04-15 12:46] LABS: CARBON DIOXIDE LEVEL 19 MMOL/L (20-31)
[2022-04-15 12:46] LABS: BARBITURATES URINE NEGATIVE (NEGATIVE); BENZODIAZEPINES URINE NEGATIVE (NEGATIVE); METHADONE URINE NEGATIVE (NEGATIVE)
[2022-04-15 12:47] LABS: COCAINE METABOLITE URINE NEGATIVE (NEGATIVE); PHENCYCLIDINE URINE NEGATIVE (NEGATIVE)
[2022-04-15] MEDS ORDERED: HumuLIN R (REGULAR) INSULIN (NovoLIN R) **100U/ML** PER UNIT IV ONE (12:50)
[2022-04-15 12:51] LABS: CK-MB VALUE MASS 2.2 NG/ML (<3.6)
[2022-04-15 12:52] LABS: BLOOD UREA NITROGEN 24 MG/DL (9-23); CALCIUM LEVEL 8.2 MG/DL (8.3-10.6)
[2022-04-15 12:54] LABS: CREATININE FOR GFR 0.59 MG/DL (0.55-1.30); GLOMERULAR FILTRATION RATE > 60.0 (>32)
[2022-04-15 13:07] LABS: CPK CREATINE PHOSPHOKINASE 93 U/L (34-145); GLUCOSE, FASTING 629 MG/DL (74-106); MB/CK RELATIVE INDEX 2.36 (< OR =4); POTASSIUM SERUM 4.2 MMOL/L (3.5-5.1)
[2022-04-15 13:12] LABS: AMPHETAMINES LEVEL URINE POSITIVE (NEGATIVE); CANNABINOIDS URINE POSITIVE (NEGATIVE); OPIATES URINE POSITIVE (NEGATIVE)
[2022-04-15 13:30] LABS: ALBUMIN 2.9 G/DL (3.2-5.2)
[2022-04-15 13:35] LABS: ALKALINE PHOSPHATASE 65 U/L (46-116); ETHYL ALCOHOL (ETHANOL) 0.005 % (0.000-0.010)
[2022-04-15 13:37] LABS: ALT/SGPT 45 U/L (7.0-40); AST/SGOT 30 U/L (<34); BILIRUBIN,DIRECT 0.5 MG/DL (<0.4); BILIRUBIN,TOTAL 2.3 MG/DL (0.3-1.2); SALICYLATE LEVEL < 3.0 MG/DL (<30); TOTAL PROTEIN 6.1 G/DL (5.7-8.2)
[2022-04-15 13:40] LABS: THYROID STIMULATING HORMONE 0.616 uIU/ML (0.55-4.78)
[2022-04-15 13:44] LABS: ACETAMINOPHEN LEVEL < 2.0 UG/ML (10.0-20.0)
[2022-04-15] MEDS ORDERED: MOM 30ML SUSPENSION UDC PO PRN (15:10)
[2022-04-15 15:11] LABS: ABG BASE EXCESS -2.4 (-2.0-2.0); ABG HCO3 20.3 MEQ/L (22.0-26.0); ABG O2 SATURATION 98.3 % (95.0-99.0); ABG PARTIAL PRESSURE CO2 29.6 mmHg (35.0-45.0); ABG PARTIAL PRESSURE O2 109.1 mmHg (75.0-100.0); ABG STANDARD HCO3 22.5 MEQ/L (22.0-26.0); ABG TOTAL CO2 21.3 MEQ/L (23.0-31.0); ABG pH (ARTERIAL) 7.455 UNITS (7.350-7.450)
[2022-04-15] MEDS ORDERED: ASPIRIN 81MG CHEW TABLET PO ONE (15:20)
[2022-04-15] MEDS ORDERED: ATORVASTATIN 20 MG TAB PO ONE (15:20)
[2022-04-15] MEDS ORDERED: HumuLIN R (REGULAR) INSULIN (NovoLIN R) **100U/ML** PER UNIT IV STA (15:23)
[2022-04-15] MEDS ORDERED: GLUCOSE 4GM CHEW TABLET PO PRN (15:25)
[2022-04-15] MEDS: NS 1,000 ML IV SCH (15:25)
[2022-04-15] MEDS ORDERED: GLUCAGON INJ 1MG VIAL SC PRN (15:25)
[2022-04-15] MEDS ORDERED: CBD PO (15:52)
[2022-04-15] MEDS ORDERED: FOLI1TAB11 PO (15:52)
[2022-04-15] MEDS ORDERED: CBD GUMMIES PO (15:52)
[2022-04-15] MEDS ORDERED: OMEG10002 PO (15:52)
[2022-04-15] MEDS ORDERED: D3 S20002 PO (15:52)
[2022-04-15] MEDS ORDERED: CYAN100050 PO (15:52)
[2022-04-15] MEDS ORDERED: HOME MED LIST COMPLETE! XX SCH (15:55)
[2022-04-15] MEDS: LACTULOSE 20 GM/30 ML SYRUP UD PO SCH ×2 (17:08→20:57)
[2022-04-15] MEDS: INSULIN LISPRO (NovoLOG) PER UNIT SC SCH ×2 (17:30→20:58)
[2022-04-15] MEDS ORDERED: PILL CUTTER 1 EACH XX PRN (18:10)
[2022-04-15] MEDS ORDERED: hydrALAZINE 20MG/ML 1ML VIAL IV ONE (19:20)
[2022-04-15] MEDS ORDERED: LOSARTAN 25 MG TAB PO ONE (19:20)
[2022-04-15 20:00] VITALS: BP 180/76
[2022-04-15 20:11] LABS: HEMOGLOBIN A1c 9.5 % (4.0-6.0)
[2022-04-15 20:24] LABS: CHLORIDE LEVEL 104 MMOL/L (98-107); POTASSIUM SERUM 3.6 MMOL/L (3.5-5.1); SODIUM LEVEL 137 MMOL/L (136-145)
[2022-04-15 20:25] LABS: CARBON DIOXIDE LEVEL 19 MMOL/L (20-31)
[2022-04-15 20:30] VITALS: BP 180/76; O2SAT 99
[2022-04-15 20:30] LABS: BLOOD UREA NITROGEN 18 MG/DL (9-23); CALCIUM LEVEL 8.2 MG/DL (8.3-10.6); GLUCOSE, FASTING 366 MG/DL (74-106)
[2022-04-15 20:32] LABS: CHOLESTEROL LEVEL 193 MG/DL (<200); CHOLESTEROL RISK RATIO 3.33 (<5); CREATININE FOR GFR 0.52 MG/DL (0.55-1.30); GLOMERULAR FILTRATION RATE > 60.0 (>32); HDL CHOLESTEROL 57.9 MG/DL (>40); NON-HDL-C 135 MG/DL
[2022-04-15 20:40] LABS: LDL CHOLESTEROL 114.9 MG/DL (<100); TRIGLYCERIDES LEVEL 101 MG/DL (<150)
[2022-04-15] MEDS: GABAPENTIN 300 MG CAP PO SCH (20:58)
[2022-04-15] MEDS: rOPINIRole 1MG TAB PO SCH (20:58)
[2022-04-15] MEDS: DULoxetine 30MG CAPSULE (CYMBALTA) PO SCH (20:58)
[2022-04-15] MEDS: HEPARIN SOD (PORCINE) 5000UNITS/ML 1ML VIAL/SYRINGE SC SCH (20:58)
[2022-04-15 22:00] VITALS: BP 176/73
[2022-04-15] MEDS ORDERED: LEVEMIR (INSULIN DETEMIR) 1 UNITS/0.01ML SC ONE (23:00)
[2022-04-15 23:53] VITALS: BP 164/79
[2022-04-16] VITALS (18 sets, daily range): BP systolic 113–165; BP diastolic 62–92; O2SAT 92–98
[2022-04-16] MEDS: NS 1,000 ML IV SCH (02:13)
[2022-04-16 05:56] LABS: HEMATOCRIT 36.7 % (36.0-47.0); HEMOGLOBIN 12.9 g/dl (12.0-15.5); MEAN CORPUSCULAR HEMOGLOBIN 32.3 pg (27.0-33.0); MEAN CORPUSCULAR HGB CONC 35.1 g/dl (32.0-36.5); PLATELET COUNT, AUTOMATED 102 10^3/uL (150-450); RED BLOOD COUNT 3.99 10^6/uL (4.00-5.40); WHITE BLOOD COUNT 9.5 10^3/uL (4.0-10.0)
[2022-04-16 06:21] LABS: CHLORIDE LEVEL 106 MMOL/L (98-107); POTASSIUM SERUM 3.7 MMOL/L (3.5-5.1); SODIUM LEVEL 137 MMOL/L (136-145)
[2022-04-16 06:22] LABS: ALBUMIN 2.7 G/DL (3.2-5.2); CARBON DIOXIDE LEVEL 21 MMOL/L (20-31)
[2022-04-16 06:27] LABS: BLOOD UREA NITROGEN 17 MG/DL (9-23); CALCIUM LEVEL 7.5 MG/DL (8.3-10.6); GLUCOSE, FASTING 280 MG/DL (74-106)
[2022-04-16 06:28] LABS: ALKALINE PHOSPHATASE 53 U/L (46-116)
[2022-04-16 06:29] LABS: ALT/SGPT 42 U/L (7.0-40); AST/SGOT 23 U/L (<34); BILIRUBIN,TOTAL 2.3 MG/DL (0.3-1.2); CREATININE FOR GFR 0.58 MG/DL (0.55-1.30); GLOMERULAR FILTRATION RATE > 60.0 (>32)
[2022-04-16 06:30] LABS: TOTAL PROTEIN 5.4 G/DL (5.7-8.2)
[2022-04-16] MEDS ORDERED: ACETAMINOPHEN 500 MG TAB PO PRN (08:00)
[2022-04-16] MEDS: INSULIN LISPRO (NovoLOG) PER UNIT SC SCH ×4 (08:36→21:16)
[2022-04-16] MEDS: NADOLOL 20MG TABLET PO SCH (08:37)
[2022-04-16] MEDS: LACTULOSE 20 GM/30 ML SYRUP UD PO SCH ×3 (08:37→21:00)
[2022-04-16] MEDS: LEVEMIR (INSULIN DETEMIR) 1 UNITS/0.01ML SC SCH (08:37)
[2022-04-16] MEDS: ASPIRIN 81MG CHEW TABLET PO SCH (08:38)
[2022-04-16] MEDS: ATORVASTATIN 20 MG TAB PO SCH (08:39)
[2022-04-16] MEDS: HEPARIN SOD (PORCINE) 5000UNITS/ML 1ML VIAL/SYRINGE SC SCH ×2 (08:39→21:16)
[2022-04-16] MEDS: FOLIC ACID 1MG TAB PO SCH (08:39)
[2022-04-16] MEDS ORDERED: LEVEMIR (INSULIN DETEMIR) 1 UNITS/0.01ML SC SCH (09:00)
[2022-04-16] MEDS ORDERED: PREVNAR-20 VACCINE 0.5ML SYRINGE IM.IMMUN ONE (13:00)
[2022-04-16] MEDS: GABAPENTIN 300 MG CAP PO SCH (21:16)
[2022-04-16] MEDS: rOPINIRole 1MG TAB PO SCH (21:16)
[2022-04-16] MEDS: DULoxetine 30MG CAPSULE (CYMBALTA) PO SCH (21:16)
[2022-04-17] VITALS (19 sets, daily range): BP systolic 138–204; BP diastolic 74–100; O2SAT 93–98
[2022-04-17] MEDS ORDERED: LABETALOL 100MG/20ML VIAL IV STA (03:28)
[2022-04-17 05:16] LABS: BASO % 0.1 % (0.0-1.0); EOS % 0.1 % (0.0-3.0); HEMATOCRIT 36.6 % (36.0-47.0); LYMPH # 2.2 10^3/uL (1.5-5.0); LYMPH % 21.8 % (24.0-44.0); MEAN CORPUSCULAR HEMOGLOBIN 32.4 pg (27.0-33.0); MEAN CORPUSCULAR HGB CONC 35.5 g/dl (32.0-36.5); MEAN CORPUSCULAR VOLUME 91.3 fl (80.0-96.0); MONO # 0.6 10^3/uL (0.0-0.8); MONO % 6.1 % (2.0-8.0); NEUTROPHILS # 7.3 10^3/uL (1.5-8.5); NEUTROPHILS % 71.4 % (36.0-66.0); RED BLOOD COUNT 4.01 10^6/uL (4.00-5.40); WHITE BLOOD COUNT 10.2 10^3/uL (4.0-10.0)
[2022-04-17 05:21] LABS: PLATELET COUNT, AUTOMATED 92 10^3/uL (150-450)
[2022-04-17 05:34] LABS: CHLORIDE LEVEL 106 MMOL/L (98-107); POTASSIUM SERUM 3.3 MMOL/L (3.5-5.1); SODIUM LEVEL 136 MMOL/L (136-145)
[2022-04-17 05:36] LABS: ALBUMIN 2.7 G/DL (3.2-5.2); CARBON DIOXIDE LEVEL 21 MMOL/L (20-31)
[2022-04-17 05:40] LABS: BLOOD UREA NITROGEN 20 MG/DL (9-23); CALCIUM LEVEL 7.4 MG/DL (8.3-10.6); GLUCOSE, FASTING 328 MG/DL (74-106)
[2022-04-17 05:41] LABS: ALKALINE PHOSPHATASE 57 U/L (46-116)
[2022-04-17 05:42] LABS: CREATININE FOR GFR 0.55 MG/DL (0.55-1.30); GLOMERULAR FILTRATION RATE > 60.0 (>32)
[2022-04-17 05:43] LABS: ALT/SGPT 44 U/L (7.0-40); AST/SGOT 25 U/L (<34); BILIRUBIN,TOTAL 1.6 MG/DL (0.3-1.2); TOTAL PROTEIN 5.4 G/DL (5.7-8.2)
[2022-04-17] MEDS ORDERED: POTASSIUM CHLORIDE 10MEQ SR TABLET PO ONE (08:00)
[2022-04-17] MEDS: LEVEMIR (INSULIN DETEMIR) 1 UNITS/0.01ML SC SCH ×2 (08:50→20:46)
[2022-04-17] MEDS: INSULIN LISPRO (NovoLOG) PER UNIT SC SCH ×4 (08:51→20:46)
[2022-04-17] MEDS: LOSARTAN 25 MG TAB PO SCH (08:52)
[2022-04-17] MEDS: FOLIC ACID 1MG TAB PO SCH (08:52)
[2022-04-17] MEDS: NADOLOL 20MG TABLET PO SCH (08:52)
[2022-04-17] MEDS: ASPIRIN 81MG CHEW TABLET PO SCH (08:52)
[2022-04-17] MEDS: ATORVASTATIN 20 MG TAB PO SCH (08:52)
[2022-04-17] MEDS: LACTULOSE 20 GM/30 ML SYRUP UD PO SCH ×3 (08:53→20:46)
[2022-04-17] MEDS ORDERED: ENOXAPARIN 40MG/0.4ML SYRINGE (J1650 PER 10MG) SC SCH (09:00)
[2022-04-17] MEDS ORDERED: ASPI81CH8 PO (09:45)
[2022-04-17] MEDS ORDERED: LANTINJ4 SC (09:45)
[2022-04-17] MEDS ORDERED: ATOR1TAB21 PO (09:45)
[2022-04-17] MEDS ORDERED: COZA1TAB PO (09:45)
[2022-04-17] MEDS ORDERED: INSULIN LISPRO (NovoLOG) PER UNIT SC ONE (13:25)
[2022-04-17] MEDS: GABAPENTIN 300 MG CAP PO SCH (20:46)
[2022-04-17] MEDS: rOPINIRole 1MG TAB PO SCH (20:46)
[2022-04-17] MEDS: DULoxetine 30MG CAPSULE (CYMBALTA) PO SCH (20:46)
[2022-04-18] VITALS (12 sets, daily range): BP systolic 135–166; BP diastolic 60–84; O2SAT 94
[2022-04-18] MEDS: LACTULOSE 20 GM/30 ML SYRUP UD PO SCH ×4 (04:31→19:57)
[2022-04-18 05:36] LABS: BASO % 0.1 % (0.0-1.0); EOS % 0.2 % (0.0-3.0); HEMOGLOBIN 12.3 g/dl (12.0-15.5); LYMPH % 26.3 % (24.0-44.0); MEAN CORPUSCULAR HEMOGLOBIN 32.2 pg (27.0-33.0); MEAN CORPUSCULAR HGB CONC 35.1 g/dl (32.0-36.5); MEAN CORPUSCULAR VOLUME 91.6 fl (80.0-96.0); MONO # 0.9 10^3/uL (0.0-0.8); MONO % 6.2 % (2.0-8.0); NEUTROPHILS % 66.6 % (36.0-66.0); PLATELET COUNT, AUTOMATED 123 10^3/uL (150-450); RED BLOOD COUNT 3.82 10^6/uL (4.00-5.40); WHITE BLOOD COUNT 15.1 10^3/uL (4.0-10.0)
[2022-04-18 06:00] LABS: ALBUMIN 2.6 G/DL (3.2-5.2); ALKALINE PHOSPHATASE 53 U/L (46-116); ALT/SGPT 52 U/L (7.0-40); AST/SGOT 28 U/L (<34); BILIRUBIN,TOTAL 1.9 MG/DL (0.3-1.2); BLOOD UREA NITROGEN 37 MG/DL (9-23); CALCIUM LEVEL 7.6 MG/DL (8.3-10.6); CARBON DIOXIDE LEVEL 20 MMOL/L (20-31); CHLORIDE LEVEL 107 MMOL/L (98-107); CREATININE FOR GFR 0.47 MG/DL (0.55-1.30); GLOMERULAR FILTRATION RATE > 60.0 (>32); GLUCOSE, FASTING 304 MG/DL (74-106); POTASSIUM SERUM 3.9 MMOL/L (3.5-5.1); SODIUM LEVEL 138 MMOL/L (136-145); TOTAL PROTEIN 5.4 G/DL (5.7-8.2)
[2022-04-18] MEDS ORDERED: INSULIN LISPRO (NovoLOG) PER UNIT SC SCH (07:30)
[2022-04-18] MEDS: INSULIN LISPRO (NovoLOG) PER UNIT SC SCH ×3 (08:31→18:59)
[2022-04-18] MEDS ORDERED: CEFDINIR 300 MG CAP (OMNICEF) PO SCH (09:00)
[2022-04-18] MEDS: FOLIC ACID 1MG TAB PO SCH (09:16)
[2022-04-18] MEDS: LEVEMIR (INSULIN DETEMIR) 1 UNITS/0.01ML SC SCH (09:16)
[2022-04-18] MEDS: ASPIRIN 81MG CHEW TABLET PO SCH (09:17)
[2022-04-18] MEDS: ATORVASTATIN 20 MG TAB PO SCH (09:17)
[2022-04-18] MEDS: NADOLOL 20MG TABLET PO SCH (09:17)
[2022-04-18] MEDS: LOSARTAN 25 MG TAB PO SCH (09:17)
[2022-04-18 10:58] LABS: HEMATOCRIT 33.7 % (36.0-47.0); HEMOGLOBIN 11.9 g/dl (12.0-15.5)
[2022-04-18] MEDS ORDERED: propofoL 200 MG/20 ML VIAL As Ordered ONE (16:59)
[2022-04-18 18:51] LABS: HEMATOCRIT 28.7 % (36.0-47.0)
[2022-04-18] MEDS ORDERED: OCTREOTIDE ACETATE 100MCG/ML VIAL **IV ADMINISTRATION ONLY IV ONE (19:00)
[2022-04-18 19:11] LABS: HEMOGLOBIN 9.7 g/dl (12.0-15.5)
[2022-04-18] MEDS ORDERED: LIDOCAINE VISCOUS 2% SOLN 15ML UDC PO PRN (19:35)
[2022-04-18] MEDS: PANTOPRAZOLE 40MG VIAL IV SCH (20:25)
[2022-04-18] MEDS: cefTRIAXone SOD 1 GM in D5W MINI-BAG PLUS 50 ML IV SCH (20:25)
[2022-04-18] MEDS: rOPINIRole 1MG TAB PO SCH (20:26)
[2022-04-18] MEDS: DULoxetine 30MG CAPSULE (CYMBALTA) PO SCH (20:26)
[2022-04-18] MEDS: GABAPENTIN 300 MG CAP PO SCH (20:27)
[2022-04-18] MEDS ORDERED: LEVEMIR (INSULIN DETEMIR) 1 UNITS/0.01ML SC ONE (22:00)
[2022-04-18] MEDS ORDERED: ALPRAZolam 0.25 MG TAB PO ONE (22:00)
[2022-04-18] MEDS: OCTREOTIDE ACETATE 1,200 MCG in NS 238.8 ML IV SCH (22:42)
[2022-04-18 22:57] LABS: HEMATOCRIT 28.1 % (36.0-47.0); HEMOGLOBIN 9.8 g/dl (12.0-15.5)
[2022-04-19] VITALS (22 sets, daily range): BP systolic 106–153; BP diastolic 56–100; O2SAT 90–97
[2022-04-19] MEDS: INSULIN LISPRO (NovoLOG) PER UNIT SC SCH ×4 (00:31→17:39)
[2022-04-19] MEDS: LACTULOSE 20 GM/30 ML SYRUP UD PO SCH ×4 (03:18→21:04)
[2022-04-19] MEDS: DEXTROSE 50% 50 ML SYRINGE IV PRN (05:23)
[2022-04-19 05:25] LABS: HEMOGLOBIN 9.3 g/dl (12.0-15.5); MEAN CORPUSCULAR HEMOGLOBIN 32.5 pg (27.0-33.0); MEAN CORPUSCULAR HGB CONC 34.4 g/dl (32.0-36.5); MEAN CORPUSCULAR VOLUME 94.4 fl (80.0-96.0); PLATELET COUNT, AUTOMATED 135 10^3/uL (150-450); RED BLOOD COUNT 2.86 10^6/uL (4.00-5.40); WHITE BLOOD COUNT 17.8 10^3/uL (4.0-10.0)
[2022-04-19 06:40] LABS: ALBUMIN 2.3 G/DL (3.2-5.2); ALKALINE PHOSPHATASE 41 U/L (46-116); ALT/SGPT 44 U/L (7.0-40); AST/SGOT 27 U/L (<34); BILIRUBIN,TOTAL 0.9 MG/DL (0.3-1.2); BLOOD UREA NITROGEN 47 MG/DL (9-23); CALCIUM LEVEL 7.1 MG/DL (8.3-10.6); CARBON DIOXIDE LEVEL 22 MMOL/L (20-31); CHLORIDE LEVEL 114 MMOL/L (98-107); CREATININE FOR GFR 0.61 MG/DL (0.55-1.30); GLOMERULAR FILTRATION RATE > 60.0 (>32); GLUCOSE, FASTING 60 MG/DL (74-106); POTASSIUM SERUM 3.3 MMOL/L (3.5-5.1); SODIUM LEVEL 145 MMOL/L (136-145); TOTAL PROTEIN 4.6 G/DL (5.7-8.2)
[2022-04-19] MEDS ORDERED: POTASSIUM CHLORIDE 10MEQ SR TABLET PO ONE (07:25)
[2022-04-19 08:20] LABS: ATYPICAL LYMPH 2 % (0-5); LYMPHOCYTES 35 % (16-44); MONOCYTES 5 % (0-5); NEUTROPHILS 57 % (28-66)
[2022-04-19 08:23] LABS: HYPOCHROMASIA 1+
[2022-04-19 08:24] LABS: PLATELET ESTIMATE NORMAL (NORMAL); SMUDGE CELLS 1+
[2022-04-19] MEDS: NADOLOL 20MG TABLET PO SCH (09:32)
[2022-04-19] MEDS: ASPIRIN 81MG CHEW TABLET PO SCH (09:32)
[2022-04-19] MEDS: FOLIC ACID 1MG TAB PO SCH (09:32)
[2022-04-19] MEDS: PANTOPRAZOLE 40MG VIAL IV SCH ×2 (09:32→21:02)
[2022-04-19] MEDS: LOSARTAN 25 MG TAB PO SCH (09:33)
[2022-04-19] MEDS: ATORVASTATIN 20 MG TAB PO SCH (09:33)
[2022-04-19] MEDS: LEVEMIR (INSULIN DETEMIR) 1 UNITS/0.01ML SC SCH ×2 (09:34→22:34)
[2022-04-19 12:58] LABS: HEMATOCRIT 31.4 % (36.0-47.0); HEMOGLOBIN 10.3 g/dl (12.0-15.5)
[2022-04-19 16:58] LABS: HEMATOCRIT 29.1 % (36.0-47.0); HEMOGLOBIN 9.9 g/dl (12.0-15.5)
[2022-04-19 18:27] LABS: HEMATOCRIT 28.8 % (36.0-47.0); HEMOGLOBIN 9.9 g/dl (12.0-15.5)
[2022-04-19] MEDS: cefTRIAXone SOD 1 GM in D5W MINI-BAG PLUS 50 ML IV SCH (21:02)
[2022-04-19] MEDS: OCTREOTIDE ACETATE 1,200 MCG in NS 238.8 ML IV SCH (21:02)
[2022-04-19] MEDS: rOPINIRole 1MG TAB PO SCH (21:03)
[2022-04-19] MEDS: GABAPENTIN 300 MG CAP PO SCH (21:03)
[2022-04-19] MEDS: DULoxetine 30MG CAPSULE (CYMBALTA) PO SCH (21:03)
[2022-04-20] VITALS (23 sets, daily range): BP systolic 101–162; BP diastolic 53–86; O2SAT 85–98
[2022-04-20] MEDS: LACTULOSE 20 GM/30 ML SYRUP UD PO SCH ×2 (04:50→09:35)
[2022-04-20] MEDS: DEXTROSE 50% 50 ML SYRINGE IV PRN ×3 (04:56→21:15)
[2022-04-20] MEDS: INSULIN LISPRO (NovoLOG) PER UNIT SC SCH ×4 (05:01→17:43)
[2022-04-20 06:02] LABS: BASO % 0.3 % (0.0-1.0); EOS # 0.1 10^3/uL (0.0-0.5); EOS % 0.5 % (0.0-3.0); HEMATOCRIT 26.7 % (36.0-47.0); HEMOGLOBIN 8.6 g/dl (12.0-15.5); LYMPH # 3.3 10^3/uL (1.5-5.0); LYMPH % 29.7 % (24.0-44.0); MEAN CORPUSCULAR HEMOGLOBIN 32.1 pg (27.0-33.0); MEAN CORPUSCULAR HGB CONC 32.2 g/dl (32.0-36.5); MEAN CORPUSCULAR VOLUME 99.6 fl (80.0-96.0); MONO % 8.9 % (2.0-8.0); NEUTROPHILS # 6.6 10^3/uL (1.5-8.5); PLATELET COUNT, AUTOMATED 108 10^3/uL (150-450); RED BLOOD COUNT 2.68 10^6/uL (4.00-5.40)
[2022-04-20 06:34] LABS: ALBUMIN 2.4 G/DL (3.2-5.2); ALKALINE PHOSPHATASE 40 U/L (46-116); ALT/SGPT 49 U/L (7.0-40); AST/SGOT 35 U/L (<34); BILIRUBIN,TOTAL 0.8 MG/DL (0.3-1.2); BLOOD UREA NITROGEN 19 MG/DL (9-23); CALCIUM LEVEL 6.9 MG/DL (8.3-10.6); CARBON DIOXIDE LEVEL 19 MMOL/L (20-31); CHLORIDE LEVEL 112 MMOL/L (98-107); CREATININE FOR GFR 0.68 MG/DL (0.55-1.30); GLOMERULAR FILTRATION RATE > 60.0 (>32); GLUCOSE, FASTING 161 MG/DL (74-106); POTASSIUM SERUM 3.5 MMOL/L (3.5-5.1); SODIUM LEVEL 140 MMOL/L (136-145); TOTAL PROTEIN 4.7 G/DL (5.7-8.2)
[2022-04-20] MEDS: FOLIC ACID 1MG TAB PO SCH (09:23)
[2022-04-20] MEDS: ASPIRIN 81MG CHEW TABLET PO SCH (09:23)
[2022-04-20] MEDS: NADOLOL 20MG TABLET PO SCH (09:23)
[2022-04-20] MEDS: LEVEMIR (INSULIN DETEMIR) 1 UNITS/0.01ML SC SCH (09:24)
[2022-04-20] MEDS: ATORVASTATIN 20 MG TAB PO SCH (09:24)
[2022-04-20] MEDS: PANTOPRAZOLE 40MG VIAL IV SCH ×2 (09:24→20:41)
[2022-04-20] MEDS: LOSARTAN 25 MG TAB PO SCH (09:24)
[2022-04-20] MEDS ORDERED: INSULIN LISPRO (NovoLOG) PER UNIT SC SCH (09:45)
[2022-04-20] MEDS ORDERED: ROCURONIUM BROMIDE 50 MG/5 ML VIAL As Ordered ONE (09:57)
[2022-04-20] MEDS ORDERED: propofoL 200 MG/20 ML VIAL As Ordered ONE (09:57)
[2022-04-20] MEDS ORDERED: LIDOCAINE 2% 100MG/5ML SDV (FOR ANES.) As Ordered ONE (09:57)
[2022-04-20] MEDS ORDERED: MIDAZOLAM INJ 2MG/2ML VIAL (J2250 PER 1MG) As Ordered ONE (09:58)
[2022-04-20] MEDS ORDERED: fentaNYL 100 MCG/2 ML INJECTION As Ordered ONE (09:58)
[2022-04-20] MEDS ORDERED: SUGAMMADEX SODIUM 500 MG/5 ML VIAL (BRIDION) As Ordered ONE (11:11)
[2022-04-20 13:15] LABS: HEMATOCRIT 27.7 % (36.0-47.0); HEMOGLOBIN 9.3 g/dl (12.0-15.5)
[2022-04-20 18:37] LABS: HEMATOCRIT 26.3 % (36.0-47.0); HEMOGLOBIN 8.9 g/dl (12.0-15.5)
[2022-04-20] MEDS: DULoxetine 30MG CAPSULE (CYMBALTA) PO SCH (20:38)
[2022-04-20] MEDS: GABAPENTIN 300 MG CAP PO SCH (20:39)
[2022-04-20] MEDS: rOPINIRole 1MG TAB PO SCH (20:39)
[2022-04-20] MEDS: NYSTATIN 100,000 UNITS/GM TOPICAL PWD 15GM TOP SCH (20:40)
[2022-04-20] MEDS: OCTREOTIDE ACETATE 1,200 MCG in NS 238.8 ML IV SCH (20:41)
[2022-04-20] MEDS: cefTRIAXone SOD 1 GM in D5W MINI-BAG PLUS 50 ML IV SCH (20:41)
[2022-04-20] MEDS ORDERED: LEVEMIR (INSULIN DETEMIR) 1 UNITS/0.01ML SC ONE (21:00)
[2022-04-21] VITALS (26 sets, daily range): BP systolic 110–156; BP diastolic 57–87; O2SAT 95–99
[2022-04-21 00:37] LABS: HEMATOCRIT 26.1 % (36.0-47.0); HEMOGLOBIN 8.9 g/dl (12.0-15.5)
[2022-04-21] MEDS ORDERED: DEXTROSE 50% 50 ML SYRINGE IV STA (00:58)
[2022-04-21 05:29] LABS: BASO % 0.1 % (0.0-1.0); EOS % 0.2 % (0.0-3.0); HEMATOCRIT 22.6 % (36.0-47.0); HEMOGLOBIN 7.8 g/dl (12.0-15.5); LYMPH # 2.7 10^3/uL (1.5-5.0); LYMPH % 32.4 % (24.0-44.0); MEAN CORPUSCULAR HEMOGLOBIN 32.6 pg (27.0-33.0); MEAN CORPUSCULAR HGB CONC 34.5 g/dl (32.0-36.5); MEAN CORPUSCULAR VOLUME 94.6 fl (80.0-96.0); MONO # 0.7 10^3/uL (0.0-0.8); MONO % 7.7 % (2.0-8.0); RED BLOOD COUNT 2.39 10^6/uL (4.00-5.40); WHITE BLOOD COUNT 8.4 10^3/uL (4.0-10.0)
[2022-04-21 05:44] LABS: PLATELET COUNT, AUTOMATED 78 10^3/uL (150-450)
[2022-04-21] MEDS: INSULIN LISPRO (NovoLOG) PER UNIT SC SCH ×6 (06:00→17:30)
[2022-04-21 06:06] LABS: ALBUMIN 2.2 G/DL (3.2-5.2); ALKALINE PHOSPHATASE 40 U/L (46-116); ALT/SGPT 52 U/L (7.0-40); AST/SGOT 32 U/L (<34); BILIRUBIN,TOTAL 0.9 MG/DL (0.3-1.2); BLOOD UREA NITROGEN 14 MG/DL (9-23); CALCIUM LEVEL 6.7 MG/DL (8.3-10.6); CARBON DIOXIDE LEVEL 21 MMOL/L (20-31); CHLORIDE LEVEL 111 MMOL/L (98-107); CREATININE FOR GFR 0.59 MG/DL (0.55-1.30); GLOMERULAR FILTRATION RATE > 60.0 (>32); GLUCOSE, FASTING 105 MG/DL (74-106); POTASSIUM SERUM 3.6 MMOL/L (3.5-5.1); SODIUM LEVEL 140 MMOL/L (136-145); TOTAL PROTEIN 4.3 G/DL (5.7-8.2)
[2022-04-21] MEDS: LACTULOSE 20 GM/30 ML SYRUP UD PO SCH ×3 (06:37→22:00)
[2022-04-21] MEDS: LOSARTAN 25 MG TAB PO SCH (09:55)
[2022-04-21] MEDS: PANTOPRAZOLE 40MG VIAL IV SCH ×2 (09:55→21:46)
[2022-04-21] MEDS: NADOLOL 20MG TABLET PO SCH (09:55)
[2022-04-21] MEDS: FOLIC ACID 1MG TAB PO SCH (09:55)
[2022-04-21] MEDS: ATORVASTATIN 20 MG TAB PO SCH (09:55)
[2022-04-21] MEDS: ASPIRIN 81MG CHEW TABLET PO SCH (09:55)
[2022-04-21] MEDS: LEVEMIR (INSULIN DETEMIR) 1 UNITS/0.01ML SC SCH ×2 (09:56→21:51)
[2022-04-21] MEDS: NYSTATIN 100,000 UNITS/GM TOPICAL PWD 15GM TOP SCH ×2 (09:56→21:46)
[2022-04-21 15:49] LABS: BASO % 0.2 % (0.0-1.0); EOS % 0.2 % (0.0-3.0); HEMATOCRIT 29.7 % (36.0-47.0); LYMPH # 2.8 10^3/uL (1.5-5.0); LYMPH % 27.1 % (24.0-44.0); MEAN CORPUSCULAR HEMOGLOBIN 32.7 pg (27.0-33.0); MEAN CORPUSCULAR HGB CONC 34.7 g/dl (32.0-36.5); MEAN CORPUSCULAR VOLUME 94.3 fl (80.0-96.0); MONO # 0.7 10^3/uL (0.0-0.8); NEUTROPHILS # 6.7 10^3/uL (1.5-8.5); PLATELET COUNT, AUTOMATED 116 10^3/uL (150-450); RED BLOOD COUNT 3.15 10^6/uL (4.00-5.40); WHITE BLOOD COUNT 10.4 10^3/uL (4.0-10.0)
[2022-04-21 15:55] LABS: HEMOGLOBIN 10.3 g/dl (12.0-15.5)
[2022-04-21] MEDS ORDERED: INSULIN LISPRO (NovoLOG) PER UNIT SC SCH (21:00)
[2022-04-21] MEDS: rOPINIRole 1MG TAB PO SCH (21:47)
[2022-04-21] MEDS: DULoxetine 30MG CAPSULE (CYMBALTA) PO SCH (21:49)
[2022-04-21] MEDS: GABAPENTIN 300 MG CAP PO SCH (21:50)
[2022-04-22] VITALS (18 sets, daily range): BP systolic 132–180; BP diastolic 58–90; O2SAT 96–100
[2022-04-22 04:55] LABS: HEMOGLOBIN 10.3 g/dl (12.0-15.5); MEAN CORPUSCULAR HEMOGLOBIN 32.9 pg (27.0-33.0); MEAN CORPUSCULAR HGB CONC 35.5 g/dl (32.0-36.5); MEAN CORPUSCULAR VOLUME 92.7 fl (80.0-96.0); PLATELET COUNT, AUTOMATED 116 10^3/uL (150-450); RED BLOOD COUNT 3.13 10^6/uL (4.00-5.40); WHITE BLOOD COUNT 13.3 10^3/uL (4.0-10.0)
[2022-04-22 05:34] LABS: ATYPICAL LYMPH 2 % (0-5); EOSINOPHILS 1 % (0-3); LYMPHOCYTES 28 % (16-44); MONOCYTES 9 % (0-5); NEUTROPHILS 60 % (28-66); PLATELET ESTIMATE NORMAL (NORMAL)
[2022-04-22 05:35] LABS: ANISOCYTOSIS 1+; POLYCHROMASIA 1+
[2022-04-22] MEDS: DEXTROSE 50% 50 ML SYRINGE IV PRN (05:41)
[2022-04-22] MEDS: LACTULOSE 20 GM/30 ML SYRUP UD PO SCH ×3 (05:41→21:26)
[2022-04-22] MEDS ORDERED: CIPROFLOXACIN 500MG TABLET PO SCH (06:00)
[2022-04-22] MEDS: INSULIN LISPRO (NovoLOG) PER UNIT SC SCH ×4 (07:30→13:28)
[2022-04-22 08:15] LABS: ALBUMIN 2.6 G/DL (3.2-5.2); ALKALINE PHOSPHATASE 50 U/L (46-116); ALT/SGPT 62 U/L (7.0-40); AST/SGOT 40 U/L (<34); BILIRUBIN,TOTAL 1.8 MG/DL (0.3-1.2); BLOOD UREA NITROGEN 17 MG/DL (9-23); CALCIUM LEVEL 7.4 MG/DL (8.3-10.6); CARBON DIOXIDE LEVEL 22 MMOL/L (20-31); CHLORIDE LEVEL 110 MMOL/L (98-107); CREATININE FOR GFR 0.64 MG/DL (0.55-1.30); GLOMERULAR FILTRATION RATE > 60.0 (>32); GLUCOSE, FASTING 48 MG/DL (74-106); POTASSIUM SERUM 3.3 MMOL/L (3.5-5.1); SODIUM LEVEL 141 MMOL/L (136-145)
[2022-04-22] MEDS ORDERED: LEVEMIR (INSULIN DETEMIR) 1 UNITS/0.01ML SC SCH (09:00)
[2022-04-22] MEDS: PANTOPRAZOLE 40MG VIAL IV SCH ×2 (09:29→21:32)
[2022-04-22] MEDS: NADOLOL 20MG TABLET PO SCH (09:30)
[2022-04-22] MEDS: LOSARTAN 25 MG TAB PO SCH (09:30)
[2022-04-22] MEDS: ASPIRIN 81MG CHEW TABLET PO SCH (09:30)
[2022-04-22] MEDS: ATORVASTATIN 20 MG TAB PO SCH (09:30)
[2022-04-22] MEDS: FOLIC ACID 1MG TAB PO SCH (09:30)
[2022-04-22] MEDS: NYSTATIN 100,000 UNITS/GM TOPICAL PWD 15GM TOP SCH ×2 (09:31→21:46)
[2022-04-22] MEDS ORDERED: cefTRIAXone SOD 1 GM in D5W MINI-BAG PLUS 50 ML IV SCH (11:00)
[2022-04-22] MEDS ORDERED: LevoFLOXacin IV 750 MG in IV 1 EA IV SCH (13:00)
[2022-04-22] MEDS: GABAPENTIN 300 MG CAP PO SCH (21:32)
[2022-04-22] MEDS: rOPINIRole 1MG TAB PO SCH (21:32)
[2022-04-22] MEDS: DULoxetine 30MG CAPSULE (CYMBALTA) PO SCH (21:32)
[2022-04-22] MEDS ORDERED: RAMELTEON 8 MG TAB (ROZEREM) PO ONE (23:50)
[2022-04-23] VITALS (17 sets, daily range): BP systolic 119–162; BP diastolic 58–82; O2SAT 95–98
[2022-04-23] MEDS ORDERED: diphenhydrAMINE 25MG CAP PO ONE (01:50)
[2022-04-23] MEDS: LACTULOSE 20 GM/30 ML SYRUP UD PO SCH ×3 (04:09→20:22)
[2022-04-23 05:33] LABS: BASO % 0.1 % (0.0-1.0); EOS % 0.2 % (0.0-3.0); HEMATOCRIT 25.7 % (36.0-47.0); HEMOGLOBIN 8.9 g/dl (12.0-15.5); LYMPH # 2.2 10^3/uL (1.5-5.0); LYMPH % 26.2 % (24.0-44.0); MEAN CORPUSCULAR HEMOGLOBIN 32.5 pg (27.0-33.0); MEAN CORPUSCULAR HGB CONC 34.6 g/dl (32.0-36.5); MEAN CORPUSCULAR VOLUME 93.8 fl (80.0-96.0); MONO # 0.6 10^3/uL (0.0-0.8); MONO % 7.8 % (2.0-8.0); NEUTROPHILS # 5.3 10^3/uL (1.5-8.5); NEUTROPHILS % 65.2 % (36.0-66.0); RED BLOOD COUNT 2.74 10^6/uL (4.00-5.40); WHITE BLOOD COUNT 8.2 10^3/uL (4.0-10.0)
[2022-04-23 05:56] LABS: PLATELET COUNT, AUTOMATED 74 10^3/uL (150-450)
[2022-04-23 05:58] LABS: ALBUMIN 2.1 G/DL (3.2-5.2); ALKALINE PHOSPHATASE 51 U/L (46-116); ALT/SGPT 56 U/L (7.0-40); AST/SGOT 38 U/L (<34); BILIRUBIN,TOTAL 1.4 MG/DL (0.3-1.2); BLOOD UREA NITROGEN 16 MG/DL (9-23); CALCIUM LEVEL 6.5 MG/DL (8.3-10.6); CARBON DIOXIDE LEVEL 20 MMOL/L (20-31); CHLORIDE LEVEL 109 MMOL/L (98-107); CREATININE FOR GFR 0.67 MG/DL (0.55-1.30); GLOMERULAR FILTRATION RATE > 60.0 (>32); GLUCOSE, FASTING 280 MG/DL (74-106); POTASSIUM SERUM 3.5 MMOL/L (3.5-5.1); SODIUM LEVEL 138 MMOL/L (136-145); TOTAL PROTEIN 4.3 G/DL (5.7-8.2)
[2022-04-23] MEDS ORDERED: LEVEMIR (INSULIN DETEMIR) 1 UNITS/0.01ML SC SCH (09:00)
[2022-04-23] MEDS ORDERED: PANTOPRAZOLE 40MG TAB (PROTONIX) PO SCH ×2 (09:00→21:00)
[2022-04-23] MEDS: ATORVASTATIN 20 MG TAB PO SCH (10:04)
[2022-04-23] MEDS: ASPIRIN 81MG CHEW TABLET PO SCH (10:05)
[2022-04-23] MEDS: FOLIC ACID 1MG TAB PO SCH (10:06)
[2022-04-23] MEDS: LOSARTAN 25 MG TAB PO SCH (10:07)
[2022-04-23] MEDS: NADOLOL 20MG TABLET PO SCH (10:07)
[2022-04-23] MEDS: PANTOPRAZOLE 40MG VIAL IV SCH (10:08)
[2022-04-23] MEDS: NYSTATIN 100,000 UNITS/GM TOPICAL PWD 15GM TOP SCH ×2 (10:10→20:30)
[2022-04-23] MEDS: INSULIN LISPRO (NovoLOG) PER UNIT SC SCH ×2 (12:59→17:58)
[2022-04-23] MEDS ORDERED: LevoFLOXacin 750 MG TABLET PO SCH (13:00)
[2022-04-23] MEDS: rOPINIRole 1MG TAB PO SCH (20:29)
[2022-04-23] MEDS: DULoxetine 30MG CAPSULE (CYMBALTA) PO SCH (20:29)
[2022-04-23] MEDS: GABAPENTIN 300 MG CAP PO SCH (20:29)
[2022-04-23] MEDS ORDERED: RAMELTEON 8 MG TAB (ROZEREM) PO SCH (21:00)
[2022-04-24] MEDS ORDERED: ENUL10SO PO (12:40)
[2022-04-24] MEDS ORDERED: LEVO750T14 PO (12:40)
[2022-04-24] MEDS ORDERED: PANT40TA29 PO (12:43)
== END 2022-04-23 22:10 | disposition left against medical advice (07) | DRG 64 ==
LOC: M ED 09:59 → M ED INP 14:39 → ENRESERV 19:49 → M PCU 20:24
PROVIDERS: ADMIT Internal Medicine; ATTEND Internal Medicine
PROC: B246ZZZ Ultrasonography of Right and Left Heart (ICD-10-PCS; principal; 2022-04-16)
PROC: 0W3P8ZZ Control Bleeding in Gastrointestinal Tract, Via Natural or Artificial Opening Endoscopic (ICD-10-PCS; 2022-04-18)
PROC: 0DJ08ZZ Inspection of Upper Intestinal Tract, Via Natural or Artificial Opening Endoscopic (ICD-10-PCS; 2022-04-20)
PROC: 30233N1 Transfusion of Nonautologous Red Blood Cells into Peripheral Vein, Percutaneous Approach (ICD-10-PCS; 2022-04-21)
DX: I63.212 Cerebral infarction due to unspecified occlusion or stenosis of left vertebral artery (principal); G93.41 Metabolic encephalopathy; I85.11 Secondary esophageal varices with bleeding; E87.1 Hypo-osmolality and hyponatremia; E87.20 Acidosis, unspecified; E72.20 Disorder of urea cycle metabolism, unspecified; D62 Acute posthemorrhagic anemia; K76.6 Portal hypertension; F03.90 Unspecified dementia, unspecified severity, without behavioral disturbance, psychotic disturbance, mood disturbance, and anxiety; G20 Parkinson's disease; K74.60 Unspecified cirrhosis of liver; E11.65 Type 2 diabetes mellitus with hyperglycemia; I12.9 Hypertensive chronic kidney disease with stage 1 through stage 4 chronic kidney disease, or unspecified chronic kidney disease; E78.5 Hyperlipidemia, unspecified; M19.90 Unspecified osteoarthritis, unspecified site; D69.59 Other secondary thrombocytopenia; K76.82 Hepatic encephalopathy; N18.2 Chronic kidney disease, stage 2 (mild); F41.9 Anxiety disorder, unspecified; K76.0 Fatty (change of) liver, not elsewhere classified; R29.810 Facial weakness; E11.22 Type 2 diabetes mellitus with diabetic chronic kidney disease; R47.81 Slurred speech; E86.0 Dehydration; E11.42 Type 2 diabetes mellitus with diabetic polyneuropathy; G25.81 Restless legs syndrome; Z98.41 Cataract extraction status, right eye; Z98.42 Cataract extraction status, left eye; Z96.651 Presence of right artificial knee joint; R13.10 Dysphagia, unspecified; Z79.84 Long term (current) use of oral hypoglycemic drugs; Z79.899 Other long term (current) drug therapy; Z85.528 Personal history of other malignant neoplasm of kidney; Z88.5 Allergy status to narcotic agent; Z97.8 Presence of other specified devices; Z87.440 Personal history of urinary (tract) infections

== ENCOUNTER → 2022-04-25 | Outpatient (CLI) | payer MEDICARE ==
[~2022-04-25] MED LIST changes: +ASPI81CH8 PO; +ATOR1TAB21 PO; +CBD GUMMIES PO; +CBD PO; +COZA1TAB PO; +CYAN100050 PO; +D3 S20002 PO; +FOLI1TAB11 PO; +ISOVUE-370 76% 100ML VIAL As Ordered ONE; +LANTINJ4 SC; +LEVO750T14 PO; +NYST-38 SS; -NYST50SS SS; +OMEG10002 PO; +PANT40TA29 PO
== END ==
LOC: M RAD 11:25
PROVIDERS: ATTEND Internal Medicine Hematology
DX: K74.60 Unspecified cirrhosis of liver (principal); R18.8 Other ascites; J90 Pleural effusion, not elsewhere classified; R06.02 Shortness of breath

== ENCOUNTER → 2022-04-25 | Outpatient (CLI) | payer MEDICARE ==
[~2022-04-25] MED LIST changes: -ISOVUE-370 76% 100ML VIAL As Ordered ONE; -NYST-38 SS; +NYST50SS SS
[2022-04-25 09:28] LABS: BASO % 0.2 % (0.0-1.0); EOS # 0.1 10^3/uL (0.0-0.5); HEMATOCRIT 29.5 % (36.0-47.0); HEMOGLOBIN 10.2 g/dl (12.0-15.5); LYMPH # 2.3 10^3/uL (1.5-5.0); LYMPH % 23.2 % (24.0-44.0); MEAN CORPUSCULAR HEMOGLOBIN 32.4 pg (27.0-33.0); MEAN CORPUSCULAR HGB CONC 34.6 g/dl (32.0-36.5); MEAN CORPUSCULAR VOLUME 93.7 fl (80.0-96.0); MONO # 0.6 10^3/uL (0.0-0.8); MONO % 6.5 % (2.0-8.0); NEUTROPHILS # 6.8 10^3/uL (1.5-8.5); NEUTROPHILS % 68.8 % (36.0-66.0); PLATELET COUNT, AUTOMATED 112 10^3/uL (150-450); RED BLOOD COUNT 3.15 10^6/uL (4.00-5.40); VENOUS BASE EXCESS -1.4 (-2.0-2.0); VENOUS HCO3 21.6 MEQ/L (23.0-27.0); VENOUS O2 SATURATION 44.1 % (60.0-80.0); VENOUS PARTIAL PRESSURE CO2 30.9 mmHg (38.0-50.0); VENOUS PARTIAL PRESSURE O2 21.3 mmHg (30.0-50.0); VENOUS PH 7.463 UNITS (7.330-7.430); VENOUS STANDARD HCO3 22.3 MEQ/L; VENOUS TOTAL CO2 22.6 MEQ/L (24.0-28.0); WHITE BLOOD COUNT 9.8 10^3/uL (4.0-10.0)
[2022-04-25 09:50] LABS: BLOOD UREA NITROGEN 18 MG/DL (9-23); CALCIUM LEVEL 7.6 MG/DL (8.3-10.6); CARBON DIOXIDE LEVEL 22 MMOL/L (20-31); CHLORIDE LEVEL 107 MMOL/L (98-107); CREATININE FOR GFR 0.67 MG/DL (0.55-1.30); GLOMERULAR FILTRATION RATE > 60.0 (>32); GLUCOSE, FASTING 210 MG/DL (74-106); POTASSIUM SERUM 3.4 MMOL/L (3.5-5.1); SODIUM LEVEL 137 MMOL/L (136-145)
== END ==
LOC: M PLALAB 07:59 → M LAB 07:59
PROVIDERS: ATTEND Internal Medicine Hematology
DX: R06.02 Shortness of breath (principal)

== ENCOUNTER → 2022-06-04 | Outpatient (CLI) | payer MEDICARE ==
[~2022-06-04] VITALS: Ht 149.9 cm; Wt 60.2 kg
[~2022-06-04] MED LIST changes: +NYST-38 SS; -NYST50SS SS
[2022-06-04 13:10] VITALS: BP 143/85
== END ==
LOC: M PAL 12:59
PROVIDERS: ATTEND Nurse Practitioner Adult Health
DX: K74.60 Unspecified cirrhosis of liver (principal); K76.82 Hepatic encephalopathy; C64.9 Malignant neoplasm of unspecified kidney, except renal pelvis; K76.0 Fatty (change of) liver, not elsewhere classified; G89.29 Other chronic pain; M54.2 Cervicalgia; M96.1 Postlaminectomy syndrome, not elsewhere classified; M25.551 Pain in right hip; M25.552 Pain in left hip; E11.9 Type 2 diabetes mellitus without complications; R26.81 Unsteadiness on feet; M19.90 Unspecified osteoarthritis, unspecified site; Z88.5 Allergy status to narcotic agent; Z79.891 Long term (current) use of opiate analgesic; Z79.899 Other long term (current) drug therapy

== ENCOUNTER → 2022-06-27 | Outpatient (CLI) | payer MEDICARE ==
[2022-06-27 10:42] LABS: HEMATOCRIT 35.8 % (36.0-47.0); HEMOGLOBIN 11.6 g/dl (12.0-15.5); MEAN CORPUSCULAR HEMOGLOBIN 30.4 pg (27.0-33.0); MEAN CORPUSCULAR HGB CONC 32.4 g/dl (32.0-36.5); PLATELET COUNT, AUTOMATED 138 10^3/uL (150-450); RED BLOOD COUNT 3.81 10^6/uL (4.00-5.40); WHITE BLOOD COUNT 5.5 10^3/uL (4.0-10.0)
[2022-06-27 10:54] LABS: HEMOGLOBIN A1c 7.8 % (4.0-6.0)
[2022-06-27 11:11] LABS: C REACTIVE PROTEIN QUANTITATIV < 0.40 MG/DL (<1.0)
[2022-06-27 11:12] LABS: ALKALINE PHOSPHATASE 71 U/L (46-116); ALT/SGPT 38 U/L (7.0-40); AST/SGOT 38 U/L (<34); BILIRUBIN,TOTAL 1.1 MG/DL (0.3-1.2); BLOOD UREA NITROGEN 15 MG/DL (9-23); CALCIUM LEVEL 8.6 MG/DL (8.3-10.6); CARBON DIOXIDE LEVEL 29 MMOL/L (20-31); CHLORIDE LEVEL 107 MMOL/L (98-107); CHOLESTEROL LEVEL 167 MG/DL (<200); CHOLESTEROL RISK RATIO 2.97 (<5); CREATININE FOR GFR 0.68 MG/DL (0.55-1.30); FERRITIN 23.9 NG/ML (7.3-270.7); FREE T4 0.78 NG/DL (0.89-1.76); GLOMERULAR FILTRATION RATE > 60.0 (>32); GLUCOSE, FASTING 142 MG/DL (74-106); HDL CHOLESTEROL 56.1 MG/DL (>40); IRON (FE) 73 UG/DL (50-170); LDL CHOLESTEROL 96.1 MG/DL (<100); NON-HDL-C 111 MG/DL; PERCENT SATURATION 23.8 % (13.2-45.0); SODIUM LEVEL 141 MMOL/L (136-145); TOTAL IRON BINDING CAPACITY 307 UG/DL (250-425); TOTAL PROTEIN 6.4 G/DL (5.7-8.2); TRIGLYCERIDES LEVEL 74 MG/DL (<150)
[2022-06-27 11:13] LABS: THYROID STIMULATING HORMONE 0.812 uIU/ML (0.55-4.78); TOTAL 25(OH) VITAMIN D 43.2 NG/ML (20.0-100.0)
[2022-06-27 11:14] LABS: VITAMIN B12 LEVEL 635 PG/ML (211-911)
== END ==
LOC: M PLALAB 07:48
PROVIDERS: ATTEND Internal Medicine Hematology
DX: E11.9 Type 2 diabetes mellitus without complications (principal); D50.0 Iron deficiency anemia secondary to blood loss (chronic); I10 Essential (primary) hypertension

== ENCOUNTER → 2022-07-03 | Outpatient (REF) | payer MEDICARE ==
[2022-07-03 11:31] LABS: CREATININE, URINE 55.4 MG/DL
[2022-07-03 11:32] LABS: MAU/CREAT RATIO 43.3 MCG/MG (0.0-30.0)
== END ==
LOC: M SFHCPLAZ 09:59
PROVIDERS: ATTEND Internal Medicine Hematology
DX: E11.9 Type 2 diabetes mellitus without complications (principal)

== ENCOUNTER 2022-07-15 08:29 | Outpatient (RCR) | payer MEDICARE | END 2022-07-16 | LOC: M PT 08:29 | PROVIDERS: ATTEND Family Medicine | DX: K92.2 Gastrointestinal hemorrhage, unspecified (principal); R26.81 Unsteadiness on feet ==

== ENCOUNTER 2022-07-19 08:19 | Outpatient (CLI) | payer MEDICARE ==
[~2022-07-19] VITALS: Ht 152.4 cm; Wt 59.8 kg
[~2022-07-19 08:19] MED LIST changes: +ALBUTEROL SULFATE 2.5MG/0.5ML INH NEB SOLN INH PRN; +EPINEPHrine INJ 1 MG/ML 1ML AMP IM PRN; +diphenhydrAMINE 50MG/ML VIAL IV PRN; +methylPREDNISolone 125MG 2ML VIAL IV PRN
[2022-07-19] MEDS ORDERED: NS 1,000 ML IV SCH (08:30)
[2022-07-19] MEDS ORDERED: FERRIC CARBOXYMALTOSE INJ 750 MG in NS 250 ML (>50kg) IV ONE ×3 (08:30)
[2022-07-19 08:35] VITALS: BP 138/78
[2022-07-19 10:40] VITALS: BP 142/78
== END 2022-07-19 10:40 | disposition home or self-care (01) ==
LOC: M INFU 08:19
PROVIDERS: ATTEND Internal Medicine Hematology
DX: D50.9 Iron deficiency anemia, unspecified (principal); Z88.5 Allergy status to narcotic agent
CPT/HCPCS: 96365; 96366; J1439

== ENCOUNTER → 2022-08-01 | Outpatient (CLI) | payer MEDICARE ==
[~2022-08-01] VITALS: Ht 152.4 cm; Wt 59.8 kg
[~2022-08-01] MED LIST changes: -ALBUTEROL SULFATE 2.5MG/0.5ML INH NEB SOLN INH PRN; +CYMB60CA4 PO; +D3 S1CAP3 PO; -EPINEPHrine INJ 1 MG/ML 1ML AMP IM PRN; +IRON65TA2 PO; +XANA0.5T PO; -diphenhydrAMINE 50MG/ML VIAL IV PRN; -methylPREDNISolone 125MG 2ML VIAL IV PRN
[2022-08-01 13:46] VITALS: BP 156/91
== END ==
LOC: M PAL 13:40
PROVIDERS: ATTEND Nurse Practitioner Adult Health
DX: K74.60 Unspecified cirrhosis of liver (principal); I85.00 Esophageal varices without bleeding; K76.82 Hepatic encephalopathy; C64.9 Malignant neoplasm of unspecified kidney, except renal pelvis; E11.9 Type 2 diabetes mellitus without complications; G89.29 Other chronic pain; M54.2 Cervicalgia; R53.1 Weakness; R26.81 Unsteadiness on feet; I10 Essential (primary) hypertension; E78.5 Hyperlipidemia, unspecified; K76.0 Fatty (change of) liver, not elsewhere classified; M48.00 Spinal stenosis, site unspecified; Z90.710 Acquired absence of both cervix and uterus; Z80.9 Family history of malignant neoplasm, unspecified; M96.1 Postlaminectomy syndrome, not elsewhere classified; Z51.5 Encounter for palliative care; Z79.82 Long term (current) use of aspirin; Z79.899 Other long term (current) drug therapy; Z79.891 Long term (current) use of opiate analgesic; Z11.52 Encounter for screening for COVID-19
CPT/HCPCS: 87635; G0463

== ENCOUNTER → 2022-08-01 | Outpatient (CLI) | payer MEDICARE | LOC: M LABSMTC 10:44 | PROVIDERS: ATTEND Anesthesiology | DX: Z01.818 Encounter for other preprocedural examination (principal); Z11.52 Encounter for screening for COVID-19 ==

== ENCOUNTER 2022-08-06 10:51 | Day surgery (SDC) | payer MEDICARE ==
[~2022-08-06] VITALS: Ht 152.4 cm; Wt 59.6 kg
[~2022-08-06 10:51] MED LIST changes: +NS 1,000 ML IV ONE
[2022-08-06] MEDS ORDERED: propofoL 200 MG/20 ML VIAL As Ordered ONE (13:33)
[2022-08-06] MEDS ORDERED: fentaNYL 100 MCG/2 ML INJECTION As Ordered ONE (13:33)
[2022-08-06] MEDS ORDERED: LIDOCAINE 2% 100MG/5ML SDV (FOR ANES.) As Ordered ONE (13:33)
[2022-08-06] MEDS ORDERED: ONDANSETRON 4MG 2ML VIAL As Ordered ONE (13:42)
[2022-08-06 14:20] VITALS: BP 170/96
== END 2022-08-06 14:39 | disposition home or self-care (01) ==
LOC: M OPP 10:51
PROVIDERS: ATTEND Internal Medicine Gastroenterology
DX: I85.01 Esophageal varices with bleeding (principal); K29.70 Gastritis, unspecified, without bleeding; I10 Essential (primary) hypertension; E11.9 Type 2 diabetes mellitus without complications; K74.69 Other cirrhosis of liver; G25.81 Restless legs syndrome; Z79.82 Long term (current) use of aspirin; Z79.83 Long term (current) use of bisphosphonates; Z79.899 Other long term (current) drug therapy; Z88.5 Allergy status to narcotic agent; Z85.528 Personal history of other malignant neoplasm of kidney; Z82.0 Family history of epilepsy and other diseases of the nervous system; Z80.0 Family history of malignant neoplasm of digestive organs
CPT/HCPCS: 43244; J2405; J3010

== ENCOUNTER → 2022-08-16 | Outpatient (RCR) | payer MEDICARE ==
[~2022-08-16] MED LIST changes: -NS 1,000 ML IV ONE
== END ==
LOC: M PT 08-14 09:03
PROVIDERS: ATTEND Family Medicine
DX: R26.89 Other abnormalities of gait and mobility (principal)

== ENCOUNTER → 2022-08-21 | Outpatient (CLI) | payer MEDICARE ==
[~2022-08-21] MED LIST changes: +ISOVUE-370 76% 100ML VIAL As Ordered ONE
== END ==
LOC: M RAD 11:07
PROVIDERS: ATTEND Internal Medicine Nephrology
DX: K74.60 Unspecified cirrhosis of liver (principal); N28.89 Other specified disorders of kidney and ureter; Z85.528 Personal history of other malignant neoplasm of kidney

== ENCOUNTER → 2022-08-23 | Outpatient (CLI) | payer MEDICARE ==
[~2022-08-23] MED LIST changes: -ISOVUE-370 76% 100ML VIAL As Ordered ONE
== END ==
LOC: M WHC 09:11
PROVIDERS: ATTEND Internal Medicine Gastroenterology
DX: K74.60 Unspecified cirrhosis of liver (principal); R93.5 Abnormal findings on diagnostic imaging of other abdominal regions, including retroperitoneum

== ENCOUNTER 2022-09-06 12:45 | Outpatient (RCR) | payer MEDICARE | END 2022-09-15 | LOC: M PT 12:45 | PROVIDERS: ATTEND Family Medicine | DX: M62.81 Muscle weakness (generalized) (principal); R53.81 Other malaise ==

== ENCOUNTER → 2022-09-12 | Outpatient (CLI) | payer MEDICARE ==
[~2022-09-12] VITALS: Ht 152.4 cm; Wt 60.2 kg
[2022-09-12 11:16] VITALS: BP 144/86
== END ==
LOC: M PAL 11:10
PROVIDERS: ATTEND Nurse Practitioner Adult Health
DX: K74.60 Unspecified cirrhosis of liver (principal); K76.82 Hepatic encephalopathy; G89.29 Other chronic pain; M25.559 Pain in unspecified hip; M79.601 Pain in right arm; M54.2 Cervicalgia; K76.0 Fatty (change of) liver, not elsewhere classified; M96.1 Postlaminectomy syndrome, not elsewhere classified; C64.9 Malignant neoplasm of unspecified kidney, except renal pelvis; Z51.5 Encounter for palliative care; Z79.899 Other long term (current) drug therapy; Z79.891 Long term (current) use of opiate analgesic; E11.9 Type 2 diabetes mellitus without complications; D50.9 Iron deficiency anemia, unspecified; Z90.710 Acquired absence of both cervix and uterus

== ENCOUNTER → 2022-09-25 | Outpatient (CLI) | payer MEDICARE ==
[2022-09-25 10:51] LABS: HEMATOCRIT 38.2 % (36.0-47.0); HEMOGLOBIN 12.9 g/dl (12.0-15.5); MEAN CORPUSCULAR HGB CONC 33.8 g/dl (32.0-36.5); MEAN CORPUSCULAR VOLUME 94.8 fl (80.0-96.0); PLATELET COUNT, AUTOMATED 109 10^3/uL (150-450); RED BLOOD COUNT 4.03 10^6/uL (4.00-5.40); WHITE BLOOD COUNT 5.5 10^3/uL (4.0-10.0)
[2022-09-25 10:53] LABS: ALBUMIN 3.1 G/DL (3.2-5.2); ALKALINE PHOSPHATASE 88 U/L (46-116); ALT/SGPT 56 U/L (7.0-40); AST/SGOT 40 U/L (<34); BILIRUBIN,TOTAL 1.4 MG/DL (0.3-1.2); BLOOD UREA NITROGEN 15 MG/DL (9-23); C REACTIVE PROTEIN QUANTITATIV < 0.40 MG/DL (<1.0); CALCIUM LEVEL 8.8 MG/DL (8.3-10.6); CARBON DIOXIDE LEVEL 31 MMOL/L (20-31); CHLORIDE LEVEL 106 MMOL/L (98-107); CHOLESTEROL LEVEL 170 MG/DL (<200); CHOLESTEROL RISK RATIO 2.63 (<5); CREATININE FOR GFR 0.68 MG/DL (0.55-1.30); FREE T4 0.81 NG/DL (0.89-1.76); GLOMERULAR FILTRATION RATE > 60.0 (>32); GLUCOSE, FASTING 89 MG/DL (74-106); HDL CHOLESTEROL 64.5 MG/DL (>40); IRON (FE) 91 UG/DL (50-170); LDL CHOLESTEROL 92.9 MG/DL (<100); NON-HDL-C 105.5 MG/DL; PERCENT SATURATION 36.8 % (13.2-45.0); POTASSIUM SERUM 3.4 MMOL/L (3.5-5.1); SODIUM LEVEL 140 MMOL/L (136-145); TOTAL IRON BINDING CAPACITY 247 UG/DL (250-425); TOTAL PROTEIN 6.3 G/DL (5.7-8.2); TRIGLYCERIDES LEVEL 63 MG/DL (<150)
[2022-09-25 10:54] LABS: THYROID STIMULATING HORMONE 0.761 uIU/ML (0.55-4.78); TOTAL 25(OH) VITAMIN D 42.5 NG/ML (20.0-100.0)
[2022-09-25 10:55] LABS: VITAMIN B12 LEVEL 527 PG/ML (211-911)
[2022-09-25 11:07] LABS: HEMOGLOBIN A1c 6.3 % (4.0-6.0)
[2022-09-25 11:11] LABS: CREATININE, URINE 71.3 MG/DL; MAU/CREAT RATIO 63.1 MCG/MG (0.0-30.0)
== END ==
LOC: M PLALAB 07:19
PROVIDERS: ATTEND Internal Medicine Hematology
DX: K76.0 Fatty (change of) liver, not elsewhere classified (principal); G25.81 Restless legs syndrome; Z79.899 Other long term (current) drug therapy

== ENCOUNTER → 2022-10-04 | Outpatient (REF) | payer MEDICARE | LOC: M LAB REF 21:14 | PROVIDERS: ATTEND Physician Assistant | DX: J02.9 Acute pharyngitis, unspecified (principal) ==

== ENCOUNTER → 2022-11-14 | Outpatient (CLI) | payer MEDICARE ==
[~2022-11-14] MED LIST changes: +CYAN-1 PO; -CYAN100050 PO; -K-TA10TA2 PO; +POTA-165 PO; -ROPI0.5T3 PO; +ROPI0.5T33 PO
== END ==
LOC: M PAL 07:41
PROVIDERS: ATTEND Nurse Practitioner Adult Health
DX: C64.9 Malignant neoplasm of unspecified kidney, except renal pelvis (principal); Z98.890 Other specified postprocedural states; K74.60 Unspecified cirrhosis of liver; G89.29 Other chronic pain; M54.2 Cervicalgia; M19.90 Unspecified osteoarthritis, unspecified site; Z51.5 Encounter for palliative care; G47.00 Insomnia, unspecified; R63.4 Abnormal weight loss; R53.83 Other fatigue; R26.9 Unspecified abnormalities of gait and mobility; G25.81 Restless legs syndrome; Z79.899 Other long term (current) drug therapy; Z80.9 Family history of malignant neoplasm, unspecified; Z79.85 Long-term (current) use of injectable non-insulin antidiabetic drugs

== ENCOUNTER → 2022-12-02 | Outpatient (REF) | payer MEDICARE ==
[2022-12-02 13:44] LABS: APPEARANCE, URINE CLEAR (CLEAR); BACTERIA, URINE AUTO 1+ (NEGATIVE); BILIRUBIN, URINE AUTO NEGATIVE (NEGATIVE); BLOOD, URINE BLOOD NEGATIVE (NEGATIVE); COLOR, URINE YELLOW (YELLOW); GLUCOSE, URINE (UA) AUTO NEGATIVE (NEGATIVE); KETONE, URINE AUTO NEGATIVE (NEGATIVE); LEUKOCYTE ESTERASE, URINE AUTO NEGATIVE (NEGATIVE); NITRITE, URINE AUTO NEGATIVE (NEGATIVE); PROTEIN, URINE AUTO NEGATIVE (NEGATIVE); RBC, URINE AUTO 0 /HPF (0-3); SPECIFIC GRAVITY URINE AUTO 1.012 (1.002-1.035); SQUAMOUS EPITHELIAL CELL UR AU 0 /HPF (0-6); UROBILINOGEN, URINE AUTO 0.2 mg/dL (0.0-2.0); WBC, URINE AUTO 3 /HPF (0-3)
== END ==
LOC: M SFHCPLAZ 13:02
PROVIDERS: ATTEND Internal Medicine Hematology
DX: R31.9 Hematuria, unspecified (principal)

== ENCOUNTER → 2022-12-11 | Outpatient (CLI) | payer MEDICARE ==
[2022-12-11 10:43] LABS: HEMATOCRIT 38.4 % (36.0-47.0); HEMOGLOBIN 13.4 g/dl (12.0-15.5); MEAN CORPUSCULAR HEMOGLOBIN 33.3 pg (27.0-33.0); MEAN CORPUSCULAR HGB CONC 34.9 g/dl (32.0-36.5); MEAN CORPUSCULAR VOLUME 95.3 fl (80.0-96.0); PLATELET COUNT, AUTOMATED 146 10^3/uL (150-450); RED BLOOD COUNT 4.03 10^6/uL (4.00-5.40)
[2022-12-11 11:05] LABS: HEMOGLOBIN A1c 6.2 % (4.0-6.0)
[2022-12-11 11:13] LABS: C REACTIVE PROTEIN QUANTITATIV < 0.40 MG/DL (<1.0)
[2022-12-11 11:14] LABS: IRON (FE) 92 UG/DL (50-170); PERCENT SATURATION 37.2 % (13.2-45.0); TOTAL IRON BINDING CAPACITY 247 UG/DL (250-425)
[2022-12-11 11:18] LABS: ALBUMIN 3.2 G/DL (3.2-5.2); ALKALINE PHOSPHATASE 67 U/L (46-116); ALT/SGPT 53 U/L (7.0-40); AST/SGOT 34 U/L (<34); BILIRUBIN,TOTAL 1.8 MG/DL (0.3-1.2); BLOOD UREA NITROGEN 16 MG/DL (9-23); CALCIUM LEVEL 9.1 MG/DL (8.3-10.6); CARBON DIOXIDE LEVEL 26 MMOL/L (20-31); CHLORIDE LEVEL 105 MMOL/L (98-107); CHOLESTEROL LEVEL 178 MG/DL (<200); CHOLESTEROL RISK RATIO 2.64 (<5); CREATININE FOR GFR 0.69 MG/DL (0.55-1.30); FREE T4 0.91 NG/DL (0.89-1.76); GLOMERULAR FILTRATION RATE > 60.0 (>32); GLUCOSE, FASTING 126 MG/DL (74-106); HDL CHOLESTEROL 67.2 MG/DL (>40); LDL CHOLESTEROL 100.6 MG/DL (<100); NON-HDL-C 110.8 MG/DL; POTASSIUM SERUM 3.6 MMOL/L (3.5-5.1); SODIUM LEVEL 140 MMOL/L (136-145); THYROID STIMULATING HORMONE 1.362 uIU/ML (0.55-4.78); TOTAL 25(OH) VITAMIN D 44.9 NG/ML (20.0-100.0); TOTAL PROTEIN 6.4 G/DL (5.7-8.2); TRIGLYCERIDES LEVEL 51 MG/DL (<150); VITAMIN B12 LEVEL 648 PG/ML (211-911)
[2022-12-11 14:07] LABS: APPEARANCE, URINE CLEAR (CLEAR); BACTERIA, URINE AUTO 1+ (NEGATIVE); BILIRUBIN, URINE AUTO NEGATIVE (NEGATIVE); BLOOD, URINE BLOOD NEGATIVE (NEGATIVE); COLOR, URINE YELLOW (YELLOW); GLUCOSE, URINE (UA) AUTO NEGATIVE (NEGATIVE); KETONE, URINE AUTO NEGATIVE (NEGATIVE); LEUKOCYTE ESTERASE, URINE AUTO TRACE (NEGATIVE); MUCUS, URINE SMALL (NEGATIVE); NITRITE, URINE AUTO NEGATIVE (NEGATIVE); PROTEIN, URINE AUTO NEGATIVE (NEGATIVE); RBC, URINE AUTO 1 /HPF (0-3); SPECIFIC GRAVITY URINE AUTO 1.018 (1.002-1.035); SQUAMOUS EPITHELIAL CELL UR AU 0 /HPF (0-6); WBC, URINE AUTO 3 /HPF (0-3)
== END ==
LOC: M PLALAB 08:04
PROVIDERS: ATTEND Internal Medicine Hematology
DX: E11.9 Type 2 diabetes mellitus without complications (principal); E61.1 Iron deficiency; R31.9 Hematuria, unspecified

== ENCOUNTER 2023-01-23 06:39 | Day surgery (SDC) | payer MEDICARE ==
[~2023-01-23] VITALS: Ht 152.4 cm; Wt 59.4 kg
[~2023-01-23 06:39] MED LIST changes: -COZA1TAB PO; +LISI5TAB11 PO; +LOSA-527 PO; +NS 1,000 ML IV ONE; +PRAM0.252 PO; +TRAZ-252 PO
[2023-01-23] MEDS ORDERED: propofoL 200 MG/20 ML VIAL As Ordered ONE (07:01)
[2023-01-23] MEDS ORDERED: LIDOCAINE 2% 100MG/5ML SDV (FOR ANES.) As Ordered ONE (07:01)
[2023-01-23 08:02] VITALS: TEMP 98.1
[2023-01-23 08:20] VITALS: BP 172/80; O2SAT 95
== END 2023-01-23 08:28 | disposition home or self-care (01) ==
LOC: M OPP 06:39
PROVIDERS: ATTEND Internal Medicine Gastroenterology
DX: I85.00 Esophageal varices without bleeding (principal); K29.70 Gastritis, unspecified, without bleeding

== ENCOUNTER → 2023-02-05 | Outpatient (CLI) | payer MEDICARE ==
[~2023-02-05] MED LIST changes: -NS 1,000 ML IV ONE
[2023-02-05 14:16] LABS: BASO % 0.6 % (0.0-1.0); EOS # 0.1 10^3/uL (0.0-0.5); EOS % 1.2 % (0.0-3.0); HEMATOCRIT 36.3 % (36.0-47.0); LYMPH # 1.9 10^3/uL (1.5-5.0); LYMPH % 39.3 % (24.0-44.0); MEAN CORPUSCULAR HEMOGLOBIN 32.7 pg (27.0-33.0); MEAN CORPUSCULAR HGB CONC 33.1 g/dl (32.0-36.5); MEAN CORPUSCULAR VOLUME 98.9 fl (80.0-96.0); MONO # 0.5 10^3/uL (0.0-0.8); MONO % 10.3 % (2.0-8.0); NEUTROPHILS # 2.3 10^3/uL (1.5-8.5); NEUTROPHILS % 48.4 % (36.0-66.0); PLATELET COUNT, AUTOMATED 109 10^3/uL (150-450); RED BLOOD COUNT 3.67 10^6/uL (4.00-5.40); WHITE BLOOD COUNT 4.8 10^3/uL (4.0-10.0)
[2023-02-05 14:32] LABS: ALBUMIN 3.2 G/DL (3.2-5.2); ALKALINE PHOSPHATASE 65 U/L (46-116); ALT/SGPT 39 U/L (7.0-40); AST/SGOT 31 U/L (<34); BILIRUBIN,TOTAL 1.1 MG/DL (0.3-1.2); BLOOD UREA NITROGEN 16 MG/DL (9-23); CALCIUM LEVEL 8.2 MG/DL (8.3-10.6); CARBON DIOXIDE LEVEL 29 MMOL/L (20-31); CHLORIDE LEVEL 107 MMOL/L (98-107); CREATININE FOR GFR 0.74 MG/DL (0.55-1.30); GLOMERULAR FILTRATION RATE > 60.0 (>32); GLUCOSE, FASTING 122 MG/DL (74-106); POTASSIUM SERUM 4.4 MMOL/L (3.5-5.1); SODIUM LEVEL 141 MMOL/L (136-145); TOTAL PROTEIN 6.1 G/DL (5.7-8.2)
== END ==
LOC: M PLALAB 10:20
PROVIDERS: ATTEND Internal Medicine Hematology
DX: I10 Essential (primary) hypertension (principal)

== ENCOUNTER 2023-03-24 14:42 | Emergency (ER) | payer MEDICARE ==
[2023-03-24 14:42] VITALS: TEMP 97.7
[~2023-03-24 14:42] MED LIST changes: +GLIP5TAB17 PO; -GLIP5TAB8 PO
[2023-03-24 15:56] LABS: BASO % 0.6 % (0.0-1.0); EOS # 0.1 10^3/uL (0.0-0.5); EOS % 1.6 % (0.0-3.0); HEMATOCRIT 37.2 % (36.0-47.0); HEMOGLOBIN 12.8 g/dl (12.0-15.5); LYMPH # 2.4 10^3/uL (1.5-5.0); LYMPH % 38.2 % (24.0-44.0); MEAN CORPUSCULAR HGB CONC 34.4 g/dl (32.0-36.5); MEAN CORPUSCULAR VOLUME 95.9 fl (80.0-96.0); MONO # 0.7 10^3/uL (0.0-0.8); MONO % 11.6 % (2.0-8.0); NEUTROPHILS % 47.8 % (36.0-66.0); PLATELET COUNT, AUTOMATED 127 10^3/uL (150-450); RED BLOOD COUNT 3.88 10^6/uL (4.00-5.40); WHITE BLOOD COUNT 6.2 10^3/uL (4.0-10.0)
[2023-03-24 16:05] LABS: INR 1.21
[2023-03-24 16:06] LABS: PARTIAL THROMBOPLASTIN TIME 36.1 SECONDS (24.8-34.2)
[2023-03-24 16:16] LABS: LIPASE 50 U/L (12-53)
[2023-03-24 16:18] LABS: ALBUMIN 3.4 G/DL (3.2-5.2); ALKALINE PHOSPHATASE 72 U/L (46-116); ALT/SGPT 56 U/L (7.0-40); AST/SGOT 48 U/L (<34); BILIRUBIN,DIRECT 0.3 MG/DL (<0.4); BLOOD UREA NITROGEN 18 MG/DL (9-23); CALCIUM LEVEL 8.6 MG/DL (8.3-10.6); CARBON DIOXIDE LEVEL 24 MMOL/L (20-31); CHLORIDE LEVEL 110 MMOL/L (98-107); CPK CREATINE PHOSPHOKINASE 88 U/L (34-145); CREATININE FOR GFR 0.71 MG/DL (0.55-1.30); GLOMERULAR FILTRATION RATE > 60.0 (>32); GLUCOSE, FASTING 109 MG/DL (74-106); MB/CK RELATIVE INDEX 1.13 (< OR =4); POTASSIUM SERUM 3.8 MMOL/L (3.5-5.1); SODIUM LEVEL 144 MMOL/L (136-145); TOTAL PROTEIN 6.8 G/DL (5.7-8.2)
[2023-03-24 16:20] LABS: FREE T4 0.87 NG/DL (0.89-1.76); THYROID STIMULATING HORMONE 1.399 uIU/ML (0.55-4.78)
[2023-03-24 17:45] VITALS: BP 145/75
[2023-03-24 17:49] LABS: CK-MB VALUE MASS 1.1 NG/ML (<3.6); MB/CK RELATIVE INDEX 0.98 (< OR =4)
[2023-03-24] MEDS ORDERED: ISOVUE-370 76% 100ML VIAL As Ordered ONE (17:57)
[2023-03-24] MEDS ORDERED: cefTRIAXone SOD 1 GM in D5W MINI-BAG PLUS 50 ML IV ONE (19:25)
[2023-03-24] MEDS ORDERED: CEFD300C PO (21:41)
[2023-03-24 21:42] VITALS: O2SAT 97
== END 2023-03-24 22:01 | disposition home or self-care (01) ==
LOC: M ED 14:42
DX: N39.0 Urinary tract infection, site not specified (principal); B96.20 Unspecified Escherichia coli [E. coli] as the cause of diseases classified elsewhere; R60.0 Localized edema; R06.02 Shortness of breath; E11.9 Type 2 diabetes mellitus without complications; I10 Essential (primary) hypertension; G25.81 Restless legs syndrome; E55.9 Vitamin D deficiency, unspecified; K74.60 Unspecified cirrhosis of liver; K58.9 Irritable bowel syndrome, unspecified; M48.00 Spinal stenosis, site unspecified
CPT/HCPCS: 71045; 71275; 74177; 80048; 80076; 81001; 82550; 82553; 83690; 83880; 84439; 84443; 84484; 85025; 85610; 85730; 87088; 87186; 93005; 93041; 93970; 94760; 96365; 99285; J0696; Q9967

== ENCOUNTER → 2023-03-27 | Outpatient (CLI) | payer MEDICARE ==
[~2023-03-27] MED LIST changes: +CEFD300C PO
== END ==
LOC: M RAD 08:22
PROVIDERS: ATTEND Internal Medicine Gastroenterology
DX: K74.60 Unspecified cirrhosis of liver (principal)

== ENCOUNTER → 2023-04-15 | Outpatient (CLI) | payer MEDICARE ==
[2023-04-15 11:07] LABS: APPEARANCE, URINE CLOUDY (CLEAR); BACTERIA, URINE AUTO 1+ (NEGATIVE); BILIRUBIN, URINE AUTO NEGATIVE (NEGATIVE); BLOOD, URINE BLOOD NEGATIVE (NEGATIVE); COLOR, URINE YELLOW (YELLOW); GLUCOSE, URINE (UA) AUTO NEGATIVE (NEGATIVE); KETONE, URINE AUTO NEGATIVE (NEGATIVE); LEUKOCYTE ESTERASE, URINE AUTO 3+ (NEGATIVE); NITRITE, URINE AUTO POSITIVE (NEGATIVE); PROTEIN, URINE AUTO NEGATIVE (NEGATIVE); RBC, URINE AUTO 2 /HPF (0-3); SPECIFIC GRAVITY URINE AUTO 1.015 (1.002-1.035); SQUAMOUS EPITHELIAL CELL UR AU 1 /HPF (0-6); UROBILINOGEN, URINE AUTO 0.2 mg/dL (0.0-2.0); WBC, URINE AUTO TNTC /HPF (0-3)
[2023-04-15 11:10] LABS: HEMATOCRIT 37.4 % (36.0-47.0); HEMOGLOBIN 12.5 g/dl (12.0-15.5); MEAN CORPUSCULAR HEMOGLOBIN 32.6 pg (27.0-33.0); MEAN CORPUSCULAR HGB CONC 33.4 g/dl (32.0-36.5); MEAN CORPUSCULAR VOLUME 97.7 fl (80.0-96.0); PLATELET COUNT, AUTOMATED 150 10^3/uL (150-450); RED BLOOD COUNT 3.83 10^6/uL (4.00-5.40); WHITE BLOOD COUNT 6.2 10^3/uL (4.0-10.0)
[2023-04-15 11:24] LABS: HEMOGLOBIN A1c 6.3 % (4.0-6.0)
[2023-04-15 11:27] LABS: CREATININE, URINE 73.2 MG/DL; MAU/CREAT RATIO 35.5 MCG/MG (0.0-30.0)
[2023-04-15 12:10] LABS: TOTAL 25(OH) VITAMIN D 31.8 NG/ML (20.0-100.0)
[2023-04-15 12:11] LABS: C REACTIVE PROTEIN QUANTITATIV < 0.40 MG/DL (<1.0); THYROID STIMULATING HORMONE 1.284 uIU/ML (0.55-4.78)
[2023-04-15 12:12] LABS: ALBUMIN 3.3 G/DL (3.2-5.2); ALKALINE PHOSPHATASE 81 U/L (46-116); ALT/SGPT 68 U/L (7.0-40); AST/SGOT 48 U/L (<34); BILIRUBIN,TOTAL 1.2 MG/DL (0.3-1.2); BLOOD UREA NITROGEN 29 MG/DL (9-23); CALCIUM LEVEL 8.9 MG/DL (8.3-10.6); CARBON DIOXIDE LEVEL 29 MMOL/L (20-31); CHLORIDE LEVEL 106 MMOL/L (98-107); CHOLESTEROL LEVEL 198 MG/DL (<200); CHOLESTEROL RISK RATIO 2.89 (<5); CREATININE FOR GFR 0.84 MG/DL (0.55-1.30); GLOMERULAR FILTRATION RATE > 60.0 (>32); GLUCOSE, FASTING 133 MG/DL (74-106); HDL CHOLESTEROL 68.4 MG/DL (>40); LDL CHOLESTEROL 114.2 MG/DL (<100); NON-HDL-C 129.6 MG/DL; POTASSIUM SERUM 4.4 MMOL/L (3.5-5.1); SODIUM LEVEL 143 MMOL/L (136-145); TOTAL PROTEIN 6.7 G/DL (5.7-8.2); TRIGLYCERIDES LEVEL 77 MG/DL (<150)
[2023-04-15 12:13] LABS: VITAMIN B12 LEVEL 657 PG/ML (211-911)
[2023-04-15 12:14] LABS: FREE T4 0.88 NG/DL (0.89-1.76)
== END ==
LOC: M PLALAB 08:33
PROVIDERS: ATTEND Internal Medicine Hematology
DX: E11.9 Type 2 diabetes mellitus without complications (principal)

== ENCOUNTER → 2023-04-16 | Outpatient (REF) | payer MEDICARE | LOC: M SFHCPLAZ 17:04 | PROVIDERS: ATTEND Internal Medicine Hematology | DX: N30.01 Acute cystitis with hematuria (principal) ==

== ENCOUNTER → 2023-04-22 | Outpatient (CLI) | payer MEDICARE | LOC: M CARPUL 09:05 | PROVIDERS: ATTEND Internal Medicine Hematology | DX: I50.42 Chronic combined systolic (congestive) and diastolic (congestive) heart failure (principal); I08.0 Rheumatic disorders of both mitral and aortic valves ==

== ENCOUNTER 2023-06-08 16:41 | Emergency (ER) | payer MEDICARE ==
[~2023-06-08] VITALS: Ht 149.9 cm; Wt 63.5 kg
[2023-06-08 16:42] VITALS: TEMP 98.4
[2023-06-08 19:16] VITALS: O2SAT 97
[2023-06-08] MEDS ORDERED: predniSONE 20 MG TAB PO ONE (20:00)
[2023-06-08] MEDS ORDERED: PRED20TA PO (20:00)
[2023-06-08] MEDS ORDERED: CYCL5TAB PO (20:00)
[2023-06-08] MEDS ORDERED: CYCLOBENZAPRINE 5MG TABLET PO ONE (20:00)
[2023-06-08 20:17] VITALS: BP 162/88
== END 2023-06-08 20:17 | disposition home or self-care (01) ==
LOC: M ED 16:41
DX: S76.012A Strain of muscle, fascia and tendon of left hip, initial encounter (principal); X58.XXXA Exposure to other specified factors, initial encounter; Y92.9 Unspecified place or not applicable; Y93.9 Activity, unspecified; Y99.9 Unspecified external cause status; E11.9 Type 2 diabetes mellitus without complications; I10 Essential (primary) hypertension; G25.81 Restless legs syndrome; Z79.4 Long term (current) use of insulin; Z79.899 Other long term (current) drug therapy
CPT/HCPCS: 73502; 99283; J7512

== ENCOUNTER → 2023-07-15 | Outpatient (CLI) | payer MEDICARE ==
[~2023-07-15] MED LIST changes: +CYCL5TAB PO; +PRED20TA PO
[2023-07-15 13:52] LABS: BLOOD UREA NITROGEN 16 MG/DL (9-23); CALCIUM LEVEL 8.9 MG/DL (8.3-10.6); CARBON DIOXIDE LEVEL 29 MMOL/L (20-31); CHLORIDE LEVEL 103 MMOL/L (98-107); CREATININE FOR GFR 0.63 MG/DL (0.55-1.30); GLOMERULAR FILTRATION RATE > 60.0 (>32); GLUCOSE, FASTING 149 MG/DL (74-106); POTASSIUM SERUM 3.8 MMOL/L (3.5-5.1); SODIUM LEVEL 137 MMOL/L (136-145)
== END ==
LOC: M PLALAB 09:07
PROVIDERS: ATTEND Internal Medicine Hematology
DX: I50.42 Chronic combined systolic (congestive) and diastolic (congestive) heart failure (principal)

== ENCOUNTER → 2023-07-23 | Outpatient (CLI) | payer MEDICARE | LOC: M PAIN 08:30 | PROVIDERS: ATTEND Anesthesiology | DX: M96.1 Postlaminectomy syndrome, not elsewhere classified (principal); M79.18 Myalgia, other site; M47.816 Spondylosis without myelopathy or radiculopathy, lumbar region; K74.60 Unspecified cirrhosis of liver; Z87.448 Personal history of other diseases of urinary system; I10 Essential (primary) hypertension; G89.29 Other chronic pain; M54.50 Low back pain, unspecified; E11.9 Type 2 diabetes mellitus without complications; G25.81 Restless legs syndrome; E55.9 Vitamin D deficiency, unspecified; M81.0 Age-related osteoporosis without current pathological fracture; K58.9 Irritable bowel syndrome, unspecified; Z79.84 Long term (current) use of oral hypoglycemic drugs; Z79.891 Long term (current) use of opiate analgesic; Z79.899 Other long term (current) drug therapy; Z88.5 Allergy status to narcotic agent | CPT/HCPCS: 76000; G0463 ==

== ENCOUNTER → 2023-08-11 | Outpatient (CLI) | payer MEDICARE ==
[2023-08-11 12:13] LABS: HEMATOCRIT 38.5 % (36.0-47.0); HEMOGLOBIN 13.2 g/dl (12.0-15.5); MEAN CORPUSCULAR HEMOGLOBIN 32.1 pg (27.0-33.0); MEAN CORPUSCULAR HGB CONC 34.3 g/dl (32.0-36.5); MEAN CORPUSCULAR VOLUME 93.7 fl (80.0-96.0); PLATELET COUNT, AUTOMATED 173 10^3/uL (150-450); RED BLOOD COUNT 4.11 10^6/uL (4.00-5.40); WHITE BLOOD COUNT 5.8 10^3/uL (4.0-10.0)
[2023-08-11 12:15] LABS: IRON (FE) 81 UG/DL (50-170)
[2023-08-11 12:16] LABS: ALBUMIN 3.5 G/DL (3.2-5.2); ALKALINE PHOSPHATASE 66 U/L (46-116); ALT/SGPT 38 U/L (7.0-40); AST/SGOT 28 U/L (<34); BLOOD UREA NITROGEN 23 MG/DL (9-23); CALCIUM LEVEL 9.1 MG/DL (8.3-10.6); CARBON DIOXIDE LEVEL 28 MMOL/L (20-31); CHLORIDE LEVEL 102 MMOL/L (98-107); CHOLESTEROL LEVEL 176 MG/DL (<200); CHOLESTEROL RISK RATIO 2.53 (<5); CREATININE FOR GFR 0.76 MG/DL (0.55-1.30); GLOMERULAR FILTRATION RATE > 60.0 (>32); GLUCOSE, FASTING 144 MG/DL (74-106); HDL CHOLESTEROL 69.3 MG/DL (>40); LDL CHOLESTEROL 91.5 MG/DL (<100); NON-HDL-C 106.7 MG/DL; POTASSIUM SERUM 3.8 MMOL/L (3.5-5.1); SODIUM LEVEL 137 MMOL/L (136-145); TRIGLYCERIDES LEVEL 76 MG/DL (<150)
[2023-08-11 12:17] LABS: FERRITIN 163.8 NG/ML (7.3-270.7); FREE T4 0.99 NG/DL (0.89-1.76); THYROID STIMULATING HORMONE 1.394 uIU/ML (0.55-4.78); TOTAL 25(OH) VITAMIN D 41.3 NG/ML (20.0-100.0)
[2023-08-11 12:18] LABS: VITAMIN B12 LEVEL 639 PG/ML (211-911)
[2023-08-11 12:29] LABS: CREATININE, URINE 88.8 MG/DL
[2023-08-11 12:30] LABS: MAU/CREAT RATIO 6.7 MCG/MG (0.0-30.0)
[2023-08-11 12:33] LABS: HEMOGLOBIN A1c 6.4 % (4.0-6.0)
== END ==
LOC: M PLALAB 08:03
PROVIDERS: ATTEND Internal Medicine Hematology
DX: K76.0 Fatty (change of) liver, not elsewhere classified (principal); M19.90 Unspecified osteoarthritis, unspecified site; E07.9 Disorder of thyroid, unspecified

== ENCOUNTER → 2023-08-20 | Outpatient (CLI) | payer MEDICARE ==
[2023-08-20 09:46] LABS: HEMATOCRIT 38.4 % (36.0-47.0); HEMOGLOBIN 13.2 g/dl (12.0-15.5); MEAN CORPUSCULAR HEMOGLOBIN 32.4 pg (27.0-33.0); MEAN CORPUSCULAR HGB CONC 34.4 g/dl (32.0-36.5); MEAN CORPUSCULAR VOLUME 94.1 fl (80.0-96.0); PLATELET COUNT, AUTOMATED 133 10^3/uL (150-450); RED BLOOD COUNT 4.08 10^6/uL (4.00-5.40); WHITE BLOOD COUNT 5.9 10^3/uL (4.0-10.0)
[2023-08-20 09:56] LABS: INR 1.08; PROTHROMBIN TIME 13.6 SECONDS (12.5-14.5)
== END ==
LOC: M LAB 08:41
PROVIDERS: ATTEND Dentist
DX: K74.5 Biliary cirrhosis, unspecified (principal)

== ENCOUNTER → 2023-09-08 | Outpatient (CLI) | payer MEDICARE ==
[2023-09-08 08:09] LABS: BASO # 0.1 10^3/uL (0.0-0.2); BASO % 1.4 % (0.0-1.0); EOS # 0.2 10^3/uL (0.0-0.5); EOS % 4.6 % (0.0-3.0); HEMATOCRIT 37.4 % (36.0-47.0); HEMOGLOBIN 12.7 g/dl (12.0-15.5); LYMPH # 1.8 10^3/uL (1.5-5.0); MEAN CORPUSCULAR HEMOGLOBIN 32.3 pg (27.0-33.0); MEAN CORPUSCULAR VOLUME 95.2 fl (80.0-96.0); MONO # 0.4 10^3/uL (0.0-0.8); MONO % 9.7 % (2.0-8.0); NEUTROPHILS # 1.9 10^3/uL (1.5-8.5); NEUTROPHILS % 43.1 % (36.0-66.0); PLATELET COUNT, AUTOMATED 133 10^3/uL (150-450); RED BLOOD COUNT 3.93 10^6/uL (4.00-5.40); WHITE BLOOD COUNT 4.3 10^3/uL (4.0-10.0)
[2023-09-08 08:39] LABS: ALBUMIN 3.3 G/DL (3.2-5.2); ALKALINE PHOSPHATASE 77 U/L (46-116); ALT/SGPT 36 U/L (7.0-40); AST/SGOT 32 U/L (<34); BILIRUBIN,DIRECT 0.4 MG/DL (<0.4); BILIRUBIN,TOTAL 1.3 MG/DL (0.3-1.2); BLOOD UREA NITROGEN 17 MG/DL (9-23); CREATININE FOR GFR 0.69 MG/DL (0.55-1.30); GLOMERULAR FILTRATION RATE > 60.0 (>32); TOTAL PROTEIN 6.6 G/DL (5.7-8.2)
== END ==
LOC: M LAB 07:24
PROVIDERS: ATTEND Internal Medicine Gastroenterology
DX: K74.60 Unspecified cirrhosis of liver (principal)

== ENCOUNTER 2023-09-12 12:19 | Day surgery (SDC) | payer MEDICARE ==
[~2023-09-12] VITALS: Ht 149.9 cm; Wt 60.8 kg
[~2023-09-12 12:19] MED LIST changes: +DULO1CAP5 PO; +MIDO2.5T PO; +MIRT1TAB PO; +OXYC1TAB23 PO; +RAME8TAB2 PO; +ROPI2TAB46 PO
[2023-09-12] MEDS: NS 1,000 ML IV ONE (13:15)
[2023-09-12 14:17] VITALS: TEMP 97.6
[2023-09-12 14:39] VITALS: BP 182/81; O2SAT 95
== END 2023-09-12 15:09 | disposition home or self-care (01) ==
LOC: M OPP 12:19
PROVIDERS: ATTEND Internal Medicine Gastroenterology
DX: K22.2 Esophageal obstruction (principal); K74.60 Unspecified cirrhosis of liver; I85.10 Secondary esophageal varices without bleeding; K20.90 Esophagitis, unspecified without bleeding; K44.9 Diaphragmatic hernia without obstruction or gangrene; K29.70 Gastritis, unspecified, without bleeding; Z90.49 Acquired absence of other specified parts of digestive tract; E11.40 Type 2 diabetes mellitus with diabetic neuropathy, unspecified; I12.9 Hypertensive chronic kidney disease with stage 1 through stage 4 chronic kidney disease, or unspecified chronic kidney disease; E78.00 Pure hypercholesterolemia, unspecified; E11.22 Type 2 diabetes mellitus with diabetic chronic kidney disease; N18.9 Chronic kidney disease, unspecified; Z79.899 Other long term (current) drug therapy; Z79.85 Long-term (current) use of injectable non-insulin antidiabetic drugs; Z79.84 Long term (current) use of oral hypoglycemic drugs

== ENCOUNTER → 2023-09-16 | Outpatient (CLI) | payer MEDICARE ==
[~2023-09-16] MED LIST changes: +TRIAMCINOLONE ACETONIDE SUSP 40MG/ML 1ML VIAL As Ordered ONE
== END ==
LOC: M PAIN 15:00
PROVIDERS: ATTEND Anesthesiology
DX: M79.18 Myalgia, other site (principal); G89.29 Other chronic pain; E11.9 Type 2 diabetes mellitus without complications; I10 Essential (primary) hypertension; G25.81 Restless legs syndrome; M19.90 Unspecified osteoarthritis, unspecified site; E55.9 Vitamin D deficiency, unspecified; M81.0 Age-related osteoporosis without current pathological fracture; G47.00 Insomnia, unspecified; K58.9 Irritable bowel syndrome, unspecified; Z79.891 Long term (current) use of opiate analgesic; Z79.899 Other long term (current) drug therapy; Z88.5 Allergy status to narcotic agent
CPT/HCPCS: 20552; J0665; J3301

== ENCOUNTER → 2023-10-01 | Outpatient (CLI) | payer MEDICARE ==
[~2023-10-01] MED LIST changes: -TRIAMCINOLONE ACETONIDE SUSP 40MG/ML 1ML VIAL As Ordered ONE
== END ==
LOC: M WHC 08:42
PROVIDERS: ATTEND Internal Medicine Gastroenterology
DX: K74.60 Unspecified cirrhosis of liver (principal)

== ENCOUNTER → 2023-10-16 | Outpatient (CLI) | payer MEDICARE | LOC: M PAIN 10:15 | PROVIDERS: ATTEND Nurse Practitioner Family | DX: M96.1 Postlaminectomy syndrome, not elsewhere classified (principal); M25.552 Pain in left hip; G89.29 Other chronic pain; E11.9 Type 2 diabetes mellitus without complications; I10 Essential (primary) hypertension; G25.81 Restless legs syndrome; M19.90 Unspecified osteoarthritis, unspecified site; E55.9 Vitamin D deficiency, unspecified; M81.0 Age-related osteoporosis without current pathological fracture; K58.9 Irritable bowel syndrome, unspecified; K74.69 Other cirrhosis of liver; Z79.84 Long term (current) use of oral hypoglycemic drugs; Z79.899 Other long term (current) drug therapy; Z88.5 Allergy status to narcotic agent ==

== ENCOUNTER → 2023-10-29 | Outpatient (CLI) | payer MEDICARE | LOC: M PLAIMG 13:33 | PROVIDERS: ATTEND Nurse Practitioner Family | DX: M96.1 Postlaminectomy syndrome, not elsewhere classified (principal); M25.552 Pain in left hip ==

== ENCOUNTER → 2023-11-06 | Outpatient (CLI) | payer MEDICARE | LOC: M PAIN 09:45 | PROVIDERS: ATTEND Nurse Practitioner Family | DX: M51.16 Intervertebral disc disorders with radiculopathy, lumbar region (principal); E11.9 Type 2 diabetes mellitus without complications; I10 Essential (primary) hypertension; G25.81 Restless legs syndrome; Z79.84 Long term (current) use of oral hypoglycemic drugs; Z79.899 Other long term (current) drug therapy; Z88.5 Allergy status to narcotic agent ==

== ENCOUNTER → 2023-11-27 | Outpatient (CLI) | payer MEDICARE ==
[2023-11-27 12:17] LABS: BASO % 0.8 % (0.0-1.0); EOS # 0.1 10^3/uL (0.0-0.5); EOS % 2.5 % (0.0-3.0); HEMATOCRIT 37.4 % (36.0-47.0); HEMOGLOBIN 12.7 g/dl (12.0-15.5); LYMPH # 1.9 10^3/uL (1.5-5.0); LYMPH % 39.4 % (24.0-44.0); MEAN CORPUSCULAR HEMOGLOBIN 32.2 pg (27.0-33.0); MEAN CORPUSCULAR VOLUME 94.7 fl (80.0-96.0); MONO # 0.5 10^3/uL (0.0-0.8); MONO % 11.4 % (2.0-8.0); NEUTROPHILS # 2.2 10^3/uL (1.5-8.5); NEUTROPHILS % 45.7 % (36.0-66.0); PLATELET COUNT, AUTOMATED 121 10^3/uL (150-450); RED BLOOD COUNT 3.95 10^6/uL (4.00-5.40); WHITE BLOOD COUNT 4.8 10^3/uL (4.0-10.0)
[2023-11-27 12:21] LABS: ALBUMIN 3.2 G/DL (3.2-5.2); ALKALINE PHOSPHATASE 68 U/L (46-116); ALT/SGPT 31 U/L (7.0-40); AST/SGOT 18 U/L (<34); BILIRUBIN,TOTAL 1.1 MG/DL (0.3-1.2); BLOOD UREA NITROGEN 19 MG/DL (9-23); CALCIUM LEVEL 8.9 MG/DL (8.3-10.6); CARBON DIOXIDE LEVEL 29 MMOL/L (20-31); CHLORIDE LEVEL 103 MMOL/L (98-107); CREATININE FOR GFR 0.73 MG/DL (0.55-1.30); GLOMERULAR FILTRATION RATE > 60.0 (>32); GLUCOSE, FASTING 198 MG/DL (74-106); POTASSIUM SERUM 3.9 MMOL/L (3.5-5.1); SODIUM LEVEL 139 MMOL/L (136-145); TOTAL PROTEIN 6.2 G/DL (5.7-8.2)
[2023-11-27 13:42] LABS: HEMOGLOBIN A1c 6.7 % (4.0-6.0)
== END ==
LOC: M PLAIMG 09:49
PROVIDERS: ATTEND Internal Medicine Hematology
DX: J98.4 Other disorders of lung (principal); R06.09 Other forms of dyspnea; E11.9 Type 2 diabetes mellitus without complications

== ENCOUNTER → 2023-12-01 | Outpatient (CLI) | payer MEDICARE ==
[~2023-12-01] MED LIST changes: +ISOVUE-370 76% 100ML VIAL ONE
== END ==
LOC: M PLAIMG 12:17
PROVIDERS: ATTEND Internal Medicine Hematology
DX: R06.02 Shortness of breath (principal)
CPT/HCPCS: 71275; Q9967

== ENCOUNTER → 2023-12-12 | Outpatient (CLI) | payer MEDICARE ==
[~2023-12-12] MED LIST changes: -ISOVUE-370 76% 100ML VIAL ONE; +ISOVUE-M 300 61% 15ML VIAL As Ordered ONE; +LIDOCAINE 1% SDV 30ML VIAL As Ordered ONE; +dexAMETHasone 10MG/1ML VIAL PRES.FREE As Ordered ONE
== END ==
LOC: M PAIN 10:00
PROVIDERS: ATTEND Anesthesiology
DX: M51.16 Intervertebral disc disorders with radiculopathy, lumbar region (principal); E11.9 Type 2 diabetes mellitus without complications; G89.29 Other chronic pain; I10 Essential (primary) hypertension; G25.81 Restless legs syndrome; M19.90 Unspecified osteoarthritis, unspecified site; E55.9 Vitamin D deficiency, unspecified; M81.0 Age-related osteoporosis without current pathological fracture; G47.00 Insomnia, unspecified; K58.9 Irritable bowel syndrome, unspecified; K74.69 Other cirrhosis of liver; Z79.84 Long term (current) use of oral hypoglycemic drugs; Z79.899 Other long term (current) drug therapy; Z88.5 Allergy status to narcotic agent
CPT/HCPCS: 62323; J1100; Q9967

== ENCOUNTER 2023-12-24 09:34 | Emergency (ER) | payer MEDICARE ==
[~2023-12-24 09:34] MED LIST changes: -ISOVUE-M 300 61% 15ML VIAL As Ordered ONE; -LIDOCAINE 1% SDV 30ML VIAL As Ordered ONE; -dexAMETHasone 10MG/1ML VIAL PRES.FREE As Ordered ONE
[2023-12-24 10:32] LABS: BASO % 0.7 % (0.0-1.0); EOS # 0.1 10^3/uL (0.0-0.5); HEMATOCRIT 37.3 % (36.0-47.0); HEMOGLOBIN 12.8 g/dl (12.0-15.5); LYMPH # 1.5 10^3/uL (1.5-5.0); LYMPH % 27.1 % (24.0-44.0); MEAN CORPUSCULAR HEMOGLOBIN 32.5 pg (27.0-33.0); MEAN CORPUSCULAR HGB CONC 34.3 g/dl (32.0-36.5); MEAN CORPUSCULAR VOLUME 94.7 fl (80.0-96.0); MONO # 0.5 10^3/uL (0.0-0.8); NEUTROPHILS # 3.3 10^3/uL (1.5-8.5); PLATELET COUNT, AUTOMATED 118 10^3/uL (150-450); RED BLOOD COUNT 3.94 10^6/uL (4.00-5.40); WHITE BLOOD COUNT 5.4 10^3/uL (4.0-10.0)
[2023-12-24 10:57] LABS: LIPASE 70 U/L (12-53)
[2023-12-24 10:59] LABS: ALBUMIN 3.3 G/DL (3.2-5.2); ALKALINE PHOSPHATASE 87 U/L (46-116); ALT/SGPT 39 U/L (7.0-40); AST/SGOT 25 U/L (<34); BILIRUBIN,DIRECT 0.3 MG/DL (<0.4); BILIRUBIN,TOTAL 1.1 MG/DL (0.3-1.2); BLOOD UREA NITROGEN 22 MG/DL (9-23); CALCIUM LEVEL 8.5 MG/DL (8.3-10.6); CARBON DIOXIDE LEVEL 28 MMOL/L (20-31); CHLORIDE LEVEL 104 MMOL/L (98-107); CREATININE FOR GFR 0.66 MG/DL (0.55-1.30); GLOMERULAR FILTRATION RATE > 60.0 (>32); GLUCOSE, FASTING 278 MG/DL (74-106); SODIUM LEVEL 135 MMOL/L (136-145); TOTAL PROTEIN 6.4 G/DL (5.7-8.2)
[2023-12-24] MEDS ORDERED: ISOVUE-370 76% 100ML VIAL As Ordered ONE (12:29)
[2023-12-24 14:19] VITALS: BP 131/70; TEMP 96.3; O2SAT 98
== END 2023-12-24 14:24 | disposition home or self-care (01) ==
LOC: M ED 09:34
DX: R04.2 Hemoptysis (principal); I85.00 Esophageal varices without bleeding; K76.0 Fatty (change of) liver, not elsewhere classified; E11.9 Type 2 diabetes mellitus without complications; I10 Essential (primary) hypertension; Z79.4 Long term (current) use of insulin; Z79.84 Long term (current) use of oral hypoglycemic drugs; Z79.899 Other long term (current) drug therapy
CPT/HCPCS: 36415; 71275; 74177; 80048; 80076; 83690; 85025; 99284; Q9967

== ENCOUNTER → 2023-12-30 | Outpatient (REF) | payer MEDICARE ==
[2023-12-30 15:34] LABS: BASO # 0.1 10^3/uL (0.0-0.2); BASO % 1.1 % (0.0-1.0); EOS # 0.2 10^3/uL (0.0-0.5); EOS % 4.1 % (0.0-3.0); HEMATOCRIT 37.4 % (36.0-47.0); HEMOGLOBIN 12.8 g/dl (12.0-15.5); LYMPH # 1.6 10^3/uL (1.5-5.0); LYMPH % 36.8 % (24.0-44.0); MEAN CORPUSCULAR HEMOGLOBIN 32.3 pg (27.0-33.0); MEAN CORPUSCULAR HGB CONC 34.2 g/dl (32.0-36.5); MEAN CORPUSCULAR VOLUME 94.4 fl (80.0-96.0); MONO # 0.5 10^3/uL (0.0-0.8); MONO % 11.2 % (2.0-8.0); NEUTROPHILS % 46.6 % (36.0-66.0); PLATELET COUNT, AUTOMATED 127 10^3/uL (150-450); RED BLOOD COUNT 3.96 10^6/uL (4.00-5.40); WHITE BLOOD COUNT 4.4 10^3/uL (4.0-10.0)
[2023-12-30 15:39] LABS: ERYTHROCYTE SEDIMENTATION RATE 13 mm/hr (0-30)
[2023-12-30 16:04] LABS: C REACTIVE PROTEIN QUANTITATIV < 0.40 MG/DL (<1.0)
[2023-12-30 16:08] LABS: FREE T4 0.86 NG/DL (0.89-1.76); THYROID STIMULATING HORMONE 1.422 uIU/ML (0.55-4.78); TOTAL 25(OH) VITAMIN D 32.7 NG/ML (20.0-100.0)
== END ==
LOC: M LAB REF 15:17
PROVIDERS: ATTEND Internal Medicine Critical Care Medicine
DX: R53.1 Weakness (principal); Z79.899 Other long term (current) drug therapy

== ENCOUNTER → 2024-01-06 | Outpatient (CLI) | payer MEDICARE | LOC: M PLALAB 08:51 | PROVIDERS: ATTEND Physician Assistant Medical | DX: K74.60 Unspecified cirrhosis of liver (principal) ==

== ENCOUNTER → 2024-01-12 | Outpatient (CLI) | payer MEDICARE ==
[~2024-01-12] MED LIST changes: +GABA-1490 PO; -GABA600T4 PO
== END ==
LOC: M PAIN 14:45
PROVIDERS: ATTEND Nurse Practitioner Family
DX: G89.29 Other chronic pain (principal); M51.16 Intervertebral disc disorders with radiculopathy, lumbar region; E11.9 Type 2 diabetes mellitus without complications; I10 Essential (primary) hypertension; G25.81 Restless legs syndrome; M19.90 Unspecified osteoarthritis, unspecified site; E55.9 Vitamin D deficiency, unspecified; M81.0 Age-related osteoporosis without current pathological fracture; G47.00 Insomnia, unspecified; K58.9 Irritable bowel syndrome, unspecified; K74.60 Unspecified cirrhosis of liver; Z79.84 Long term (current) use of oral hypoglycemic drugs; Z79.899 Other long term (current) drug therapy; Z88.5 Allergy status to narcotic agent

== ENCOUNTER → 2024-01-30 | Outpatient (CLI) | payer MEDICARE ==
[~2024-01-30] MED LIST changes: +ISOVUE-M 300 61% 15ML VIAL As Ordered ONE; +LIDOCAINE 1% SDV 30ML VIAL As Ordered ONE; +dexAMETHasone 10MG/1ML VIAL PRES.FREE As Ordered ONE
== END ==
LOC: M PAIN 14:00
PROVIDERS: ATTEND Anesthesiology
DX: M51.16 Intervertebral disc disorders with radiculopathy, lumbar region (principal); G89.29 Other chronic pain; E11.9 Type 2 diabetes mellitus without complications; I10 Essential (primary) hypertension; G25.81 Restless legs syndrome; E55.9 Vitamin D deficiency, unspecified; M81.0 Age-related osteoporosis without current pathological fracture; K74.60 Unspecified cirrhosis of liver; Z79.891 Long term (current) use of opiate analgesic; Z79.899 Other long term (current) drug therapy; Z88.5 Allergy status to narcotic agent
CPT/HCPCS: 64483; 64484; J0665; J1100; Q9967

== ENCOUNTER → 2024-02-06 | Outpatient (CLI) | payer MEDICARE ==
[~2024-02-06] MED LIST changes: -ISOVUE-M 300 61% 15ML VIAL As Ordered ONE; -LIDOCAINE 1% SDV 30ML VIAL As Ordered ONE; -dexAMETHasone 10MG/1ML VIAL PRES.FREE As Ordered ONE
== END ==
LOC: M WHC 07:56
PROVIDERS: ATTEND Physician Assistant Medical
DX: K74.60 Unspecified cirrhosis of liver (principal)

== ENCOUNTER → 2024-02-25 | Outpatient (CLI) | payer MEDICARE ==
[~2024-02-25] MED LIST changes: +GABA-1172 PO; -GABA-282 PO
[2024-02-25 10:27] LABS: BASO # 0.1 10^3/uL (0.0-0.2); EOS # 0.2 10^3/uL (0.0-0.5); EOS % 3.6 % (0.0-3.0); HEMATOCRIT 37.1 % (36.0-47.0); HEMOGLOBIN 12.8 g/dl (12.0-15.5); LYMPH % 39.4 % (24.0-44.0); MEAN CORPUSCULAR HEMOGLOBIN 32.6 pg (27.0-33.0); MEAN CORPUSCULAR HGB CONC 34.5 g/dl (32.0-36.5); MEAN CORPUSCULAR VOLUME 94.4 fl (80.0-96.0); MONO # 0.6 10^3/uL (0.0-0.8); MONO % 11.9 % (2.0-8.0); NEUTROPHILS # 2.2 10^3/uL (1.5-8.5); NEUTROPHILS % 43.9 % (36.0-66.0); PLATELET COUNT, AUTOMATED 127 10^3/uL (150-450); RED BLOOD COUNT 3.93 10^6/uL (4.00-5.40)
[2024-02-25 10:55] LABS: C REACTIVE PROTEIN QUANTITATIV < 0.40 MG/DL (<1.0); CREATININE, URINE 79.8 MG/DL
[2024-02-25 10:56] LABS: ALBUMIN 3.1 G/DL (3.2-5.2); ALKALINE PHOSPHATASE 77 U/L (46-116); ALT/SGPT 37 U/L (7.0-40); AST/SGOT 28 U/L (<34); BILIRUBIN,TOTAL 1.3 MG/DL (0.3-1.2); BLOOD UREA NITROGEN 29 MG/DL (9-23); CALCIUM LEVEL 8.9 MG/DL (8.3-10.6); CARBON DIOXIDE LEVEL 30 MMOL/L (20-31); CHLORIDE LEVEL 106 MMOL/L (98-107); CHOLESTEROL LEVEL 184 MG/DL (<200); CHOLESTEROL RISK RATIO 2.46 (<5); CREATININE FOR GFR 0.86 MG/DL (0.55-1.30); GLOMERULAR FILTRATION RATE > 60.0 (>32); GLUCOSE, FASTING 160 MG/DL (74-106); HDL CHOLESTEROL 74.5 MG/DL (>40); LDL CHOLESTEROL 97.1 MG/DL (<100); NON-HDL-C 109.5 MG/DL; POTASSIUM SERUM 3.7 MMOL/L (3.5-5.1); SODIUM LEVEL 139 MMOL/L (136-145); TOTAL PROTEIN 6.3 G/DL (5.7-8.2); TRIGLYCERIDES LEVEL 62 MG/DL (<150)
[2024-02-25 10:58] LABS: THYROID STIMULATING HORMONE 1.288 uIU/ML (0.55-4.78); TOTAL 25(OH) VITAMIN D 27.9 NG/ML (20.0-100.0)
[2024-02-25 11:00] LABS: FREE T4 0.99 NG/DL (0.89-1.76); VITAMIN B12 LEVEL 708 PG/ML (211-911)
== END ==
LOC: M PLALAB 08:14
PROVIDERS: ATTEND Internal Medicine Hematology
DX: E11.9 Type 2 diabetes mellitus without complications (principal)

== ENCOUNTER → 2024-02-26 | Outpatient (CLI) | payer MEDICARE | LOC: M PLAIMG 10:37 | PROVIDERS: ATTEND Internal Medicine Critical Care Medicine | DX: R06.00 Dyspnea, unspecified (principal) ==

== ENCOUNTER → 2024-02-27 | Outpatient (CLI) | payer MEDICARE | LOC: M PAIN 10:15 | PROVIDERS: ATTEND Nurse Practitioner Family | DX: M46.1 Sacroiliitis, not elsewhere classified (principal); G89.29 Other chronic pain; E11.9 Type 2 diabetes mellitus without complications; I10 Essential (primary) hypertension; G25.81 Restless legs syndrome; M19.90 Unspecified osteoarthritis, unspecified site; E55.9 Vitamin D deficiency, unspecified; M81.0 Age-related osteoporosis without current pathological fracture; K58.9 Irritable bowel syndrome, unspecified; K74.60 Unspecified cirrhosis of liver; Z79.891 Long term (current) use of opiate analgesic; Z79.84 Long term (current) use of oral hypoglycemic drugs; Z79.899 Other long term (current) drug therapy; Z88.5 Allergy status to narcotic agent; N28.89 Other specified disorders of kidney and ureter; Z85.528 Personal history of other malignant neoplasm of kidney | CPT/HCPCS: G0463 ×2 ==

== ENCOUNTER → 2024-03-08 | Outpatient (CLI) | payer MEDICARE | LOC: M PLAIMG 12:41 | PROVIDERS: ATTEND Nurse Practitioner Family | DX: M46.1 Sacroiliitis, not elsewhere classified (principal) ==

== ENCOUNTER → 2024-03-19 | Outpatient (CLI) | payer MEDICARE ==
[~2024-03-19] MED LIST changes: +ISOVUE-M 300 61% 15ML VIAL As Ordered ONE; +LIDOCAINE 1% SDV 30ML VIAL As Ordered ONE; +TRIAMCINOLONE ACETONIDE SUSP 40MG/ML 1ML VIAL As Ordered ONE; +oxyCODONE 5MG TAB As Ordered ONE
== END ==
LOC: M PAIN 10:00
PROVIDERS: ATTEND Anesthesiology
DX: M46.1 Sacroiliitis, not elsewhere classified (principal); G89.29 Other chronic pain; E11.9 Type 2 diabetes mellitus without complications; I10 Essential (primary) hypertension; G25.81 Restless legs syndrome; E55.9 Vitamin D deficiency, unspecified; M81.0 Age-related osteoporosis without current pathological fracture; G47.00 Insomnia, unspecified; K58.9 Irritable bowel syndrome, unspecified; K74.69 Other cirrhosis of liver; Z79.891 Long term (current) use of opiate analgesic; Z79.84 Long term (current) use of oral hypoglycemic drugs; Z79.899 Other long term (current) drug therapy; Z88.5 Allergy status to narcotic agent
CPT/HCPCS: G0260; J0665; J3301; Q9967

== ENCOUNTER → 2024-03-26 | Outpatient (CLI) | payer MEDICARE ==
[~2024-03-26] MED LIST changes: -CYCL5TAB PO; +CYCL5TAB4 PO; -ISOVUE-M 300 61% 15ML VIAL As Ordered ONE; -LACT10SO3 PO; +LACT10SO94 PO; -LEVO750T14 PO; +LEVO75TAB PO; -LIDOCAINE 1% SDV 30ML VIAL As Ordered ONE; -MIDO2.5T PO; +MIDO2.5T3 PO; -TRIAMCINOLONE ACETONIDE SUSP 40MG/ML 1ML VIAL As Ordered ONE; -oxyCODONE 5MG TAB As Ordered ONE
[2024-03-26 14:58] LABS: BASO # 0.1 10^3/uL (0.0-0.2); BASO % 0.6 % (0.0-1.0); EOS # 0.1 10^3/uL (0.0-0.5); EOS % 0.5 % (0.0-3.0); HEMATOCRIT 39.9 % (36.0-47.0); LYMPH # 2.4 10^3/uL (1.5-5.0); LYMPH % 23.7 % (24.0-44.0); MEAN CORPUSCULAR HEMOGLOBIN 32.3 pg (27.0-33.0); MEAN CORPUSCULAR HGB CONC 35.1 g/dl (32.0-36.5); MEAN CORPUSCULAR VOLUME 92.1 fl (80.0-96.0); MONO % 9.9 % (2.0-8.0); NEUTROPHILS # 6.6 10^3/uL (1.5-8.5); PLATELET COUNT, AUTOMATED 150 10^3/uL (150-450); RED BLOOD COUNT 4.33 10^6/uL (4.00-5.40); WHITE BLOOD COUNT 10.1 10^3/uL (4.0-10.0)
[2024-03-26 15:33] LABS: ALBUMIN 3.4 G/DL (3.2-5.2); ALKALINE PHOSPHATASE 103 U/L (35-104); ALT/SGPT 37 U/L (7.0-40); AST/SGOT 13 U/L (<34); BILIRUBIN,TOTAL 1.4 MG/DL (0.3-1.2); BLOOD UREA NITROGEN 27 MG/DL (9-23); CALCIUM LEVEL 9.2 MG/DL (8.3-10.6); CARBON DIOXIDE LEVEL 26 MMOL/L (20-31); CHLORIDE LEVEL 103 MMOL/L (98-107); CREATININE FOR GFR 0.79 MG/DL (0.55-1.30); GLOMERULAR FILTRATION RATE > 60.0 (>32); GLUCOSE, FASTING 456 MG/DL (74-106); POTASSIUM SERUM 4.5 MMOL/L (3.5-5.1); SODIUM LEVEL 136 MMOL/L (136-145); TOTAL PROTEIN 7.2 G/DL (5.7-8.2)
[2024-03-29 14:13] LABS: ANA SCREEN, IFA NEGATIVE (NEGATIVE)
== END ==
LOC: M PLALAB 12:53
PROVIDERS: ATTEND Internal Medicine Critical Care Medicine
DX: R53.1 Weakness (principal)

== ENCOUNTER → 2024-04-26 | Outpatient (CLI) | payer MEDICARE ==
[2024-04-26 10:18] LABS: BASO # 0.1 10^3/uL (0.0-0.2); BASO % 0.7 % (0.0-1.0); EOS # 0.1 10^3/uL (0.0-0.5); EOS % 0.9 % (0.0-3.0); HEMOGLOBIN 13.5 g/dl (12.0-15.5); LYMPH % 44.1 % (24.0-44.0); MEAN CORPUSCULAR HEMOGLOBIN 32.3 pg (27.0-33.0); MEAN CORPUSCULAR HGB CONC 34.6 g/dl (32.0-36.5); MEAN CORPUSCULAR VOLUME 93.3 fl (80.0-96.0); MONO # 0.8 10^3/uL (0.0-0.8); MONO % 11.2 % (2.0-8.0); NEUTROPHILS # 2.9 10^3/uL (1.5-8.5); NEUTROPHILS % 42.8 % (36.0-66.0); PLATELET COUNT, AUTOMATED 151 10^3/uL (150-450); RED BLOOD COUNT 4.18 10^6/uL (4.00-5.40); WHITE BLOOD COUNT 6.7 10^3/uL (4.0-10.0)
[2024-04-26 10:22] LABS: ALBUMIN 3.1 G/DL (3.2-5.2); ALKALINE PHOSPHATASE 71 U/L (35-104); ALT/SGPT 43 U/L (7.0-40); AST/SGOT 28 U/L (<34); BILIRUBIN,TOTAL 1.5 MG/DL (0.3-1.2); BLOOD UREA NITROGEN 21 MG/DL (9-23); CALCIUM LEVEL 9.2 MG/DL (8.3-10.6); CARBON DIOXIDE LEVEL 32 MMOL/L (20-31); CHLORIDE LEVEL 102 MMOL/L (98-107); CREATININE FOR GFR 0.83 MG/DL (0.55-1.30); GLOMERULAR FILTRATION RATE > 60.0 (>32); GLUCOSE, FASTING 160 MG/DL (74-106); IRON (FE) 84 UG/DL (50-170); POTASSIUM SERUM 3.9 MMOL/L (3.5-5.1); SODIUM LEVEL 139 MMOL/L (136-145); TOTAL PROTEIN 6.7 G/DL (5.7-8.2)
[2024-04-26 10:32] LABS: INR 1.13; PARTIAL THROMBOPLASTIN TIME 45.9 SECONDS (24.8-34.2); PROTHROMBIN TIME 14.8 SECONDS (12.5-14.5)
== END ==
LOC: M PLALAB 08:29
PROVIDERS: ATTEND Internal Medicine Hematology
DX: I85.01 Esophageal varices with bleeding (principal); D50.9 Iron deficiency anemia, unspecified

== ENCOUNTER → 2024-04-26 | Outpatient (REF) | payer MEDICARE | LOC: M LAB REF 09:28 | PROVIDERS: ATTEND Internal Medicine Critical Care Medicine | DX: R19.7 Diarrhea, unspecified (principal) ==

== ENCOUNTER → 2024-05-20 | Outpatient (CLI) | payer MEDICARE ==
[~2024-05-20] MED LIST changes: +ISOVUE-370 76% 100ML VIAL As Ordered ONE
== END ==
LOC: M RAD 08:32
PROVIDERS: ATTEND Internal Medicine Nephrology
DX: N26.9 Renal sclerosis, unspecified (principal); K74.60 Unspecified cirrhosis of liver; K57.30 Diverticulosis of large intestine without perforation or abscess without bleeding; I86.4 Gastric varices
CPT/HCPCS: 74178; Q9967

== ENCOUNTER → 2024-06-03 | Outpatient (CLI) | payer MEDICARE ==
[~2024-06-03] MED LIST changes: -ISOVUE-370 76% 100ML VIAL As Ordered ONE
[2024-06-03 18:04] LABS: HEMATOCRIT 37.9 % (36.0-47.0); MEAN CORPUSCULAR HEMOGLOBIN 32.6 pg (27.0-33.0); MEAN CORPUSCULAR HGB CONC 34.3 g/dl (32.0-36.5); PLATELET COUNT, AUTOMATED 126 10^3/uL (150-450); RED BLOOD COUNT 3.99 10^6/uL (4.00-5.40)
[2024-06-03 18:22] LABS: ALBUMIN 3.1 G/DL (3.2-5.2); ALKALINE PHOSPHATASE 107 U/L (35-104); ALT/SGPT 43 U/L (7.0-40); AST/SGOT 34 U/L (<34); BILIRUBIN,DIRECT 0.7 MG/DL (<0.4); BILIRUBIN,TOTAL 1.8 MG/DL (0.3-1.2); TOTAL PROTEIN 6.5 G/DL (5.7-8.2)
== END ==
LOC: M LRY 11:51
PROVIDERS: ATTEND Physician Assistant Medical
DX: K74.60 Unspecified cirrhosis of liver (principal); I85.01 Esophageal varices with bleeding

== ENCOUNTER → 2024-06-04 | Outpatient (REF) | payer MEDICARE | LOC: M SFHCPLAZ 16:53 | PROVIDERS: ATTEND Student in an Organized Health Care Education/Training Program | DX: R35.0 Frequency of micturition (principal) ==

== ENCOUNTER → 2024-06-08 | Outpatient (CLI) | payer MEDICARE | LOC: M PAIN 10:45 | PROVIDERS: ATTEND Nurse Practitioner Family | DX: M51.16 Intervertebral disc disorders with radiculopathy, lumbar region (principal); M46.1 Sacroiliitis, not elsewhere classified; M25.551 Pain in right hip; G89.29 Other chronic pain; E11.9 Type 2 diabetes mellitus without complications; I10 Essential (primary) hypertension; E55.9 Vitamin D deficiency, unspecified; Z79.84 Long term (current) use of oral hypoglycemic drugs; Z79.891 Long term (current) use of opiate analgesic; Z79.82 Long term (current) use of aspirin; Z79.899 Other long term (current) drug therapy; Z88.5 Allergy status to narcotic agent ==

== ENCOUNTER → 2024-06-28 | Outpatient (CLI) | payer MEDICARE | LOC: M RAD 08:12 | PROVIDERS: ATTEND Physician Assistant Medical | DX: K74.60 Unspecified cirrhosis of liver (principal) ==

== ENCOUNTER → 2024-07-08 | Outpatient (CLI) | payer MEDICARE | LOC: M PLARAD 12:33 | PROVIDERS: ATTEND Physician Assistant Medical | DX: M96.1 Postlaminectomy syndrome, not elsewhere classified (principal) ==

== ENCOUNTER 2024-07-12 10:55 | Day surgery (SDC) | payer MEDICARE ==
[~2024-07-12] VITALS: Ht 149.9 cm; Wt 66.6 kg
[2024-07-12 12:03] VITALS: TEMP 97.5
[2024-07-12] MEDS ORDERED: LIDOCAINE 2% 100MG/5ML SDV (FOR ANES.) As Ordered ONE (12:07)
[2024-07-12] MEDS ORDERED: propofoL 200 MG/20 ML VIAL As Ordered ONE (12:07)
[2024-07-12 12:30] VITALS: BP 147/64; O2SAT 97
== END 2024-07-12 12:41 | disposition home or self-care (01) ==
LOC: M OPP 10:55
PROVIDERS: ATTEND Internal Medicine Gastroenterology
DX: I85.00 Esophageal varices without bleeding (principal); Z79.84 Long term (current) use of oral hypoglycemic drugs; Z79.891 Long term (current) use of opiate analgesic; Z79.85 Long-term (current) use of injectable non-insulin antidiabetic drugs; Z79.899 Other long term (current) drug therapy; K74.60 Unspecified cirrhosis of liver; M79.605 Pain in left leg

== ENCOUNTER → 2024-08-13 | Outpatient (CLI) | payer MEDICARE | LOC: M WHC 09:27 | PROVIDERS: ATTEND Student in an Organized Health Care Education/Training Program | DX: M81.0 Age-related osteoporosis without current pathological fracture (principal); M85.852 Other specified disorders of bone density and structure, left thigh ==

== ENCOUNTER → 2024-09-16 | Outpatient (CLI) | payer MEDICARE ==
[~2024-09-16] MED LIST changes: -NADO20TA PO; +NADO20TA38 PO
[2024-09-16 13:01] LABS: BASO # 0.1 10^3/uL (0.0-0.2); BASO % 0.8 % (0.0-1.0); EOS # 0.3 10^3/uL (0.0-0.5); EOS % 2.8 % (0.0-3.0); HEMATOCRIT 37.7 % (36.0-47.0); HEMOGLOBIN 12.9 g/dl (12.0-15.5); LYMPH # 2.4 10^3/uL (1.5-5.0); LYMPH % 26.8 % (24.0-44.0); MEAN CORPUSCULAR HGB CONC 34.2 g/dl (32.0-36.5); MEAN CORPUSCULAR VOLUME 93.5 fl (80.0-96.0); MONO # 0.9 10^3/uL (0.0-0.8); MONO % 9.7 % (2.0-8.0); NEUTROPHILS # 5.4 10^3/uL (1.5-8.5); NEUTROPHILS % 59.7 % (36.0-66.0); PLATELET COUNT, AUTOMATED 120 10^3/uL (150-450); RED BLOOD COUNT 4.03 10^6/uL (4.00-5.40)
[2024-09-16 13:32] LABS: ALBUMIN 3.3 G/DL (3.2-5.2); BILIRUBIN,DIRECT 0.6 MG/DL (<0.4); BILIRUBIN,TOTAL 1.8 MG/DL (0.3-1.2); CALCIUM LEVEL 8.5 MG/DL (8.3-10.6); CHOLESTEROL RISK RATIO 2.03 (<5); CREATININE FOR GFR 0.61 MG/DL (0.55-1.30); GLOMERULAR FILTRATION RATE 88.7 (>32); HDL CHOLESTEROL 63.4 MG/DL (>40); LDL CHOLESTEROL 56.2 MG/DL (<100); NON-HDL-C 65.6 MG/DL; POTASSIUM SERUM 4.1 MMOL/L (3.5-5.1); THYROID STIMULATING HORMONE 1.383 uIU/ML (0.55-4.78); TOTAL PROTEIN 6.5 G/DL (5.7-8.2)
[2024-09-16 13:59] LABS: HEMOGLOBIN A1c 7.7 % (4.0-6.0)
[2024-09-16 15:40] LABS: CREATININE, URINE 107.2 MG/DL; MAU/CREAT RATIO 17.7 MCG/MG (0.0-30.0)
== END ==
LOC: M PLALAB 11:00
PROVIDERS: ATTEND Student in an Organized Health Care Education/Training Program
DX: E80.6 Other disorders of bilirubin metabolism (principal); E78.00 Pure hypercholesterolemia, unspecified; F41.9 Anxiety disorder, unspecified; E55.9 Vitamin D deficiency, unspecified; I10 Essential (primary) hypertension; E11.9 Type 2 diabetes mellitus without complications

== ENCOUNTER → 2024-09-30 | Outpatient (REF) | payer MEDICARE ==
[2024-09-30 15:09] LABS: HEMATOCRIT 38.1 % (36.0-47.0); HEMOGLOBIN 13.5 g/dl (12.0-15.5); MEAN CORPUSCULAR HEMOGLOBIN 32.5 pg (27.0-33.0); MEAN CORPUSCULAR HGB CONC 35.4 g/dl (32.0-36.5); MEAN CORPUSCULAR VOLUME 91.8 fl (80.0-96.0); PLATELET COUNT, AUTOMATED 120 10^3/uL (150-450); RED BLOOD COUNT 4.15 10^6/uL (4.00-5.40); WHITE BLOOD COUNT 6.5 10^3/uL (4.0-10.0)
[2024-09-30 15:18] LABS: INR 1.18; PROTHROMBIN TIME 15.3 SECONDS (12.5-14.5)
== END ==
LOC: M LABWUC 15:01
PROVIDERS: ATTEND Dentist
DX: K74.69 Other cirrhosis of liver (principal)

== ENCOUNTER 2024-12-08 19:36 | Emergency (ER) | payer MEDICARE ==
[~2024-12-08] VITALS: Ht 142.2 cm; Wt 61.4 kg
[~2024-12-08 19:36] MED LIST changes: -ACE65ERTAB PO; +ACET-1593 PO
[2024-12-08 21:30] VITALS: BP 136/62; TEMP 96.9; O2SAT 97
== END 2024-12-08 21:49 | disposition home or self-care (01) ==
LOC: M ED 19:36
DX: T18.108S Unspecified foreign body in esophagus causing other injury, sequela (principal); E11.9 Type 2 diabetes mellitus without complications; I10 Essential (primary) hypertension; K21.9 Gastro-esophageal reflux disease without esophagitis; M16.12 Unilateral primary osteoarthritis, left hip; M25.552 Pain in left hip; Z79.4 Long term (current) use of insulin; Z79.84 Long term (current) use of oral hypoglycemic drugs; Z79.899 Other long term (current) drug therapy

== ENCOUNTER → 2024-12-08 | Outpatient (CLI) | payer MEDICARE ==
[~2024-12-08] MED LIST changes: +PRAV10TA PO; -PRAV10TA4 PO
== END ==
LOC: M SOG 06:54
PROVIDERS: ATTEND Neuromusculoskeletal Medicine, Sports Medicine
DX: M16.12 Unilateral primary osteoarthritis, left hip (principal); M25.552 Pain in left hip

== ENCOUNTER → 2025-01-28 | Outpatient (CLI) | payer MEDICARE ==
[~2025-01-28] MED LIST changes: +CALC-134 PO; -CALCTAB17 PO
== END ==
LOC: M PLALAB 11:09
PROVIDERS: ATTEND Internal Medicine Gastroenterology
DX: Z79.85 Long-term (current) use of injectable non-insulin antidiabetic drugs (principal); Z79.899 Other long term (current) drug therapy; K75.81 Nonalcoholic steatohepatitis (NASH)

== ENCOUNTER → 2025-02-01 | Outpatient (CLI) | payer MEDICARE | LOC: M RAD 09:58 | PROVIDERS: ATTEND Internal Medicine Gastroenterology | DX: K76.0 Fatty (change of) liver, not elsewhere classified (principal) ==

== ENCOUNTER → 2025-02-22 | Outpatient (REF) | payer MEDICARE | LOC: M SFHCPLAZ 11:54 | PROVIDERS: ATTEND Family Medicine | DX: E11.9 Type 2 diabetes mellitus without complications (principal) ==

== ENCOUNTER → 2025-02-24 | Outpatient (REF) | payer MEDICARE | LOC: M SFHCPLAZ 13:08 | PROVIDERS: ATTEND Family Medicine | DX: Z53.9 Procedure and treatment not carried out, unspecified reason (principal) ==

== ENCOUNTER → 2025-02-25 | Outpatient (CLI) | payer MEDICARE ==
[2025-02-25 14:05] LABS: PLATELET COUNT, AUTOMATED 132 10^3/uL (150-450)
[2025-02-25 14:08] LABS: ALT/SGPT 36.0 U/L (7.0-40); AST/SGOT 32.0 U/L (<34); CALCIUM LEVEL 8.9 MG/DL (8.3-10.6); CARBON DIOXIDE LEVEL 30.0 MMOL/L (20-31); CHLORIDE LEVEL 100.0 MMOL/L (98-107); CREATININE FOR GFR 0.9 MG/DL (0.55-1.30); GLOMERULAR FILTRATION RATE 63.0 (>32); POTASSIUM SERUM 4.6 MMOL/L (3.5-5.1); SODIUM LEVEL 139.0 MMOL/L (136-145)
[2025-02-25 14:29] LABS: ESTIMATED AVERAGE GLUCOSE 140.0 MG/DL (60-110)
[2025-03-02 12:37] LABS: ALPHA 2-MACROGLOBULINS,QN 308 mg/dL (106-279); ALT (SGPT) P5P 22 U/L (6-29); APOLIPOPROTEIN A-1 170 mg/dL (101-198); FIBROSIS SCORE 0.72; FIBROSIS STAGE ADVANCED FIBROSIS (F0); GGT 49 U/L (3-65); HAPTOGLOBIN 76 mg/dL (43-212); NECROINFLAM ACT GRADE NO ACTIVITY (A0); NECROINFLAM ACT SCORE 0.16
== END ==
LOC: M PLALAB 10:14
PROVIDERS: ATTEND Family Medicine
DX: E11.9 Type 2 diabetes mellitus without complications (principal); K74.60 Unspecified cirrhosis of liver

== ENCOUNTER → 2025-03-31 | Outpatient (REF) | payer MEDICARE ==
[~2025-03-31] MED LIST changes: -PROC5TAB57 PO; +PROC5TAB81 PO
== END ==
LOC: M SFHCPLAZ 15:44
PROVIDERS: ATTEND Family Medicine
DX: R39.9 Unspecified symptoms and signs involving the genitourinary system (principal); Z53.9 Procedure and treatment not carried out, unspecified reason

== ENCOUNTER → 2025-04-01 | Outpatient (REF) | payer MEDICARE ==
[~2025-04-01] MED LIST changes: +ACET-1387 PO; -ACET-1593 PO
[2025-04-01 13:53] LABS: APPEARANCE, URINE HAZY (CLEAR); BACTERIA, URINE AUTO NEGATIVE (NEGATIVE); BILIRUBIN, URINE AUTO NEGATIVE (NEGATIVE); BLOOD, URINE BLOOD NEGATIVE (NEGATIVE); GLUCOSE, URINE (UA) AUTO 2+ mg/dL (NEGATIVE); KETONE, URINE AUTO NEGATIVE (NEGATIVE); LEUKOCYTE ESTERASE, URINE AUTO TRACE (NEGATIVE); MUCUS, URINE SMALL (NEGATIVE); NITRITE, URINE AUTO NEGATIVE (NEGATIVE); PROTEIN, URINE AUTO 1+ mg/dL (NEGATIVE); RBC, URINE AUTO 2 /HPF (0-3); SPECIFIC GRAVITY URINE AUTO 1.030 (1.002-1.035); SQUAMOUS EPITHELIAL CELL UR AU 4 /HPF (0-6); TRANSITIONAL EPITHELIAL AUTO 1 /HPF; UROBILINOGEN, URINE AUTO 4.0 mg/dL (0.0-2.0); WBC, URINE AUTO 4 /HPF (0-3)
== END ==
LOC: M SFHCPLAZ 10:36
PROVIDERS: ATTEND Family Medicine
DX: R39.9 Unspecified symptoms and signs involving the genitourinary system (principal)